=== PATIENT | female | born 1950 | race Caucasian/White ===

== ENCOUNTER 2017-08-07 21:45 | Emergency (ER) | payer OTHER, MEDICARE ==
[~2017-08-07] VITALS: Ht 160 cm; Wt 56.2 kg
[2017-08-08 00:04] LABS: BASOPHILS % 0.6 % (0.0-1.0); EOSINOPHILS # (AUTO) 0.3 (0.0-0.4); EOSINOPHILS % 4.9 % (0.0-6.0); HEMOGLOBIN 11.8 g/dL (12.0-16.0); LYMPHOCYTES # (AUTO) 0.9 (1.0-3.2); LYMPHOCYTES % 18.3 % (18.0-39.1); MEAN CORPUSCULAR HEMOGLOBIN 32.8 pg (28-32); MEAN CORPUSCULAR HGB CONC 33.7 g/dL (31-35); MEAN CORPUSCULAR VOLUME 97.2 fL (81-99); MONOCYTES # (AUTO) 0.3 (0.2-0.8); MONOCYTES % 6.6 % (4.4-11.3); NEUTROPHILS # (AUTO) 3.6 (2.1-6.9); NEUTROPHILS % 69.4 % (38.7-80.0); PLATELET COUNT 181 x10e3/uL (140-360); RED CELL DISTRIBUTION WIDTH 12.3 % (11.7-14.4)
[2017-08-08 00:06] LABS: ALANINE AMINOTRANSFERASE 21 IU/L (0-55); ALBUMIN 3.6 g/dL (3.5-5.0); ALBUMIN/GLOBULIN RATIO 0.9 (0.8-2.0); ALKALINE PHOSPHATASE 116 IU/L (40-150); BLOOD UREA NITROGEN 16 mg/dL (7-26); BUN/CREATININE RATIO 20 (6-25); CALCIUM 9.4 mg/dL (8.4-10.2); CARBON DIOXIDE 27 mmol/L (22-29); CHLORIDE 102 mmol/L (98-107); CREATINE KINASE 162 IU/L (29-168); CREATININE, SERUM 0.81 mg/dL (0.57-1.11); EST GLOMERULAR FILTRATION RATE > 60 ML/MIN (60-); GLUCOSE 119 mg/dL (74-118); SODIUM 140 mmol/L (136-145)
--- NOTE | 2017-08-08 00:15 | Diagnostic Imaging Report ---
Exam: Head CT without contrast History: Dizziness Comparison studies: Brain MRI 12/14/2011 Technique: Axial images were obtained from the skull base to the vertex. Coronal and sagittal images reconstructed from the axial data. Intravenous contrast: None Findings: Scalp: No abnormalities. Bones: No fractures, blastic or lytic lesions. Brain sulci: Mildly prominent. Ventricles: Mild compensatory dilatation. No hydrocephalus. Extra-axial spaces: No masses, no fluid collection. Parenchyma: No mass, acute hemorrhage or acute cortical vascular insults. A few scattered hypodensities in the supratentorial white matter are nonspecific but most compatible with chronic small vessel ischemic changes. Sellar/suprasellar region: No abnormalities. Craniocervical junction: Patent foramen magnum. No Chiari one malformation. Incidental findings: Atherosclerotic calcifications in the carotid siphons. IMPRESSION: No acute intracranial abnormalities. Chronic findings: 1. Mild generalized volume loss. 2. Moderate supratentorial microvascular ischemic changes. Signed by: Dr. Bradley Byrd M.D. on 08/08/2017 12:11 AM
== END 2017-08-08 01:50 | disposition home or self-care (01) ==
LOC: ER 21:45
DX: H57.02 Anisocoria (principal); Z82.49 Family history of ischemic heart disease and other diseases of the circulatory system
CPT/HCPCS: 36415; 70450; 80053; 82550; 82553; 84484; 85025; 93005; 99284

== ENCOUNTER → 2017-09-04 | Day surgery (SDC) | payer OTHER, MEDICARE ==
[~2017-09-04] MED LIST: ANASTROZOLE1 MG PO; CLONAZEPAM0.5 MG PO; CYMBALTA20 MG PO; DIAZEPAM5 MG PO; FENTANYL CITRATE/PF 100MCG/2 ML INJ ONE; GEODON20 MG PO; LIPITOR10 MG PO; LIPITOR20 MG PO; LISINOPRIL PO; MIDAZOLAM HCL 2 MG/2 ML VIAL ONE; OMEPRAZOLE40 MG PO; OR PHACO EYE KIT ONE; PREOP PHACO EYE KIT ONE; [UNRECOGNIZED DRUG - OTHER]; [UNRECOGNIZED DRUG - OTHER] PO
--- OUTSIDE RECORDS SUMMARY | 2017-09-04 10:58 | XMS REPORT | Clinical Summary ---
Author Author [facility] Address Unknown Phone Unavailable Care Team Providers Care Solar Business Developer Name Role Phone Asked, Pcp PCP Unavailable Allergies Active Allergy Reactions Severity Noted Date Comments Codeine 07/04/2017 Erythromycin Anaphylaxis High 04/12/2016 Iodine 07/04/2017 injectable Penicillins Anaphylaxis High 04/12/2016 Sulfur 07/04/2017 Current Medications Prescription Sig. Disp. Refills Start End Date Status Date omeprazole (PriLOSEC) 40 Take 40 mg by mouth Active MG capsule daily. clonAZEPAM (KlonoPIN) 2 Take 2 mg by mouth 2 Active MG tablet (two) times a day as needed for seizures. lamoTRIgine (LaMICtal) Take 300 mg by mouth Active 200 MG tablet nightly. Pt takes a 200mg and a 100mg tab together atorvastatin (LIPITOR) 20 Take 20 mg by mouth Active MG tablet daily. diazePAM (VALIUM) 10 MG Take 10 mg by mouth every Active tablet 6 (six) hours as needed for anxiety. DULoxetine (CYMBALTA) 60 Take 60 mg by mouth Active MG capsule daily. anastrozole (ARIMIDEX) 1 Take 1 mg by mouth daily. Active mg chemo tablet ziprasidone (GEODON) 80 Take 80 mg by mouth 2 Active MG capsule (two) times a day with meals. methylphenidate HCl Take 10 mg by mouth 2 Active (RITALIN) 10 MG tablet (two) times a day. ziprasidone (GEODON) 40 TAKE ONE (1) CAPSULE(S) 0 06/24/19 Active MG capsule BY MOUTH EVERY EVENING 18 WITH FOOD. asenapine (SAPHRIS) 10 mg Take 10 mg by mouth 2 07/04/19 Discontin tablet, sublingual (two) times a day. 18 ued lisinopril Take 10 mg by mouth 07/04/19 Discontin (PRINIVIL,ZESTRIL) 10 MG daily. 18 ued tablet diazepam (VALIUM) 10 MG Insert into the vagina 07/04/19 Discontin vaginal suppository once. 18 ued UNABLE TO FIND Take 1 tablet by mouth 07/04/19 Discontin daily. Hormone blockers 18 ued Active Problems Not on file Encounters Date Type Specialty Care Team Description 07/13/2017 [facility] General Surgery Gilbert Canales MD Encounter 07/13/2017 Procedure Pass Plastic Surgery 07/13/2017 Surgery Plastic Surgery Gilbert Canales MD REVISION, RECONSTRUCTION, BREAST 07/05/2017 Anesthesia Plastic Surgery [facility], Event Roxy, HEEL PAINTER 07/04/2017 Pre-Admit Pre-Admission Testing Gilbert Canales MD Preoperative testing Testing (Primary Dx) Appointment 06/15/2017 [facility] Radiology Gilbert Canales MD Personal history of Encounter malignant neoplasm of breast 06/15/2017 [facility] Radiology Gilbert Canales MD Personal history of Encounter malignant neoplasm of breast 06/15/2017 Ancillary Access Gilbert Canales MD Personal history of Orders malignant neoplasm of breast 06/06/2017 Transcribe Access Gilbert Canales MD Personal history of Orders malignant neoplasm of breast (Primary Dx) after 09/03/2016 Family History Medical History Relation Name Comments Diabetes Brother Hypertension Mother Relation Name Status Comments Brother Mother Social History Tobacco Use Types Packs/Day Years Used Date Never Smoker Smokeless Tobacco: Never Used Sex Assigned at Date Recorded Not on file Last Filed Vital Signs Vital Sign Reading Time Taken Blood Pressure 99/51 07/13/2017 6:47 PM MECHANICAL INSPECTOR Pulse 101 07/13/2017 6:47 PM MECHANICAL INSPECTOR Temperature 37.3 C (99.1 F) 07/13/2017 6:47 PM MECHANICAL INSPECTOR Respiratory Rate 18 07/13/2017 6:30 PM MECHANICAL INSPECTOR Oxygen Saturation 95% 07/13/2017 6:47 PM MECHANICAL INSPECTOR Inhaled Oxygen - - Concentration Weight 64.6 kg (142 lb 5 oz) 07/13/2017 6:36 AM MECHANICAL INSPECTOR Height 157.5 cm (5' 2") 07/13/2017 6:36 AM MECHANICAL INSPECTOR Body Mass Index 26.03 07/13/2017 6:36 AM MECHANICAL INSPECTOR Plan of Treatment Health Maintenance Due Date Last Done Comments PAP SMEAR 10/03/1972 COLONOSCOPY 10/03/2001 ZOSTER VACCINE 2011 PNEUMOCOCCAL 10/03/2016 POLYSACCHARIDE VACCINE AGE 65 AND OVER PNEUMOCOCCAL-13 10/03/2016 INFLUENZA VACCINE 01/16/2017 MAMMOGRAM 06/15/2019 06/15/2017, 06/15/2017 Implants Implanted Type Area Production Analyst Device Expiration Model / Identifier Date Serial / Lot 770cc Natrelle Inspira Scf Gel Surgical Right: [employer] 2021 SCF-770 / Breast Implant, Full Projection Implants - Breast [id number] / Implanted: Qty: 1 on 07/13/2017 by Breast [id number] Gilbert Canales MD 750cc Natrelle Inspira Cohesive Surgical Left: [employer] 2021 SCX-750 / Breast Implant Implants - Breast [id number] / Implanted: Qty: 1 on 07/13/2017 by Breast [id number] Gilbert Canales MD Drain Wound Hbls Round Radopaq Surgical N/A: N/A 2228 / Trocar Maria Antonia White 0.18in 15fr - Implants; / [id number] Expanders; Implanted: Qty: 1 on 04/24/2016 by Extenders; Gilbert Canales MD Surgical Wires Explanted Type Area Production Analyst Device Expiration Model / Identifier Date Serial / Lot Breast Impl Inspira Responsive Gel Plastic or Left: [employer] 2019 SRX 700 / Ex-Full Profile 700cc - [id number] - Cosmetic [employer] [id number] / [id number] Implants [id number] Implanted: Qty: 1 on 04/24/2016 by or Tissue Gilbert Canales MD Expanders Explanted: Qty: 1 on 07/13/2017 by or Sets Gilbert Canalse MD [employer] Hp 800cc Right: / Explanted: Qty: 2 on 07/13/2017 by Breast / Gilbert Canales MD [id number] Procedures Procedure Name Priority Date/Time Associated Diagnosis Comments ME AN ELECTIVE Routine 07/13/2017 ENDOTRACHEAL AIRWAY 8:40 AM MECHANICAL INSPECTOR Procedure Note - Taylor Tellez MD - 07/13/2017 8:12 AM MECHANICAL INSPECTOR Airway Performed by: TAYLOR TELLEZ Authorized by: TAYLOR TELLEZ Location: OR Urgency: Elective Difficult Airway: No Anesthesio logist: TAYLOR TELLEZ Performed by: anesthesio logist Preoxygena priyanka with 100% O2: Yes C-spine Precaution s Maintained Throughout : No Mask Ventilatio n: Easy mask Final Airway Type: Endotrache al airway Final Endotrache al Airway: ETT Cuffed: Yes Technique Used: Direct laryngosco py Devices/Me thods Used in Placement: Intubatin g stylet Insertion Site: Oral Blade Type: Marvel Laryngosco pe Blade/Vide olaryngosc ope Blade Size: 3 ETT Size (mm): 7.0 Cuff at minimum occlusion pressure: Yes Measured from: Teeth ETT to Teeth (cm): 22 Placement Verified by: CO2 detection and direct visualizat ion Laryngosco pic view: Grade I - full view of glottis Rapid Sequence Induction (RSI): No Modified RSI: No Number of Attempts at Approach: 1 Eyes taped at LOC Plastic dental guard placed while mask ventilatin g and maintained during intubation Easy, atraumatic intubation Dentition intact and unchanged ETT taped to right side per patient request (temporary bridge on left) INJECTION, FAT GRAFT, 07/13/2017 Z85.3 HX BR CA BREASTS 7:30 AM MECHANICAL INSPECTOR Case Notes EST 3 HRS, PUREGRAFT Special Needs EST 3 HRS, PUREGRAFT REMOVAL/ REPLACEMENT, 07/13/2017 Z85.3 HX BR CA IMPLANT, BREAST 7:30 AM MECHANICAL INSPECTOR Case Notes EST 3 HRS, PUREGRAFT Special Needs EST 3 HRS, PUREGRAFT REVISION, RECONSTRUCTION, 07/13/2017 Z85.3 HX BR CA BREAST 7:30 AM MECHANICAL INSPECTOR Case Notes EST 3 HRS, PUREGRAFT Special Needs EST 3 HRS, PUREGRAFT after 09/03/2016 Results * Surgical pathology request (07/13/2017 3:00 PM) Component Value Ref Range Surgical pathology report See link below for PDF Lab Report Result status This is Final Report to [id number] Specimen Performing Laboratory [facility] DEPARTMENT OF PATHOLOGY AND GENOMIC MEDICINE [address] [place] [id number] * ECG Pre/Post Op (07/04/2017 3:49 PM) Component Value Ref Range Ventricular rate 76 Atrial rate 76 ME interval 118 QRSD interval 86 QT interval 404 QTC interval 454 P axis 1 33 QRS axis 1 17 T wave axis 33 EKG impression Normal sinus rhythm-Low voltage QRS-Borderline ECG-In automated comparison with ECG of 12-APR-2016 15:51,-No significant change was found- Specimen Performing Laboratory [facility] [address] [place] [address] * Estimated GFR (07/04/2017 3:45 PM) Component Value Ref Range GFR Non Af Amer 63 mL/min/1.73 m2 GFR Af Amer 76 mL/min/1.73 m2 Comment: Chronic kidney disease: <60 mL/min/1.73m2 Kidney failure: <15 mL/min/1.73m2 The estimated GFR is calculated from the IDMS-traceable Modification of Diet in Renal Disease Equation. The accuracy of the calculation is poor when the creatinine is normal. Calculated values >90 mL/min/1.73m2 are not reported. This equation has not been validated in children (<18 years), women, the elderly (>70 years), or ethnic groups other than Caucasians and Americans. Specimen Performing Laboratory Plasma specimen [facility] DEPARTMENT OF PATHOLOGY AND GENOMIC MEDICINE [address] [place] [address] * CBC hemogram (07/04/2017 3:45 PM) Component Value Ref Range WBC 4.55 4.50 - 11.00 k/uL RBC 4.14 (L) 4.20 - 5.50 m/uL HGB 13.4 12.0 - 16.0 g/dL HCT 40.8 37.0 - 47.0 % MCV 98.6 82.0 - 100.0 fL MCH 32.4 27.0 - 34.0 pg MCHC 32.8 31.0 - 37.0 g/dL RDW - SD 43.4 37.0 - 55.0 fL MPV 10.9 8.8 - 13.2 fL Platelet count 239 150 - 400 k/uL Nucleated RBC 0.00 /100 WBC Specimen Performing Laboratory Blood [facility] DEPARTMENT OF PATHOLOGY AND GENOMIC MEDICINE [address] [place] [id number] * Comprehensive metabolic panel (07/04/2017 3:45 PM) Component Value Ref Range Sodium 141 135 - 148 mEq/L Potassium 4.4 3.5 - 5.0 mEq/L Chloride 111 98 - 112 mEq/L CO2 29 24 - 31 mEq/L Anion gap 1 (L) 7 - 15 mEq/L Comment: Starting from September , anion gap calculation no longer incorporates potassium. Please note the change. BUN 13 8 - 23 mg/dL Creatinine 0.9 0.5 - 0.9 mg/dL Glucose 87 65 - 99 mg/dL Calcium 9.7 8.8 - 10.2 mg/dL Protein 7.5 6.3 - 8.3 g/dL Comment: 4.6-7.0 g/dL 1 week 4.4-7.6 g/dL 7 months-1year 5.1-7.3 g/dL 1-2 years 5.6-7.5 g/dL >3 years 6.0-8.0 g/dL 18-150 6.3-8.3 g/dL Albumin 3.8 3.5 - 5.0 g/dL A/G ratio 1.0 0.7 - 3.8 Alkaline phosphatase 118 (H) 35 - 104 U/L AST 20 10 - 35 U/L ALT 29 5 - 50 U/L Total bilirubin 0.4 0.0 - 1.2 mg/dL Specimen Performing Laboratory Plasma specimen [facility] DEPARTMENT OF PATHOLOGY AND GENOMIC MEDICINE [address] [place] [address] * US Breast Complete Bilateral (06/15/2017 3:55 PM) Specimen Performing Laboratory [facility] [address] [place] [id number] Narrative EXAMINATION:MAMMO DIAGNOSTIC W CAD BILATERAL, US BREAST COMPLETE BILATERAL INDICATION: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 Further history indicates some benign biopsy on the right in 2017. Benign lumpectomy on the left years ago. Saline implants appear to be present bilaterally retropectoral area. Present breast complaint: Scar tissue in right breast; needs to have revision surgery. COMPARISON:None available FINDINGS: Retropectoral implants are present bilaterally. No abnormal shape size or configuration. The breasts are heterogeneously dense which, may obscure small masses.There is post lumpectomy scar in the right upper breast which is the area pain that measures around 2.4 x 1.5 cm. No areas of new or recurrent calcification or mass noted with standard as well as implant displacement views in the right breast. Incidentally a little lower than the scar, behind the nipple, at posterior depth is a wing clip apparently from other prior benign biopsy. No abnormal adenopathy noted. On the left there is evidence of a medial circumscribed isodense mass measuring roughly 12 mm. There is also evidence of some fairly superficial small lucent oil cysts noted near the skin surface in the upper anterior breast measuring around 5 mm. No suspicious mass seen on the left either. Bilateral whole breast sonography was performed by both the signal mechanic and myself. This included sonographic evaluation of all 4 quadrants as well as the subareolar regions bilaterally.Prominent scar with irregular margins and measurements of about 1.1 x 2 cm x 1.7 cm. This is posterior near the pectoralis major muscle at the 12 o'clock position in the right breast. No sign of any new mass. In the left breast a prominent simple cyst measuring 1.3 cm in maximum diameter is noted and smaller subcentimeter well-circumscribed oil cyst are noted with no suspicious masses seen on ultrasound on the left either. IMPRESSION:Postoperative changes on the right. No sign of any new or recurrent disease process. Prominent scar right upper breast. RECOMMENDATION: Recommend annual follow-up if there is no interval change in the physical examination. BI-RADS 2: BENIGN. 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 Further history indicates some benign biopsy on the right in 2017. Benign lumpectomy on the left years ago. Saline implants appear to be present bilaterally retropectoral area. Present breast complaint: Scar tissue in right breast; needs to have revision surgery. COMPARISON:None available FINDINGS: Retropectoral implants are present bilaterally. No abnormal shape size or configuration. The breasts are heterogeneously dense which, may obscure small masses.There is post lumpectomy scar in the right upper breast which is the area pain that measures around 2.4 x 1.5 cm. No areas of new or recurrent calcification or mass noted with standard as well as implant displacement views in the right breast. Incidentally a little lower than the scar, behind the nipple, at posterior depth is a wing clip apparently from other prior benign biopsy. No abnormal adenopathy noted. On the left there is evidence of a medial circumscribed isodense mass measuring roughly 12 mm. There is also evidence of some fairly superficial small lucent oil cysts noted near the skin surface in the upper anterior breast measuring around 5 mm. No suspicious mass seen on the left either. Bilateral whole breast sonography was performed by both the signal mechanic and myself. This included sonographic evaluation of all 4 quadrants as well as the subareolar regions bilaterally.Prominent scar with irregular margins and measurements of about 1.1 x 2 cm x 1.7 cm. This is posterior near the pectoralis major muscle at the 12 o'clock position in the right breast. No sign of any new mass. In the left breast a prominent simple cyst measuring 1.3 cm in maximum diameter is noted and smaller subcentimeter well-circumscribed oil cyst are noted with no suspicious masses seen on ultrasound on the left either. IMPRESSION:Postoperative changes on the right. No sign of any new or recurrent disease process. Prominent scar right upper breast. RECOMMENDATION: Recommend annual follow-up if there is no interval change in the physical examination. BI-RADS 2: BENIGN. [facility]-[id number] after 09/03/2016 Insurance Payer Benefit Subscriber ID Type Phone Address Plan / Group MEDICARE MEDICARE xxxxxxxxxx Medicare [place], [place] PART A AND B AETNA AETNA xxxxxxxxxx HMO HMO,POS,EP O, MC/EC
--- OUTSIDE RECORDS SUMMARY | 2017-09-04 10:58 | XMS REPORT | Continuity of Care Document ---
Author Author [facility] Organization [facility] Address [address] [place] [address] Phone Unavailable Care Team Providers Care Assistant Tennis Coach Name Role Phone CHRISTOPHER MONTENEGRO MD PCP Insurance Providers Guarantor Ean Hernandez Address [address] [place] [address] Payer A[employer] Pos Policy Number [id number] Subscriber's Name Leonardo Hernandez Relationship 18 Self / Same As Patient Payer Medicare A & B Policy Number [id number] Subscriber's Name NguyễnLeonardo Relationship 18 Self / Same As Patient Advance Directives Directive Response Recorded Date/Time Does the patient have an advance directive? No 11/19/06 3:50pm If yes, is advance directive on file with [facility]? No 11/19/06 3:50pm If not on file with [facility] will patient provide a copy? Yes 08/08/17 12:49am Do you have a Directive to Physician? No 08/08/17 12:49am Do you have a Medical Power of Seasonal Package Handler? No 08/08/17 12:49am Do you have an out of hospital Do Not Resuscitate Order? No 08/08/17 12:49am Do you have any special needs we should be aware of? No 08/08/17 12:49am Do you have a support person here with you today? Yes 08/08/17 12:49am Did patient receive Notice of Privacy Practices? Yes 08/08/17 12:49am Did patient receive patient rights and responsibilities? Yes 08/08/17 12:49am Problems No problem information available. Medications No medication information available. Social History No social history information available. Hospital Discharge Instructions No hospital discharge instruction information available. Plan of Care Discharge Date 08/08/17 1:50am Disposition HOME, SELF-CARE Condition at Discharge Stable Instructions/Education Provided Fall Prevention Vertigo Forms Provided Work/School Excuse Prescriptions See Medication Section Referrals CHRISTOPHER MONTENEGRO MD Order Date: Call for an appointment Address: [address] [place] [id number] Additional Instructions/Education FOLLOW-UP WITH YOUR PCP AND OPTHALMOLOGIST TOMORROW TAKE MEDICATIONS PRESCRIBED Functional Status No functional status information available. Allergies, Adverse Reactions, Alerts Allergen Type Severity Reaction Status Last Updated Penicillin Allergy Mild Active 11/22/06 Sulfa (Sulfonamide Antibiotics) Allergy Mild Active 11/22/06 Iodine Allergy Mild Active 11/22/06 Codeine Allergy Active 09/24/15 MYCIN Allergy Active 09/24/15 Immunizations No immunization information available. Vital Signs Acute Vital Signs Vital Response Date/Time Height 5 ft 3 in 08/07/2017 10:01pm Weight 124 lb 08/07/2017 10:01pm Body Mass Index 22.0 kg/m^2 08/07/2017 10:01pm Results Laboratory Results Test Name Result Units Flags Reference Collection Date/Time Result Date/ Time Comments White Blood Count 5.14 x10e3/uL 4.8-10.8 08/07/2017 11:10pm 08/08/2017 12:05am Red Blood Count 3.60 x10e6/uL 3.6-5.1 08/07/2017 11:10pm 08/08/2017 12: 05am Hemoglobin 11.8 g/dL L 12.0-16.0 08/07/2017 11:10pm 08/08/2017 12:05am Hematocrit 35.0 % 34.2-44.1 08/07/2017 11:10pm 08/08/2017 12:05am Mean Corpuscular Volume 97.2 fL 81-99 08/07/2017 11:08/08/2017 12: 05am Mean Corpuscular Hemoglobin 32.8 pg H 28-32 08/07/2017 11:102017 12:05am Mean Corpuscular Hemoglobin Concent 33.7 g/dL 31-35 08/07/2017 11:1008/08/2017 12:05am Red Cell Distribution Width 12.3 % 11.7-14.4 08/07/2017 11:102017 12:05am Platelet Count 181 x10e3/uL 140-360 08/07/2017 11:1008/08/2017 12: 05am Neutrophils (%) (Auto) 69.4 % 38.7-80.0 08/07/2017 11:08/08/2017 12:05am Lymphocytes (%) (Auto) 18.3 % 18.0-39.1 08/07/2017 11:1008/08/2017 12:05am Monocytes (%) (Auto) 6.6 % 4.4-11.3 08/07/2017 11:08/08/2017 12: 05am Eosinophils (%) (Auto) 4.9 % 0.0-6.0 08/07/2017 11:08/08/2017 12: 05am Basophils (%) (Auto) 0.6 % 0.0-1.0 08/07/2017 11:08/08/2017 12: 05am IM GRANULOCYTES % 0.2 % 0.0-1.0 08/07/2017 11:08/08/2017 12:05am Neutrophils # (Auto) 3.6 2.1-6.9 08/07/2017 11:1008/08/2017 12: 05am Lymphocytes # (Auto) 0.9 L 1.0-3.2 08/07/2017 11:1008/08/2017 12: 05am Monocytes # (Auto) 0.3 0.2-0.8 08/07/2017 11:1008/08/2017 12:05am Eosinophils # (Auto) 0.3 0.0-0.4 08/07/2017 11:1008/08/2017 12: 05am Basophils # (Auto) 0.0 0.0-0.1 08/07/2017 11:1008/08/2017 12:05am Absolute Immature Granulocyte (auto 0.01 x10e3/uL 0-0.1 08/07/2017 11: 1008/08/2017 12:05am Sodium Level 140 mmol/L 136-145 08/07/2017 11:1008/08/2017 12:09am Potassium Level 4.0 mmol/L 3.5-5.1 08/07/2017 11:1008/08/2017 12: 09am Chloride Level 102 mmol/L 98-107 08/07/2017 11:1008/08/2017 12:09am Carbon Dioxide Level 27 mmol/L 22-29 08/07/2017 11:1008/08/2017 12: 09am Anion Gap 15.0 mmol/L 8-16 08/07/2017 11:10pm 08/08/2017 12:09am Blood Urea Nitrogen 16 mg/dL 7-26 08/07/2017 11:1008/08/2017 12: 09am Creatinine 0.81 mg/dL 0.57-1.11 08/07/2017 11:1008/08/2017 12:09am BUN/Creatinine Ratio 20 6-25 08/07/2017 11:1008/08/2017 12:09am Estimat Glomerular Filtration Rate > 60 ML/MIN 60- 08/07/2017 11:1008/08/2017 12:09am Ranges were taken from the National Kidney Disease Education Program and the National Kidney Foundation literature. Reference ranges: 60 or greater: Normal 16-59 (for 3 consecutive months): Chronic kidney disease 15 or less: Kidney failure Glucose Level 119 mg/dL H 74-118 08/07/2017 11:1008/08/2017 12:09am Calcium Level 9.4 mg/dL 8.4-10.2 08/07/2017 11:1008/08/2017 12:09am Total Bilirubin < 0.3 mg/dL 0.2-1.2 08/07/2017 11:1008/08/2017 12: 09am Aspartate Amino Transf (AST/SGOT) 22 IU/L 5-34 08/07/2017 11:10pm 08/08 12:09am Alanine Aminotransferase (ALT/SGPT) 21 IU/L 0-55 08/07/2017 11:10pm 12:09am Total Protein 7.4 g/dL 6.5-8.1 08/07/2017 11:10pm 08/08/2017 12:09am Albumin 3.6 g/dL 3.5-5.0 08/07/2017 11:10pm 08/08/2017 12:09am Globulin 3.8 g/dL H 2.3-3.5 08/07/2017 11:10pm 08/08/2017 12:09am Albumin/Globulin Ratio 0.9 0.8-2.0 08/07/2017 11:10pm 08/08/2017 12: 09am Alkaline Phosphatase 116 IU/L 40-150 08/07/2017 11:10pm 08/08/2017 12: 09am Creatine Kinase 162 IU/L 29-168 08/07/2017 11:10pm 08/08/2017 12:09am Creatine Kinase MB 1.20 ng/mL 0-5.0 08/07/2017 11:10pm 08/08/2017 12: 09am Troponin I < 0.001 ng/mL 0-0.300 08/07/2017 11:10pm 08/08/2017 12:09am Procedures Procedure Status Date Provider(s) Computed tomography of brain without radiopaque contrast Active 08/07/17 NANCY MCKINNEY MD Encounters Encounter Location Arrival/Admit Date Discharge/Depart Date Attending Provider Departed Emergency Room [facility] 08/07/17 9:45pm 1:50am NANCY MCKINNEY MD
--- OUTSIDE RECORDS SUMMARY | 2017-09-04 10:58 | XMS REPORT ---
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 Allergies, Adverse Reactions, Alerts This patient has no known allergies or adverse reactions. Medications This patient has no known medications. Results Test Description Test Time Test Comments Text Results Atomic Results Result Comments CT BRAIN WO [place] [address] Patient Name: JAQUAN HERNANDEZ MR #: [id number] : 1950 Age/Sex: 66/F Req #: [id number] Adm Physician: Ordered by: NANCY MCKINNEY MD Report #: [id number] Location: ER Room/Bed: Procedure: [id number] CT/CT BRAIN WO Exam Date: Exam Time: REPORT STATUS : Signed Exam: Head CT without contrast History: Dizziness Comparison studies: Brain MRI 12/14/2011 Technique: Axial images were obtained from the skull base to the vertex. Coronal and sagittal images reconstructed from the axial data. Intravenous contrast: None Findings: Scalp: No abnormalities. Bones: No fractures, blastic or lytic lesions. Brain sulci : Mildly prominent. Ventricles: Mild compensatory dilatation. No hydrocephalus. Extra-axial spaces: No masses, no fluid collection. Parenchyma: No mass, acute hemorrhage or acute cortical vascular insults. A few scattered hypodensities in the supratentorial white matter are nonspecific but most compatible with chronic small vessel ischemic changes. Sellar/suprasellar region: No abnormalities. Craniocervical junction: Patent foramen magnum. No Chiari one malformation. Incidental findings: Atherosclerotic calcifications in the carotid siphons. IMPRESSION: No acute intracranial abnormalities. Chronic findings: 1. Mild generalized volume loss. 2. Moderate supratentorial microvascular ischemic changes. Signed by: Dr. Omero Byrd M.D. on 08/08/2017 12:11 AM Dictated By: OMERO BYRD MD Transcribed By: JAMILA on 08/08/1710 COPY TO: NANCY MCKINNEY MD
== END | disposition home or self-care (01) ==
LOC: OR 10:55
PROVIDERS: ATTEND Ophthalmology
DX: H25.11 Age-related nuclear cataract, right eye (principal); I10 Essential (primary) hypertension; R42 Dizziness and giddiness; K21.9 Gastro-esophageal reflux disease without esophagitis; F31.9 Bipolar disorder, unspecified
CPT/HCPCS: 66984; J2250; V2632

== ENCOUNTER → 2017-09-18 | Day surgery (SDC) | payer OTHER, MEDICARE ==
[~2017-09-18] MED LIST changes: +CIPROFLOXACIN HCL (OPTH OINT) 3.5 GM TUBE OP ONE
--- OUTSIDE RECORDS SUMMARY | 2017-09-18 12:32 | XMS REPORT | Clinical Summary ---
Author Author [facility] Address Unknown Phone Unavailable Care Team Providers Care Hazmat Cdl Driver Name Role Phone Asked, Pcp PCP Unavailable [...] Date Type Specialty Care Team Description 07/13/2017 [facility] General Surgery Gilbert aCnales MD Encounter 07/13/2017 Procedure Pass Plastic Surgery 07/13/2017 Surgery Plastic Surgery Gilbert Canales MD REVISION, RECONSTRUCTION, BREAST 07/05/2017 Anesthesia Plastic Surgery [facility], Event Roxy, TYPING BOOKKEEPER 07/04/2017 Pre-Admit Pre-Admission Testing Gilbert Canales MD Preoperative testing Testing (Primary Dx) Appointment 06/15/2017 [facility] Radiology Gilbert Canales MD Personal history of Encounter malignant neoplasm of breast 06/15/2017 [facility] Radiology Gilbert Canales MD Personal history of Encounter malignant neoplasm of breast 06/15/2017 Ancillary Access Gilbert Canales MD Personal history of Orders malignant neoplasm of breast 06/06/2017 Transcribe Access Gilbert Canales MD Personal history of Orders malignant neoplasm of breast (Primary Dx) after 09/17/2016 Family History Medical History Relation Name Comments Diabetes Brother Hypertension Mother Relation Name Status Comments Brother Mother Social History Tobacco Use Types Packs/Day Years Used Date Never Smoker Smokeless Tobacco: Never Used Sex Assigned at Date Recorded Not on file Last Filed Vital Signs Vital Sign Reading Time Taken Blood Pressure 99/51 07/13/2017 6:47 PM LUNCHROOM OPERATOR Pulse 101 07/13/2017 6:47 PM LUNCHROOM OPERATOR Temperature 37.3 C (99.1 F) 07/13/2017 6:47 PM LUNCHROOM OPERATOR Respiratory Rate 18 07/13/2017 6:30 PM LUNCHROOM OPERATOR Oxygen Saturation 95% 07/13/2017 6:47 PM LUNCHROOM OPERATOR Inhaled Oxygen - - Concentration Weight 64.6 kg (142 lb 5 oz) 07/13/2017 6:36 AM LUNCHROOM OPERATOR Height 157.5 cm (5' 2") 07/13/2017 6:36 AM LUNCHROOM OPERATOR Body Mass Index 26.03 07/13/2017 6:36 AM LUNCHROOM OPERATOR Plan of Treatment Health Maintenance Due Date Last Done Comments PAP SMEAR 10/03/1972 COLONOSCOPY 10/03/2001 ZOSTER VACCINE 2011 PNEUMOCOCCAL 10/03/2016 POLYSACCHARIDE VACCINE AGE 65 AND OVER PNEUMOCOCCAL-13 10/03/2016 INFLUENZA VACCINE 01/16/2017 MAMMOGRAM 06/15/2019 06/15/2017, 06/15/2017 Implants Implanted Type Area Rail Loader Device Expiration Model / Identifier Date Serial / Lot 770cc Natrelle Inspira Scf Gel Surgical Right: [employer] 2021 SCF-770 / Breast Implant, Full Projection Implants - Breast [id number] / Implanted: Qty: 1 on 07/13/2017 by Breast [id number] Gilbert Canales MD 750cc Natrelle Inspira Cohesive Surgical Left: [employer] 2021 SCX-750 / Breast Implant Implants - Breast [id number] / Implanted: Qty: 1 on 07/13/2017 by Breast [id number] Gilbert Canales MD Drain Wound Hbls Round Radopaq Surgical N/A: N/A 2228 / Trocar Maria Antonia White 0.18in 15fr - Implants; / [id number] Expanders; Implanted: Qty: 1 on 04/24/2016 by Extenders; Gilbert Canales MD Surgical Wires Explanted Type Area Rail Loader Device Expiration Model / Identifier Date Serial / Lot Breast Impl Inspira Responsive Gel Plastic or Left: [employer] 2019 SRX 700 / Ex-Full Profile 700cc - [id number] - Cos[employer] [id number] / [id number] Implants [id number] Implanted: Qty: 1 on 04/24/2016 by or Tissue Gilbert Canales MD Expanders Explanted: Qty: 1 on 07/13/2017 by or Sets Gilbert Canales MD [place] [facility] 800cc Right: / Explanted: Qty: 2 on 07/13/2017 by Breast / Gilbert Canales MD [id number] Procedures Procedure Name Priority Date/Time Associated Diagnosis Comments DC AN ELECTIVE Routine 07/13/2017 ENDOTRACHEAL AIRWAY 8:40 AM LUNCHROOM OPERATOR Procedure Note - Taylor Tellez MD - 07/13/2017 8:12 AM LUNCHROOM OPERATOR Airway Performed by: TAYLOR TELLEZ Authorized by: [...] Z85.3 HX BR CA BREASTS 7:30 AM LUNCHROOM OPERATOR Case Notes EST 3 HRS, PUREGRAFT Special Needs EST 3 HRS, PUREGRAFT REMOVAL/ REPLACEMENT, 07/13/2017 Z85.3 HX BR CA IMPLANT, BREAST 7:30 AM LUNCHROOM OPERATOR Case Notes EST 3 HRS, PUREGRAFT Special Needs EST 3 HRS, PUREGRAFT REVISION, RECONSTRUCTION, 07/13/2017 Z85.3 HX BR CA BREAST 7:30 AM LUNCHROOM OPERATOR Case Notes EST 3 HRS, PUREGRAFT Special Needs EST 3 HRS, PUREGRAFT after 09/17/2016 Results * Surgical pathology request (07/13/2017 3:00 PM) Component Value Ref Range Surgical pathology report See link below for PDF Lab Report Result status This is Final Report to [id number] Specimen Performing Laboratory [facility] DEPARTMENT OF PATHOLOGY AND GENOMIC MEDICINE [address] [place] [address] * ECG Pre/Post Op (07/04/2017 3:49 PM) Component Value Ref Range Ventricular rate 76 Atrial rate 76 DC interval 118 QRSD interval 86 QT interval 404 QTC interval 454 P axis 1 33 QRS axis 1 17 T wave axis 33 EKG impression Normal sinus rhythm-Low voltage QRS-Borderline ECG-In automated comparison with ECG of 12-APR-2016 15:51,-No significant change was found- Specimen Performing Laboratory [facility] [address] [place] [address] * Estimated GFR (07/04/2017 3:45 PM) Component [...] and Americans. Specimen Performing Laboratory Plasma specimen [facility] DEPARTMENT OF PATHOLOGY AND GENOMIC MEDICINE [address] [place] [address] * CBC hemogram (07/04/2017 3:45 PM) Component [...] 0.00 /100 WBC Specimen Performing Laboratory Blood [facility] DEPARTMENT OF PATHOLOGY AND GENOMIC MEDICINE [address] [place] [address] * Comprehensive metabolic panel (07/04/2017 3:45 PM) [...] 1.2 mg/dL Specimen Performing Laboratory Plasma specimen [facility] DEPARTMENT OF PATHOLOGY AND GENOMIC MEDICINE [address] [place] [address] * US Breast Complete Bilateral (06/15/2017 3:55 PM) Specimen Performing Laboratory [facility] [address] [place] [address] Narrative EXAMINATION:MAMMO DIAGNOSTIC W CAD BILATERAL, US [...] breast sonography was performed by both the it compliance manager and myself. This included sonographic evaluation of [...] in the physical examination. BI-RADS 2: BENIGN. [facility]-[id number] * Mammo Diagnostic w Cad Bilateral (06/15/2017 3:07 PM) Specimen Performing Laboratory [facility] [address] [place] [address] Narrative EXAMINATION:MAMMO DIAGNOSTIC W CAD BILATERAL, US [...] breast sonography was performed by both the it compliance manager and myself. This included sonographic evaluation of [...] in the physical examination. BI-RADS 2: BENIGN. [facility]-[id number] after 09/17/2016 Insurance Payer Benefit Subscriber ID Type Phone Address Plan / Group MEDICARE MEDICARE xxxxxxxxxx Medicare [place], [place] PART A AND B AETNA AETNA xxxxxxxxxx HMO HMO,POS,EP O, MC/EC
== END | disposition home or self-care (01) ==
LOC: OR 12:29
PROVIDERS: ATTEND Ophthalmology
DX: H25.12 Age-related nuclear cataract, left eye (principal); M19.90 Unspecified osteoarthritis, unspecified site; I10 Essential (primary) hypertension; E78.5 Hyperlipidemia, unspecified; K21.9 Gastro-esophageal reflux disease without esophagitis; K58.9 Irritable bowel syndrome, unspecified; F31.9 Bipolar disorder, unspecified; F41.9 Anxiety disorder, unspecified; Z88.5 Allergy status to narcotic agent; Z88.0 Allergy status to penicillin; Z88.2 Allergy status to sulfonamides; Z85.3 Personal history of malignant neoplasm of breast
CPT/HCPCS: 66984; J2250; V2632

== ENCOUNTER 2018-12-11 13:26 | Emergency (ER) | payer MEDICARE, OTHER ==
[~2018-12-11] VITALS: Ht 160 cm; Wt 56.2 kg
[~2018-12-11 13:26] MED LIST changes: -CIPROFLOXACIN HCL (OPTH OINT) 3.5 GM TUBE OP ONE; -FENTANYL CITRATE/PF 100MCG/2 ML INJ ONE; -MIDAZOLAM HCL 2 MG/2 ML VIAL ONE; -OR PHACO EYE KIT ONE; -PREOP PHACO EYE KIT ONE
--- OUTSIDE RECORDS SUMMARY | 2018-12-11 13:30 | XMS REPORT | Continuity of Care Document ---
Author Author [facility] Address Unknown Phone Unavailable Problems Problem Status Onset Date Classification Date Reported Comments Source Medications Medication Details Route Status Patient Instructions Ordering Provider Order Date Source Allergies, Adverse Reactions, Alerts Substance Category Reaction Severity Reaction type Status Date Reported Comments Source Penicillin Mild Allergy to Substance Active 11/22/2006 [facility] Sulfa (Sulfonamide Antibiotics) Mild Allergy to Substance Active 11/22/2006 [facility] Iodine Mild Allergy to Substance Active 11/22/2006 [facility] Codeine Allergy to Substance Active 09/24/2015 [facility] MYCIN Allergy to Substance Active 09/24/2015 [facility] Immunizations Immunization Date Given Site Status Last Updated Comments Source Results Order Name Results Value Reference Range Date Interpretation Comments Source Automated blood basophil count (count/volume) Automated blood basophil count (count/volume) 0.0 0.0 - 0.1 08/07/2017 [facility] Automated blood basophil count as percentage of total leukocytes Automated blood basophil count as percentage of total leukocytes 0.6 0.0 - 1.0 08/07/2017 [facility] Automated blood eosinophil count Automated blood eosinophil count 0.3 0.0 - 0.4 08/07/2017 [facility] Automated blood eosinophil count as percentage of total leukocytes Automated blood eosinophil count as percentage of total leukocytes 4.9 0.0 - 6.0 08/07/2017 [facility] Automated blood hematocrit (volume fraction) Automated blood hematocrit (volume fraction) 35.0 34.2 - 44.1 08/07/2017 [facility] Automated blood lymphocyte count as percentage ot total leukocytes Automated blood lymphocyte count as percentage ot total leukocytes 18.3 18.0 - 39.1 08/07/2017 [facility] Automated blood monocyte count as percentage of total leukocytes Automated blood monocyte count as percentage of total leukocytes 6.6 4.4 - 11.3 08/07/2017 [facility] Automated blood neutrophil count Automated blood neutrophil count 3.6 2.1 - 6.9 08/07/2017 [facility] Automated blood platelet count (count/volume) Automated blood platelet count (count/volume) 181 140 - 360 08/07/2017 [facility] Automated blood segmented neutrophil count as percentage of total leukocytes Automated blood segmented neutrophil count as percentage of total leukocytes 69.4 38.7 - 80.0 08/07/2017 [facility] Automated erythrocyte mean corpuscular hemoglobin (mass per erythrocyte) Automated erythrocyte mean corpuscular hemoglobin (mass per erythrocyte) 32.8 28 - 32 08/07/2017 [facility] Automated erythrocyte mean corpuscular hemoglobin concentration measurement (mass/volume) Automated erythrocyte mean corpuscular hemoglobin concentration measurement (mass/volume) 33.7 31 - 35 08/07/2017 [facility] Automated erythrocyte mean corpuscular volume Automated erythrocyte mean corpuscular volume 97.2 81 - 99 08/07/2017 [facility] Blood erythrocytes automated count (number/volume) Blood erythrocytes automated count (number/volume) 3.60 3.6 - 5.1 08/07/2017 [facility] Blood hemoglobin measurement (moles/volume) Blood hemoglobin measurement (moles/volume) 11.8 12.0 - 16.0 08/07/2017 [facility] Blood leukocytes automated count (number/volume) Blood leukocytes automated count (number/volume) 5.14 4.8 - 10.8 08/07/2017 [facility] Blood lymphocytes count (number/volume) Blood lymphocytes count (number/volume) 0.9 1.0 - 3.2 08/07/2017 [facility] Blood monocytes automated count (number/volume) Blood monocytes automated count (number/volume) 0.3 0.2 - 0.8 08/07/2017 [facility] Estimated glomerular filtration rate (GFR) determination Estimated glomerular filtration rate (GFR) determination null 60 08/07/2017 [facility] Glucose measurement Glucose measurement 119 74 - 118 08/07/2017 [facility] Plasma globulin measurement (mass/volume) Plasma globulin measurement (mass/volume) 3.8 2.3 - 3.5 08/07/2017 [facility] Serum or plasma alanine aminotransferase measurement (enzymatic activity/volume) Serum or plasma alanine aminotransferase measurement (enzymatic activity/volume) 21 0 - 55 08/07/2017 [facility] Serum or plasma albumin measurement (mass/volume) Serum or plasma albumin measurement (mass/volume) 3.6 3.5 - 5.0 08/07/2017 [facility] Serum or plasma albumin/globulin mass ratio Serum or plasma albumin/globulin mass ratio 0.9 0.8 - 2.0 08/07/2017 [facility] Serum or plasma alkaline phosphatase measurement (enzymatic activity/volume) Serum or plasma alkaline phosphatase measurement (enzymatic activity/volume) 116 40 - 150 08/07/2017 [facility] Serum or plasma anion gap Serum or plasma anion gap 15.0 8 - 16 08/07/2017 [facility] Serum or plasma calcium measurement (mass/volume) Serum or plasma calcium measurement (mass/volume) 9.4 8.4 - 10.2 08/07/2017 [facility] Serum or plasma carbon dioxide, total measurement (moles/volume) Serum or plasma carbon dioxide, total measurement (moles/volume) 27 22 - 29 08/07/2017 [facility] Serum or plasma chloride measurement (moles/volume) Serum or plasma chloride measurement (moles/volume) 102 98 - 107 08/07/2017 [facility] Serum or plasma creatine kinase MB measurement (mass/volume) Serum or plasma creatine kinase MB measurement (mass/volume) 1.20 0 - 5.0 08/07/2017 [facility] Serum or plasma creatine kinase measurement (enzymatic activity/volume) Serum or plasma creatine kinase measurement (enzymatic activity/volume) 162 29 - 168 08/07/2017 [facility] Serum or plasma creatinine measurement (mass/volume) Serum or plasma creatinine measurement (mass/volume) 0.81 0.57 - 1.11 08/07/2017 [facility] Serum or plasma potassium measurement (moles/volume) Serum or plasma potassium measurement (moles/volume) 4.0 3.5 - 5.1 08/07/2017 [facility] Serum or plasma protein measurement (mass/volume) Serum or plasma protein measurement (mass/volume) 7.4 6.5 - 8.1 08/07/2017 [facility] Serum or plasma sodium measurement (moles/volume) Serum or plasma sodium measurement (moles/volume) 140 136 - 145 08/07/2017 [facility] Serum or plasma total bilirubin measurement (mass/volume) Serum or plasma total bilirubin measurement (mass/volume) null 0.2 - 1.2 08/07/2017 [facility] Serum or plasma urea nitrogen measurement (mass/volume) Serum or plasma urea nitrogen measurement (mass/volume) 16 7 - 26 08/07/2017 [facility] Serum or plasma urea nitrogen/creatinine mass ratio Serum or plasma urea nitrogen/creatinine mass ratio 20 6 - 25 08/07/2017 [facility] Troponin I measurement by highly sensitive enzyme immunoassay Troponin I measurement by highly sensitive enzyme immunoassay null 0 - 0.300 08/07/2017 [facility] Red Cell Distribution Width 12.3 11.7 - 14.4 08/07/2017 [facility] IM GRANULOCYTES % 0.2 0.0 - 1.0 08/07/2017 [facility] Absolute Immature Granulocyte (auto 0.01 0 - 0.1 08/07/2017 [facility] Aspartate Amino Transf (AST/SGOT) 22 5 - 34 08/07/2017 [facility] Vital Signs Vital Sign Value Date Comments Source Encounters Location Location Details Encounter Type Encounter Number Reason For Visit Attending Provider ADM Date DC Date Status Source Departed Emergency Room [id number] NANCY MCKINNEY MD 08/07/2017 08/08/2017 [facility] Procedures Procedure Code Date Perfomer Comments Source Computed tomography of brain without radiopaque contrast [id number] 08/07/2017 [facility]
[2018-12-11] MEDS ORDERED: NALOXONE HCL INJ 0.4 MG/ML AMP IV PRN (14:15)
--- NOTE | 2018-12-11 14:36 | Diagnostic Imaging Report ---
Exam: Head CT without contrast History: Possible stroke, slurred speech Comparison studies: Head CT 08/07/2017 and brain MRI 12/06/2011. Technique: Axial images were obtained from the skull base to the vertex. Coronal and sagittal images reconstructed from the axial data. Dose modulation, iterative reconstruction, and/or weight based adjustment of the mA/kV was utilized to reduce the radiation dose to as low as reasonably achievable. Radiation dose: Total DLP: 921 mGy*cm. Estimated effective dose: DLP x 0.015 Intravenous contrast: None Findings: Scalp: No abnormalities. Bones: No fractures. No destructive lytic or blastic lesions. Brain sulci: The prominent. Ventricles: Mild compensatory dilatation. No hydrocephalus. Extra-axial spaces: No masses, no fluid collection. Parenchyma: No mass, acute hemorrhage or acute cortical insults. Scattered ill-defined hypodensities in the supratentorial white matter are nonspecific but most compatible with chronic microvascular ischemic changes. Sellar/suprasellar region: No abnormalities. Craniocervical junction: Patent foramen magnum. No Chiari one malformation. Incidental findings: Atherosclerotic calcifications in the carotid siphons.. IMPRESSION: No acute intracranial abnormalities. No changes from the prior head CT of 08/07/2017. Chronic findings: 1. Mild generalized volume loss. 2. Moderate supratentorial chronic microvascular ischemic changes. Signed by: Dr. Bradley Byrd M.D. on 12/11/2018 2:32 PM
[2018-12-11 15:21] LABS: BASOPHILS % 0.7 % (0.0-1.0); EOSINOPHILS # (AUTO) 0.1 (0.0-0.4); EOSINOPHILS % 1.2 % (0.0-6.0); HEMATOCRIT 37.7 % (34.2-44.1); HEMOGLOBIN 12.3 g/dL (12.0-16.0); LYMPHOCYTES # (AUTO) 0.9 (1.0-3.2); MEAN CORPUSCULAR HEMOGLOBIN 32.8 pg (28-32); MEAN CORPUSCULAR HGB CONC 32.6 g/dL (31-35); MEAN CORPUSCULAR VOLUME 100.5 fL (81-99); MONOCYTES # (AUTO) 0.3 (0.2-0.8); MONOCYTES % 7.2 % (4.4-11.3); NEUTROPHILS % 69.7 % (38.7-80.0); PLATELET COUNT 211 x10e3/uL (140-360); RED BLOOD COUNT 3.75 x10e6/uL (3.6-5.1); RED CELL DISTRIBUTION WIDTH 12.4 % (11.7-14.4)
[2018-12-11 15:26] LABS: AMPHETAMINES SCREEN,URINE NEGATIVE (NEGATIVE); BENZODIAZEPINES SCREEN,URINE POSITIVE (NEGATIVE); PHENCYCLIDINE SCREEN,URINE NEGATIVE (NEGATIVE)
[2018-12-11 15:41] LABS: ALANINE AMINOTRANSFERASE 17 IU/L (0-55); ALBUMIN 3.8 g/dL (3.5-5.0); ALBUMIN/GLOBULIN RATIO 1.6 (0.8-2.0); ALKALINE PHOSPHATASE 98 IU/L (40-150); ANION GAP 13.3 mmol/L (8-16); BLOOD UREA NITROGEN 12 mg/dL (7-26); BUN/CREATININE RATIO 15 (6-25); CALCIUM 9.1 mg/dL (8.4-10.2); CARBON DIOXIDE 28 mmol/L (22-29); CHLORIDE 106 mmol/L (98-107); CREATINE KINASE 57 IU/L (29-168); CREATININE, SERUM 0.78 mg/dL (0.57-1.11); EST GLOMERULAR FILTRATION RATE > 60 ML/MIN (60-); GLUCOSE 74 mg/dL (74-118); POTASSIUM 3.3 mmol/L (3.5-5.1); SODIUM 144 mmol/L (136-145)
[2018-12-11 16:05] VITALS: BP 133/65
== END 2018-12-11 16:10 | disposition home or self-care (01) ==
LOC: ER 13:26
DX: R41.82 Altered mental status, unspecified (principal); T42.4X5A Adverse effect of benzodiazepines, initial encounter; T43.295A Adverse effect of other antidepressants, initial encounter; K21.9 Gastro-esophageal reflux disease without esophagitis; Z85.3 Personal history of malignant neoplasm of breast; Z85.41 Personal history of malignant neoplasm of cervix uteri
CPT/HCPCS: 36415; 70450; 80053; 80307; 82550; 82553; 84484; 85025; 99284; J2310

== ENCOUNTER 2020-04-30 20:04 | Emergency (ER) | payer MEDICARE, OTHER ==
[~2020-04-30] VITALS: Ht 160 cm; Wt 56.2 kg
--- NOTE | 2020-04-30 20:04 | NUR ---
pt arrived c foreign body in throat. md able to visualize object. large piece of chicken removed by md with forceps. pt anxious p foreigh body removal, but states that feels better.
--- NOTE | 2020-04-30 20:27 | Emergency Department Note ---
History of Present Illnes History of Present Illness Chief Complaint: Eye, Ear, Nose, Throat, Dental History of Present Illness This is a 69 year old female with food bolus in throat. Low oxygen level prior to arrival. Patient in obvious respiratory distress with airway obstruction Historian: Patient, Flight Information Expediter/EMS Arrival Mode: Car Onset (how long ago): second(s) Location: throat Radiation: Reports non-radiation Severity: severe Onset quality: sudden Duration (how long): hour(s) Timing of current episode: constant Progression: worsening Chronicity: new Exacerbating factors: eating Associated symptoms: Reports shortness of breath Treatments prior to arrival: none Past Medical/Family History Physician Review I have reviewed the patient's past medical and family history. Any updates have been documented here. Past Medical History Recent Fever: No Clinical Suspicion of Infectio: No New/Unexplained Change in Ment: No Other Medical History: RT BREAST CA CERVICAL CA GERD BIPOLAR DEPRESSION TORN ROTATOR CUFF Other Surgery: B/L BREAST SURGERY Social History Smoking Cessation: Never Smoker Counseling Performed: No Alcohol Use: Occasional Any Illegal Drug Use: No Physically hurt or threatened: No Other Any Pre-Existing Lines (PICC,: No Review of Systems Review of Systems Constitutional: Reports no symptoms EENTM: Reports no symptoms Cardiovascular: Reports no symptoms Respiratory: Reports dyspnea Gastrointestinal: Reports no symptoms Genitourinary: Reports no symptoms Musculoskeletal: Reports no symptoms Integumentary: Reports no symptoms Neurological: Reports no symptoms Psychological: Reports no symptoms Endocrine: Reports no symptoms Hematological/Lymphatic: Reports no symptoms Physical Exam Related Data Allergies: Coded Allergies: Penicillins (Verified Allergy, Mild, 11/22/06) Sulfa (Sulfonamide Antibiotics) (Verified Allergy, Mild, 11/22/06) iodine (Verified Allergy, Mild, 11/22/06) codeine (Verified Allergy, Unknown, 08/08/17) Uncoded Allergies: MYCIN (Allergy, Unknown, 08/08/17) Triage Vital Signs Vital Signs Date Time Temp Pulse Resp B/P (MAP) Pulse Ox O2 Delivery O2 Flow Rate FiO2 04/30/20 20:17 98.6 123 26 136/75 100 04/30/20 20:20 Nasal Cannula 4.0 Vital signs reviewed: Yes Physical Exam CONSTITUTIONAL Constitutional: Present distressed HENT HENT: Present normocephalic, Present atraumatic, Present oropharynx clear/moist, Present nose normal, Present other (obvious food bolus in posterior pharyngeal region) HENT L/R: Present left ext ear normal, Present right ext ear normal EYES Eyes: Reports PERRL, Reports conjunctivae normal NECK Neck: Present ROM normal PULMONARY Pulmonary: Present respiratory distress CARDIOVASCULAR Cardiovascular: Present regular rhythm, Present heart sounds normal, Present capillary refill normal, Present normal rate GASTROINTESTINAL Abdominal: Present soft, Present nontender, Present bowel sounds normal GENITOURINARY Genitourinary: Present exam deferred SKIN Skin: Present warm, Present dry MUSCULOSKELETAL Musculoskeletal: Present ROM normal NEUROLOGICAL Neurological: Present alert, Present oriented x 3, Present no gross motor or sensory deficits PSYCHOLOGICAL Psychological: Present mood/affect normal, Present judgement normal Procedures Foreign Body Time out performed: No Site: other (posterior pharynx) Description: other (Food bolus LARGE) Sedation/analgesia: none Technique: manual removal Confirmed by: direct visualization Complications: none Post procedure exame: awake, alert Additional comments Airway obstruction removed. Critical Care Time Total Critical Care Time (min): 31 Critcal care necessary due to: respiratory failure Critcal care time spent by me: develop tx plan w patient/surrogate, examination of patient, obtaining hx from patient/surrogate, order/perform tx or interventions Assessment & Plan Medical Decision Making MDM Diff Dx : airway obstruction, respiratory failure Assessment & Plan Final Impression: (1) Airway obstruction due to foreign body (2) Hypoxia Depart Disposition: HOME, SELF-CARE Last Vital Signs Date Time Temp Pulse Resp B/P (MAP) Pulse Ox O2 Delivery O2 Flow Rate FiO2 04/30/20 20:20 113 22 123/71 94 Nasal Cannula 4.0 04/30/20 20:17 98.6 Home Meds Reported Medications Anastrozole (ANASTROZOLE) 1 Mg Tablet, 1 MG PO HS 09/13/17 Ziprasidone (GEODON) 20 Mg Cap, 120 MG PO HS 09/13/17 [Lamorgine] No Conflict Check, 300 MG PO HS 09/03/17 Duloxetine Hcl (CYMBALTA) 20 Mg Capcr, 60 MG PO HS, #30 CAP 09/03/17 Atorvastatin Calcium (LIPITOR) 20 Mg Tablet, 20 MG PO DAILY, #30 TAB 09/03/17 Diazepam (DIAZEPAM) 5 Mg Tablet, 10 MG PO HS, #30 TAB 09/03/17 Clonazepam (CLONAZEPAM) 0.5 Mg Tablet, 2 MG PO HS, TAB 09/03/17 Omeprazole (OMEPRAZOLE) 40 Mg Capsule.dr, 40 MG PO HS 09/03/17 [Lisinopril] Unknown Strength No Conflict Check, 10 MG PO HS 09/03/17 Medications in the ED Glucagon 1 mg ONCE ONCE IV ; Start 04/30/20 at 21:00; Stop 04/30/20 at 20:53; Status DC Glucagon 1 mg ONCE ONCE IM Last administered on 04/30/20at 20:59; Admin Dose 1 MG; Start 04/30/20 at 21:00; Stop 04/30/20 at 21:01; Status DC MARLA FINK DO Apr 30, 2020 20:27
[2020-04-30] MEDS ORDERED: GLUCAGON FOR INJ 1 MG VIAL IM ONE (21:00)
[2020-04-30] MEDS ORDERED: GLUCAGON FOR INJ 1 MG VIAL IV ONE (21:00)
--- NOTE | 2020-04-30 21:20 | NUR ---
ICE WATER PROVIDED TO PT BY .
--- OUTSIDE RECORDS SUMMARY | 2020-04-30 21:25 | XMS REPORT | Clinical Summary ---
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 Active clonAZEPAM (KlonoPIN) 2 Take 2 mg by 0 MG tablet mouth nightly. Active atorvastatin (LIPITOR) 20 Take 20 mg by 0 MG tablet mouth nightly. Active diazePAM (VALIUM) 10 MG Take 10 mg by 0 tablet mouth daily. 1-2 tabs PRN Active DULoxetine (CYMBALTA) 60 Take 60 mg by 0 MG capsule mouth nightly. Active anastrozole (ARIMIDEX) 1 Take 1 mg by 0 mg chemo tablet mouth nightly. Active ziprasidone (GEODON) 80 160 mg 0 MG capsule nightly. 8 Active lamoTRIgine (LaMICtal) Take 200 mg 0 200 MG tablet by mouth nightly. Active lisinopril nightly. 1 (PRINIVIL,ZESTRIL) 10 mg 8 tablet Active ascorbic acid, vitamin C, Take 1,000 mg 0 (VITAMIN C) 500 MG tablet by mouth daily. Active calcium carbonate-vitamin Take 1 tablet 0 D3 500 mg-200 unit per by mouth 2 tablet (two) times a day with meals. Active LINZESS 145 mcg capsule Take 145 mcg 2 by mouth as 9 needed. Active cyanocobalamin (VITAMIN Take 1,000 0 B-12) 1000 MCG tablet mcg by mouth daily. Active pyridoxine, vitamin B6, Take 100 mg 0 (B-6) 100 MG tablet by mouth daily. Active Problems Problem Noted Date Neuroleptic-induced tardive dyskinesia 03/13/2019 Neuroleptic-induced Parkinsonism 03/13/2019 Essential tremor 03/13/2019 Bipolar affective disorder in remission 03/13/2019 Surgical History Surgery Date Site/Laterality Comments CHOLECYSTECTOMY ~2006 BREAST LUMPECTOMY Right REMOVAL, IMPLANT, BREAST 04/24/2016 Breast/Left Proce dure: REMOVAL, IMPLANT, BREAST; Surgeon: Gilbert Canales MD; Location: [facility] 1 8 OR; Service: Plastics; Laterality: Left; Medical devices from this surgery are i n the Implants section. RECONSTRUCTION, NIPPLE 04/24/2016 Breast/Left Procedu re: RECONSTRUCTION, AREOLAR; Surgeon: JOSE Canales MD; Locatio n: [facility] 18 OR; Service: Plastics; Laterality: Left; Medical devices from this surgery are i n the Implants section. REVISION, RECONSTRUCTION, 04/24/2016 Breast/Right Proc edure: REVISION, RECONSTRUCTION, BREAST; BREAST Surgeon: Gilbert Canales MD; Location: [facility] 18 OR; Service: Plastics; Laterality: Ri ght; Medical devices from this surgery are i n the Implants section. INJECTION, FAT GRAFT 04/24/2016 Right Procedure : INJECTION, FAT GRAFT; Surgeon: Gilbert Canales MD; Location: [facility] 18 OR; Service: Plastics; Laterality: Right; Medical devices from this surgery are i n the Implants section. AUGMENTATION MAMMAPLASTY BREAST BIOPSY REVISION, RECONSTRUCTION, 07/13/2017 Breast/Bilatera Pro cedure: REVISION, RECONSTRUCTION, BREAST; BREAST l Surgeon: Gilbert jaar MD; Location: [facility] 18 OR; Service: Plastics; Laterality: Bi lateral; Medical devices from this surgery are i n the Implants section. REMOVAL, IMPLANT, BREAST 07/13/2017 Breast/Bilatera Proc edure: REMOVAL/ REPLACEMENT, IMPLANT, BREAST; l Surgeon: Gilbert Canales MD; Location: [facility] 18 OR; Service: Plastics; Laterality: Bi lateral; Medical devices from this surgery are i n the Implants section. INJECTION, FAT GRAFT 07/13/2017 Right Procedure : INJECTION, FAT GRAFT, BREASTS; Surgeon: Gilbert Canales MD; Location: [facility] 18 OR; Service: Plastics; Laterality: Ri ght; Medical devices from this surgery are i n the Implants section. 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 REMOVAL, BREAST IMPLANT 10/26/2017 Breast/Right Proced ure: REMOVAL/ REPLACEMENT BREAST IMPLANT MATERIAL MATERIAL; Surgeon: Gilbert Canales MD; Location: [facility] 18 OR; Service: Plastics; Lat erality: Right; Medical devices from this surgery are i n the Implants section. INJECTION, FAT GRAFT 10/26/2017 Right Procedure : INJECTION, FAT GRAFT, BREAST; Surgeon: Gilbert Canales MD; Location: [facility] 1 8 OR; Service: Plastics; Laterality: Right; Medical devices from this surgery are i n the Implants section. REVISION, RECONSTRUCTION, 03/08/2018 Breast/Bilatera Pro cedure: REVISION, RECONSTRUCTION, BREAST W/ BREAST l REMOVAL/ REPLACEMEN T IMPLANT; Surgeon: Gilbert Canales MD; Location: [facility] 18 OR; Service: Plastics; Laterality: Bilateral; Medical devices from this surgery are i n the Implants section. REVISION, SCAR 03/08/2018 Bilateral Procedure: REVI REAL, SCAR, BREAST; Surgeon: Gilbert Canales MD; Location: [facility] 1 8 OR; Service: Plastics; Laterality: Bilater al; Medical devices from this surgery are i n the Implants section. INJECTION, FAT GRAFT 03/08/2018 Bilateral Procedure : INJECTION, FAT GRAFT, TO BILATERAL BREASTS; Surgeon: Gilbert Canales MD; Location: [facility] 18 OR; Service: Plastics; Lat erality: Bilateral; Medical devices from this surgery are i n the Implants section. ROTATOR CUFF REPAIR 01/15/2019 Right at [facility] CAPSULECTOMY, BREAST, 03/27/2019 Breast/Bilatera Procedu re: REMOVAL/ REPLACEMENT BREAST IMPLANT; WITH IMPLANT REMOVAL l Surgeon: Gilbert Canales MD; Location: [facility] 18 OR; Service: Plastics; Laterality: Bi lateral; Medical devices from this surgery are i n the Implants section. INJECTION, FAT GRAFT 03/27/2019 Left Procedure : INJECTION, FAT GRAFT, BREAST; Surgeon: Gilebrt Canales MD; Location: [facility] 18 OR; Service: Plastics; Laterality: Left; Medical devices from this surgery are i n the Implants section. Medical History Medical History Date Comments Hypertension Elevated cholesterol Anesthesia pt SEVERE PONV/nfhap; no ex ercise; able to climb stairs, no current cp/sob; upper left p artial Anxiety Breast cancer (HCC) lumpectomy R breast Breast cancer (HCC) last chemo 2014, tx w/ xrt and herceptin, all teeth secure Bipolar affect, depressed (HCC) on lamictal PONV (postoperative nausea and vomiting) Never exercises could do stairs w/o sob or cp GERD (gastroesophageal reflux disease) Arthritis Examination of blood pressure NO BP RIGHT ARM NO VENIPUNCTURE RIGHT ARM Family History Medical History Relation Name Comments Diabetes Brother Esophageal cancer Father Hypertension Mother Relation Name Status Comments Brother Father Mother Social History Date Tobacco Use Types Packs/Day Years Used Never Smoker Smokeless Tobacco: Never Used Drinks/Week oz/Week Comments Alcohol Use 3 Glasses of wine 3.0 Yes Sex Assigned at Date Recorded Not on file Last Filed Vital Signs Not on file Plan of Treatment Health Maintenance Due Date Last Done Comments COLONOSCOPY SCREENING 10/03/2001 SHINGLES VACCINES (#1) 10/03/2001 65+ PNEUMOCOCCAL VACCINE 10/03/2016 (1 of 1 - PPSV23) BREAST CANCER SCREENING 06/15/2019 06/15/2017, 06/15/2017 INFLUENZA VACCINE 01/17/2020 Implants Device Identifier Shelf Expiration Date Model / Serial / L ot Implanted Type Area Manufactur er 07/28/2020 350 8001BC / [id number] / [id number] Implant Brst Memorygel Mpp Maria Antonia-Fild Plastic or Left: Melissa st RENATAOR [facility] Rnd 800cc - [id number] - [employer] ATIO [id number] Implants N Implanted: Qty: 1 on 10/26/2017 by or Gilbert Mathew MD at [facility] Expanders or Sets 12/13/2022 SCX 800 / [id number] / [id number] Breast Implt Natrelle Inspira Scx Plastic or Left: Breast ALLERGAN 800 - [id number] - [id number] Cosmetic MEDICAL Implanted: Qty: 1 on 03/08/2018 by Implants INC Gilbert Canales MD at [facility] or Tissue Expanders or Sets 07/28/2020 350 8001BC / [id number] / [id number] Implant Brst Memorygel Mpp Maria Antonia-Fild Plastic or Right: Emilie ast RENATAOR Kaitlynn Rnd 800cc - [id number] - Cosmetic [employer] ATIO [id number] Implants N Implanted: Qty: 1 on 03/27/2019 by or Gilbert Mathew MD at [facility] Expanders or Sets 11/18/2023 SCX 800 / [id number] / [id number] Breast Implt Natrelle Inspira Scx Plastic or Left: Breast ALLERGAN 800 - [id number] - [id number] Cosmetic MEDICAL Implanted: Qty: 1 on 03/27/2019 by Implants INC Gilbert Canales MD at [facility] or Tissue Expanders or Sets 12/06/2021 SCF-770 / [id number] / [id number] 770cc Natrelle Inspira Scf Gel Surgical Right: Breast ALLERGAN, Breast Implant, Full Projection Implants - INC. Implanted: Qty: 1 on 07/13/2017 by Gilbert Burgos MD at [facility] 04/23/2022 SCX-750 / [id number] / [id number] 750cc Natrelle Inspira Cohesive Surgical Left: Breast ALLERGAN, Breast Implant Implants - INC. Implanted: Qty: 1 on 07/13/2017 by Gilbert Burgos MD at [facility] [id number] / / Drain Wound Hbls Round Radopaq Surgical N/A: N/ A Trocar Maria Antonia White 0.18in 15fr - Implants; [id number] Expanders; Implanted: Qty: 1 on 04/24/2016 by [employer]; Gilbert Canales MD at [facility] Surgical Wires Results Not on fileafter 04/30/2019 Insurance Type Payer Benefit Subscriber ID Effective Phone Address Plan / Dates Group Medicare MEDICARE MEDICARE [id number] 2010-P MORALES, PART A AND resent [place] B HMO AEJENNIFER ORTIZ [id number] 2016-P HMO,POS,EP resent O, MC/EC Guarantor Name Account Relation to Date of Phone Billin g Address Type Patient Leonardo Adrian Personal/F Self 1950 [phone] [address] (Home) [place] [address] Advance Directives For more information, please contact: [phone] 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
--- OUTSIDE RECORDS SUMMARY | 2020-04-30 21:26 | XMS REPORT | Continuity of Care Document ---
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 Name Role Phone [facility] [employer] Unavailable Un available Problems Problem Status Onset Date Classification Date Reported Comments Source DX; C50.919=MALIGNANT NEOPLASM OF UNSPEC Active 09/24/2019 [facility] LABS AND FOLLOW UP Active 07/02/2019 [facility] DX: R91.8=OTHER NONSPECIFIC ABNORMAL FIN Active 05/26/2019 [facility] LABS AND F/U Active 03/21/2019 [facility] DX: C50.911=MALIGNANT NEOPLASM OF UNSPEC Active 02/24/2019 [facility] RIGHT FEMALE BREAST CANCER FOLLOW UP Active 01/31/2019 [facility] ROUTINE MAMMO Active 11/27/2018 [facility] DX: DYSPHAGIA Active 10/23/2018 [facility] 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 10/10/2018 [facility] RT SHOULDER IMPINGEMENT Active 09/27/2018 [facility] [place] M75.41 - IMPINGEMENT SYNDROME OF RIGHT Active 09/26/2018 [facility] [place] F/U Active 0 07/22/2018 [facility] C50.919 - MALIGNANT NEOPLASM OF UNSP SIT Active 07/05/2018 [facility] Unspecified osteoarthritis, unspecified site 02/26/2018 09/08/2018 [facility] Malignant neoplasm of unspecified site o f right female breast 02/14/2018 08/27/2018 [facility] 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 02/07/2018 08/19/2018 [facility] DX: C50.911 Active 02/01/2018 [facility] BREAST CANCER Active 01/29/2018 [facility] C50.911 - MALIGNANT NEOPLASM OF UNSP SIT Active 01/22/2018 [facility] LABS, FOLLOW UP Active 01/21/2018 [facility] DX: M54.2=CERVICALGIA Active 10/12/2017 [facility] Personal history of malignant neoplasm of cervix uteri 08/30/2017 11/30/2017 [facility] G31.84, R26.2 Active 05/11/2017 [facility] K43.9 - VENTRAL HERNIA WITHOUT OBSTRUC Active 04/20/2017 [facility] 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 Active 04/04/2017 [facility] LABS, F/U Active 12/27/2016 [facility] FOLLOW UP Active 10/23/2016 [facility] Z85.3 - PERSONAL HISTORY OF MALIGNANT N6 Active 08/02/2016 [facility] DX: M23.91=UNSPECIFIED INTERNAL DERANGEM Active 01/31/2016 [facility] N Active 10/2015 [facility] DX: R14.0=ABDOMINAL DISTENSION (GASEOUS) Active 12/07/2015 [facility] C50.919 Active 10/21/2015 [facility] HERCEPTIN Active 07/05/2015 [facility] BREAST CA Active 06/18/2015 [facility] CA Active [facility] * Active 06/2015 [facility] TRASTUZUMAB Active 05/20/2015 [facility] 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 Active 05/17/2015 [facility] MALIGNANT NEOPLASM OF UNSPECIFIED SITE O Active 03/29/2015 [facility] CONSTIPATION, BLOATING SYMTOMS Active 02/11/2015 [facility] FOLLOW-UP Active 11/20/2014 [facility] FOLLOWUP Active 09/25/2014 [facility] 174.9 Active 08/06/2014 [facility] UNDERGOING TX WITH CARDIOTOXIC AGENTS // Active 07/22/2014 [facility] PACLITAXEL HERCEPTIN Active 07/02/2014 [facility] NEUTROPENIC FEVER Active 06/15/2014 [facility] DOXORUBICIN CYTOXAN Active 04/24/2014 [facility] V58.69 ENCOUNTER FOR LONG-TERM (CURRENT) Active 04/09/2014 [facility] DOXORUBICIN CYTOXAN NEULASTA EMEND Active 04/07/2014 [facility] BREAST CA *PT IS ALLERGIC TO IODINE/NOT Active 04/02/2014 [facility] BREAST CANCERR MASS @ 12 O CLOCK Active 03/03/2014 [facility] MASS IN BREAST Active 02/23/2014 [facility] 793.99 - NONSP ABN FIND- 737 - CURVATURE Active 01/13/2014 [facility] [place] Gastroesophageal reflux disease (disorder) Active Problem 03/18/2020 [facility], [facility] [place], [facility] [place], [place],[facility] [place],[facility] Anxiety (finding) Active Problem 03/18/2020 [facility], [facility] [place], [facility] [place], [place],[facility] Malignant tumor of breast (disorder) Resolved Problem 06/2019 left [facility], [facility] [place], [facility] [place], [place],[facility] Breast lump (finding) Active Problem 03/18/2020 [facility], [facility] [place], [facility] [place], [place],[facility] Malignant neoplastic disease (disorder) Active Problem 03/18/2020 [facility], [facility] [place], [facility] [place], [place],[facility] Malignant tumor of cervix (disorder) Resolved Problem 06/2019 [facility], [facility], [facility] [place], [place],[facility] Chemotherapy (procedure) Resol hannah Problem 06/2019 [facility], [facility], [facility] [place], [place], [facility] Constipation (disorder) Active Problem 03/18/2020 [facility], [facility] [place], [facility] [place], [place],[facility] Cough (finding) Active Problem 03/18/2020 [facility], [facility] [place], [facility] [place], [place],[facility] Depression - motion (qualifier value) Resolved Problem 03/18/2020 [facility], [facility], [facility] [place], [place],[facility] [place],[facility] Depressive disorder (disorder) Active Problem 06/2019 [facility], [facility], [facility] [place],[facility] Hypertensive disorder, systemic arterial (disorder) Active Problem 03/18/2020 [facility], [facility], [facility] [place],[facility] Hypercholesterolemia (disorder) Active Problem 06/2019 [facility], [facility], [facility] [place],[facility] Tylectomy (procedure) Resolved Problem 03/18/2020 [facility], [facility], [facility] [place],[facility] Pain of breast (finding) Active Problem 03/18/2020 [facility], [facility], [facility] [place],[facility] Estrogen receptor positive status [ER+] 11/30/2017 [facility] Ventral hernia without obstruction or gangrene 11/30/2017 [facility] Gastro-esophageal reflux disease without esophagitis 11/30/2017 [facility] Major depressive disorder, single episode, unspecified 11/30/2017 [facility] Essential (primary) hypertension 11/30/2017 [facility] Anxiety disorder, unspecified 11/30/2017 [facility] Pain in leg, unspecified 09/08/2018 [facility] Adverse effect of other drugs, medicamen ts and biological substances, initial encounter 09/08/2018 [facility] Mastodynia 09/08/2018 [facility] LAB Active [facility] NEUTROPENIA NEC Active [facility] FEVER NOS Active [facility] UNK Active [facility] RECURRING LABS Active [facility] LABS Active [facility] MALIGN NEOPL BREAST NOS Active [facility] STANDING ORDER Active [facility] BREAST CANCER' Active [facility] I74.9 Active [facility] ABDOMINAL DISTENSION (GASEOUS) Active [facility] UNSPECIFIED INTERNAL DERANGEMENT OF RIGH Active [facility] MALIG NEOPLM OF UPPER-OUTER QUADRANT OF Active [facility] NUTRITIONAL DEFICIENCY, UNSPECIFIED Active [facility] EMBOLISM AND THROMBOSIS OF ARTERIES OF E Active [facility] DYSPHAGIA, UNSPECIFIED Active [facility] IMPINGEMENT SYNDROME OF RIGHT SHOULDER Active [facility] Medications Medication Details Route Status Patient Instructions Ordering Provider Order Date Source Dotarem 376.9 mg /mL (0.5 mmol/mL) intravenous solutio n /= 40 mL/min, Start date: 11/13/18 12:42:00 CDT, Stop date: 11/13/18 12:42:00 CDT No Longer Active 11/13/2018 [facility] Mirtazapine 15 MG Oral Tablet [Remeron] 15 mg = 1 tab, PO, Bedtime, # 30 tab, 3 Refill(s), called to pharmacy Active 08/02/2018 [facility] anastrozole 1 mg oral tablet 1 mg = 1 tab, PO, Daily, # 90 tab, 4 Refill(s), Pharmacy: [facility] [place] [facility]3 Active 07/22/2018 [facility] anastrozole 1 mg oral tablet 1 mg = 1 tab, PO, Daily, # 30 tab, 6 Refill(s), Pharmacy: [facility] [place] #3 Inactive 07/22/2018 [facility] anastrozole 1 mg oral tablet 1 mg = 1 tab, PO, Daily, # 90 tab, 4 Refill(s), Pharmacy: [facility] [place] #3 No Longer Active 01/21/2018 [facility] anastrozole 1 mg oral tablet 1 mg = 1 tab, PO, Daily, # 90 tab, 4 Refill(s), Pharmacy: [facility] [place] #3 Active 12/27/2016 [facility] Cymbalta PO, 0 Refill(s) Active 12/27/2016 [facility] nter Tamoxifen PO, 0 Refill(s) Inactive 12/27/2016 [facility] nter letrozole 2.5 mg oral tablet 2 .5 mg = 1 tab, PO, Daily, # 90 tab, 4 Refill(s), Pharmacy: [facility] [place] #3 Active 08/13/2015 [facility] trastuzumab 348 mg + Overfill Diluent Es timated 25 mL + Sodium Chloride 0.9% IV 250 mL Notes: CHEMOTHERAPY; Infuse entire lety nts for full dose Inactive 07/23/2015 [facility] trastuzumab + Sodium Chloride 0.9% IV 250 mL Notes: CHEMOTHERAPY; Infuse entire contents for full dose Inactive 07/02/2015 [facility] letrozole 2.5 mg oral tablet 2 .5 mg = 1 tab, PO, Daily, # 90 tab, 6 Refill(s), Pharmacy: [facility] [place] #3 Active 07/02/2015 [facility] alteplase Notes: "Syringe for catheter clearance or interventional radiology use. Reconstitute each vial of Cathflo Activase with 2.2 ml Sterile Water resulting in a 1 mg/ml solution. Stable for 8 hours only. (Same as: Activase) MEDICATION WASTE Product Size: 2 mg Product Wasted: ___ mg Active 06/09/2015 [facility] sterile water 2.2 mL, Route: M ISC, Drug Form: INJ, PRN, PRN See Nurse's Notes, Start date: 06/09/15 13:25:00, Duration: 30 day, Stop date: 07/09/15 13:24:00 Active 06/09/2015 [facility] heparin flush Notes: (Same as: Heparin Lock Flush) Active 06/09/2015 [facility] lidocaine-prilocaine topical N otes: Apply to desired area 2 hrs prior to needle insertion. (Same as: Emla) Active 06/09/2015 [facility] trastuzumab + Sodium Chloride 0.9% IV 250 mL Notes: CHEMOTHERAPY; Infuse entire contents for full dose Inactive 06/09/2015 [facility] trastuzumab + Sodium Chloride 0.9% IV 250 mL Notes: CHEMOTHERAPY; Infuse entire contents for full dose Inactive 05/19/2015 [facility] trastuzumab + Sodium Chloride 0.9% IV 250 mL Notes: CHEMOTHERAPY; Infuse entire contents for full dose Inactive 03/24/2015 [facility] trastuzumab + Sodium Chloride 0.9% IV 250 mL Notes: CHEMOTHERAPY; Infuse entire contents for full dose Inactive 03/05/2015 [facility] trastuzumab + Sodium Chloride 0.9% IV 250 mL Notes: CHEMOTHERAPY; Infuse entire contents for full dose Inactive 02/12/2015 [facility] trastuzumab + Sodium Chloride 0.9% IV 250 mL Notes: CHEMOTHERAPY; Infuse entire contents for full dose Inactive 01/22/2015 [facility] benzonatate 100 MG Oral Capsule [Holly Hays] 100 mg = 1 cap, PO, TID, # 40 cap, 1 Refill(s), Pharmacy: [facility] [place] #3 Inactive 01/19/2015 [facility] Levofloxacin 500 MG Oral Tablet [Levaquin] 500 mg = 1 tab, PO, Q24H, X 10 day, # 10 tab, 0 Refill(s), Pharmacy: [facility] [place] #3 Active 01/19/2015 [facility] trastuzumab + Sodium Chloride 0.9% IV 250 mL Notes: CHEMOTHERAPY; Infuse entire contents for full dose Inactive 01/01/2015 [facility] trastuzumab + Sodium Chloride 0.9% IV 250 mL Notes: CHEMOTHERAPY; Infuse entire contents for full dose Inactive 12/11/2014 [facility] letrozole 2.5 mg oral tablet 2 .5 mg = 1 tab, PO, Daily, # 30 tab, 5 Refill(s), Pharmacy: [facility] [place] #3 Active 11/20/2014 [facility] trastuzumab + Sodium Chloride 0.9% IV 250 mL Notes: CHEMOTHERAPY; Infuse entire contents for full dose Inactive 11/20/2014 [facility] trastuzumab + Sodium Chloride 0.9% IV 250 mL Notes: CHEMOTHERAPY; Infuse entire contents for full dose Inactive 10/30/2014 [facility] trastuzumab + Sodium Chloride 0.9% IV 250 mL Notes: CHEMOTHERAPY; Infuse entire contents for full dose Inactive 10/09/2014 [facility] PACLitaxel + Sodium Chloride 0.9% IV 250 mL Notes: Use non-PVC bag and tubing set for administration. Administer with a 0.22 micron in-line filter. CHEMOTHERAPY; Infuse entire contents for full dose (Same as: Taxol) Inactive 10/02/2014 [facility] trastuzumab + Sodium Chloride 0.9% IV 250 mL Notes: CHEMOTHERAPY; Infuse entire contents for full dose Inactive 10/02/2014 [facility] Pepcid Notes: (Same as: Pepcid ) Can be dilute in 5-10cc NS IVP: Slow IV push over at least 2 minutes. Inactive 10/02/2014 [facility] ntgrey Benadryl Notes: (Same as: Elena dryl) Inactive 10/02/2014 [facility] dexamethasone + Sodium Chloride 0.9% IV 50 mL 10 mg, 2.5 mL, Route: IVPB, Drug form: INJ, ONCALL, Start date: 10/02/14 7:00:00, Duration: 1 doses or times, Stop date: 10/02/14 19:00:00 Inactive 10/02/2014 [facility] Ativan Notes: (Same as: Ativan) No Longer Active 10/02/2014 [facility] magnesium sulfate 1 gm, 100 mL , Route: IVPB, Drug form: INJ, On Adm, Start date: 09/25/14 11:00:00, Duration: 1 doses or times, Stop date: 09/25/14 21:00:00 Inactive 09/25/2014 [facility] nter trastuzumab + Sodium Chloride 0.9% IV 250 mL Notes: CHEMOTHERAPY; Infuse entire contents for full dose Inactive 09/25/2014 [facility] PACLitaxel + Sodium Chloride 0.9% IV 250 mL Notes: Use non-PVC bag and tubing set for administration. Administer with a 0.22 micron in-line filter. CHEMOTHERAPY; Infuse entire contents for full dose (Same as: Taxol) Inactive 09/25/2014 [facility] Ativan Notes: (Same as: Ativan) No Longer Active 09/25/2014 [facility] Pepcid Notes: (Same as: Pepcid ) Can be dilute in 5-10cc NS IVP: Slow IV push over at least 2 minutes. Inactive 09/25/2014 [facility] nter Benadryl Notes: (Same as: Elena dryl) Inactive 09/25/2014 [facility] dexamethasone + Sodium Chloride 0.9% IV 50 mL 10 mg, 2.5 mL, Route: IVPB, Drug form: INJ, ONCALL, Start date: 09/25/14 7:00:00, Duration: 1 doses or times, Stop date: 09/25/14 21:00:00 Inactive 09/25/2014 [facility] Ativan Notes: (Same as: Ativan) Inactive 09/18/2014 [facility] Pepcid Notes: (Same as: Pepcid ) Can be dilute in 5-10cc NS IVP: Slow IV push over at least 2 minutes. Inactive 09/18/2014 [facility] nter PACLitaxel + Sodium Chloride 0.9% IV 250 mL Notes: Use non-PVC bag and tubing set for administration. Administer with a 0.22 micron in-line filter. CHEMOTHERAPY; Infuse entire contents for full dose (Same as: Taxol) Inactive 09/18/2014 [facility] Benadryl Notes: (Same as: Elena dryl) Inactive 09/18/2014 [facility] dexamethasone + Sodium Chloride 0.9% IV 50 mL 10 mg, 2.5 mL, Route: IVPB, Drug form: INJ, ONCALL, Start date: 09/18/14 7:00:00, Duration: 1 doses or times, Stop date: 09/18/14 19:00:00 Inactive 09/18/2014 [facility] trastuzumab + Sodium Chloride 0.9% IV 250 mL Notes: CHEMOTHERAPY; Infuse entire contents for full dose Inactive 09/18/2014 [facility] Pepcid Notes: (Same as: Pepcid ) Can be dilute in 5-10cc NS IVP: Slow IV push over at least 2 minutes. Inactive 09/11/2014 [facility] nter Benadryl Notes: (Same as: Elena dryl) Inactive 09/11/2014 [facility] dexamethasone + Sodium Chloride 0.9% IV 50 mL 10 mg, 1 mL, Route: IV, On Adm, Start date: 09/11/14 7:00:00, Duration: 1 doses or times, Stop date: 09/11/14 21:00:00 Inactive 09/11/2014 [facility] nter trastuzumab + Sodium Chloride 0.9% IV 250 mL Notes: CHEMOTHERAPY; Infuse entire contents for full dose Inactive 09/11/2014 [facility] PACLitaxel + Sodium Chloride 0.9% IV 250 mL Notes: Use non-PVC bag and tubing set for administration. Administer with a 0.22 micron in-line filter. CHEMOTHERAPY; Infuse entire contents for full dose (Same as: Taxol) Inactive 09/11/2014 [facility] Ativan Notes: (Same as: Ativan) Inactive 09/11/2014 [facility] trastuzumab + Sodium Chloride 0.9% IV 250 mL Notes: CHEMOTHERAPY; Infuse entire contents for full dose Inactive 09/04/2014 [facility] PACLitaxel + Sodium Chloride 0.9% IV 250 mL Notes: Use non-PVC bag and tubing set for administration. Administer with a 0.22 micron in-line filter. CHEMOTHERAPY; Infuse entire contents for full dose (Same as: Taxol) Inactive 09/04/2014 [facility] Ativan Notes: (Same as: Ativan) Inactive 09/04/2014 [facility] Pepcid Notes: (Same as: Pepcid ) Can be dilute in 5-10cc NS IVP: Slow IV push over at least 2 minutes. Inactive 09/04/2014 [facility] Benadryl Notes: (Same as: [place] dryl) Inactive 09/04/2014 [facility] dexamethasone + Sodium Chloride 0.9% IV 50 mL 10 mg, 1 mL, Route: IV, On Adm, Start date: 09/04/14 7:00:00, Duration: 1 doses or times, Stop date: 09/04/14 20:00:00 Inactive 09/04/2014 [facility] nter trastuzumab + Sodium Chloride 0.9% IV 250 mL Notes: CHEMOTHERAPY; Infuse entire contents for full dose Inactive 08/28/2014 [facility] PACLitaxel + Sodium Chloride 0.9% IV 250 mL Notes: Use non-PVC bag and tubing set for administration. Administer with a 0.22 micron in-line filter. CHEMOTHERAPY; Infuse entire contents for full dose (Same as: Taxol) Inactive 08/28/2014 [facility] Pepcid Notes: (Same as: Pepcid ) Can be dilute in 5-10cc NS IVP: Slow IV push over at least 2 minutes. Inactive 08/28/2014 [facility] nter Benadryl Notes: (Same as: [place] dryl) Inactive 08/28/2014 [facility] dexamethasone + Sodium Chloride 0.9% IV 50 mL 10 mg, 1 mL, Route: IV, On Adm, Start date: 08/28/14 7:00:00, Duration: 1 doses or times, Stop date: 08/28/14 21:00:00 Inactive 08/28/2014 [facility] nter Ativan Notes: (Same as: Ativan) Inactive 08/28/2014 [facility] trastuzumab + Sodium Chloride 0.9% IV 250 mL Notes: CHEMOTHERAPY; Infuse entire contents for full dose Inactive 08/21/2014 [facility] PACLitaxel + Sodium Chloride 0.9% IV 250 mL Notes: Use non-PVC bag and tubing set for administration. Administer with a 0.22 micron in-line filter. CHEMOTHERAPY; Infuse entire contents for full dose (Same as: Taxol) Inactive 08/21/2014 [facility] Ativan Notes: (Same as: Ativan) Inactive 08/21/2014 [facility] Pepcid Notes: (Same as: Pepcid ) Can be dilute in 5-10cc NS IVP: Slow IV push over at least 2 minutes. Inactive 08/21/2014 [facility] nter Benadryl Notes: (Same as: Elena dryl) Inactive 08/21/2014 [facility] dexamethasone + Sodium Chloride 0.9% IV 50 mL 10 mg, 1 mL, Route: IV, On Adm, Start date: 08/21/14 7:00:00, Duration: 1 doses or times, Stop date: 08/21/14 21:00:00 Inactive 08/21/2014 [facility] cary Filgrastim 0.3 MG/ML Injectable Solution [Neupogen] Special Instructions: Start 24 hours after chemotherapy 3 days a week (weekly chemotherapy) Active 08/17/2014 [facility] trastuzumab + Sodium Chloride 0.9% IV 250 mL Notes: CHEMOTHERAPY; Infuse entire contents for full dose Inactive 08/14/2014 [facility] PACLitaxel + Sodium Chloride 0.9% IV 250 mL Notes: Use non-PVC bag and tubing set for administration. Administer with a 0.22 micron in-line filter. CHEMOTHERAPY; Infuse entire contents for full dose (Same as: Taxol) Inactive 08/14/2014 [facility] Ativan Notes: (Same as: Ativan) Inactive 08/14/2014 [facility] Pepcid Notes: (Same as: Pepcid ) Can be dilute in 5-10cc NS IVP: Slow IV push over at least 2 minutes. Inactive 08/14/2014 [facility] nter Benadryl Notes: (Same as: Elena dryl) Inactive 08/14/2014 [facility] dexamethasone + Sodium Chloride 0.9% IV 50 mL 10 mg, 1 mL, Route: IV, On Adm, Start date: 08/14/14 7:00:00, Duration: 1 doses or times, Stop date: 08/14/14 21:00:00 Inactive 08/14/2014 [facility] nter heparin flush Notes: (Same as: Heparin Lock Flush) No Longer Active 08/13/2014 [facility] sterile water 20 mL, Route: AL SC, Drug Form: INJ, PRN, PRN See Nurse's Notes, Start date: 08/13/14 8:01:00, Duration: 30 day, Stop date: 09/12/14 9:00:00 No Longer Active 08/13/2014 [facility] nt lidocaine-prilocaine topical N otes: Apply to desired area 2 hrs prior to needle insertion. (Same as: Emla) No Longer Active 08/13/2014 [facility] alteplase Notes: "Syringe for catheter clearance or interventional radiology use. Reconstitute each vial of Cathflo Activase with 2.2ml Sterile Water resulting in a 1mg/ml solution. "Withdraw with a 5 micron filter needle." Stable for 8 hours only. (Same as: Activase) No Longer Active 08/13/2014 [facility] heparin flush Notes: (Same as: Heparin Lock Flush) Inactive 08/07/2014 [facility] sterile water 20 mL, Route: AL SC, Drug Form: INJ, On Adm, Start date: 08/07/14 13:19:00, Duration: 1 doses or times, Stop date: 08/07/14 21:00:00 No Longer Active 08/07/2014 [facility] nter alteplase Notes: "Syringe for catheter clearance or interventional radiology use. Reconstitute each vial of Cathflo Activase with 2.2ml Sterile Water resulting in a 1mg/ml solution. "Withdraw with a 5 micron filter needle." Stable for 8 hours only. (Same as: Activase) No Longer Active 08/07/2014 [facility] lidocaine-prilocaine topical N otes: Apply to desired area 2 hrs prior to needle insertion. (Same as: Emla) No Longer Active 08/07/2014 [facility] famotidine 10 mg/mL intravenous solution 20 mg = 2 mL, IVP, On Adm, 0 Refill(s) Activ e 08/07/2014 [facility] diphenhydrAMINE 50 mg/mL injectable solution 25 mg = 0.5 mL, IVP, On Adm, 0 Refill(s) Active 08/07/2014 [facility] nt dexamethasone + Sodium Chloride 0.9% IV 50 mL 10 mg, 1 mL, Route: IV, On Adm, Start date: 08/07/14 7:00:00, Duration: 1 doses or times, Stop date: 08/07/14 21:00:00 Inactive 08/07/2014 [facility] ntgrey trastuzumab + Sodium Chloride 0.9% IV 250 mL Notes: CHEMOTHERAPY; Infuse entire contents for full dose Inactive 08/07/2014 [facility] PACLitaxel + Sodium Chloride 0.9% IV 250 mL Notes: Use non-PVC bag and tubing set for administration. Administer with a 0.22 micron in-line filter. CHEMOTHERAPY; Infuse entire contents for full dose (Same as: Taxol) Inactive 08/07/2014 [facility] Pepcid Notes: (Same as: Pepcid ) Can be dilute in 5-10cc NS IVP: Slow IV push over at least 2 minutes. Inactive 08/07/2014 [facility] cary Benadryl Notes: (Same as: Elena dryl) Inactive 08/07/2014 [facility] trastuzumab + Sodium Chloride 0.9% IV 250 mL Notes: CHEMOTHERAPY; Infuse entire contents for full dose Inactive 07/31/2014 [facility] PACLitaxel + Sodium Chloride 0.9% IV 250 mL Notes: Use non-PVC bag and tubing set for administration. Administer with a 0.22 micron in-line filter. CHEMOTHERAPY; Infuse entire contents for full dose (Same as: Taxol) Inactive 07/31/2014 [facility] Pepcid Notes: (Same as: Pepcid ) Can be dilute in 5-10cc NS IVP: Slow IV push over at least 2 minutes. Inactive 07/31/2014 [facility] cary Benadryl Notes: (Same as: [place] dryl) Inactive 07/31/2014 [facility] dexamethasone + Sodium Chloride 0.9% IV 50 mL 10 mg, 1 mL, Route: IV, On Adm, Start date: 07/31/14 7:00:00, Duration: 1 doses or times, Stop date: 07/31/14 21:00:00 Inactive 07/31/2014 [facility] Ce cary Ativan Notes: (Same as: Ativan) Inactive 07/24/2014 [facility] dexamethasone + Sodium Chloride 0.9% IV 50 mL 10 mg, 1 mL, Route: IV, On Adm, Start date: 07/24/14 7:00:00, Duration: 1 doses or times, Stop date: 07/24/14 19:00:00 Inactive 07/24/2014 [facility] nter trastuzumab + Sodium Chloride 0.9% IV 250 mL Notes: CHEMOTHERAPY; Infuse entire contents for full dose Inactive 07/24/2014 [facility] PACLitaxel + Sodium Chloride 0.9% IV 250 mL Notes: Use non-PVC bag and tubing set for administration. Administer with a 0.22 micron in-line filter. CHEMOTHERAPY; Infuse entire contents for full dose (Same as: Taxol) Inactive 07/24/2014 [facility] Pepcid Notes: (Same as: Pepcid ) Can be dilute in 5-10cc NS IVP: Slow IV push over at least 2 minutes. Inactive 07/24/2014 [facility] nter Benadryl Notes: (Same as: Elena dryl) Inactive 07/24/2014 [facility] Ativan Notes: (Same as: Ativan) Inactive 07/17/2014 [facility] Benadryl Notes: (Same as: [place] dryl) Inactive 07/17/2014 [facility] dexamethasone + Sodium Chloride 0.9% IV 50 mL 10 mg, 1 mL, Route: IV, On Adm, Start date: 07/17/14 7:00:00, Duration: 1 doses or times, Stop date: 07/17/14 21:00:00 Inactive 07/17/2014 [facility] nter trastuzumab + Sodium Chloride 0.9% IV 250 mL Notes: CHEMOTHERAPY; Infuse entire contents for full dose Inactive 07/17/2014 [facility] PACLitaxel + Sodium Chloride 0.9% IV 250 mL Notes: Use non-PVC bag and tubing set for administration. Administer with a 0.22 micron in-line filter. CHEMOTHERAPY; Infuse entire contents for full dose (Same as: Taxol) Inactive 07/17/2014 [facility] Pepcid Notes: (Same as: Pepcid ) Can be dilute in 5-10cc NS IVP: Slow IV push over at least 2 minutes. Inactive 07/17/2014 [facility] nter Ativan Notes: (Same as: Ativan) Inactive 07/07/2014 [facility] Benadryl Notes: (Same as: [place] dryl) Inactive 07/07/2014 [facility] Tylenol Notes: Do not exceed 4 gm/day. (Same as: Tylenol) Inactive 07/07/2014 [facility] Ativan Notes: (Same as: Ativan) Inactive 06/26/2014 [facility] fosaprepitant + Sodium Chloride 0.9% IV 250 mL Notes: Same as: Emend Inactive 06/26/2014 [facility] DOXOrubicin + Sodium Chloride 0.9% IV 100 mL Notes: (Same as: Adriamycin) CHEMOTHERAPY; Infuse entire contents for full dose Inactive 06/26/2014 [facility] dexamethasone + Sodium Chloride 0.9% IV 50 mL 12 mg, 3 mL, Route: IVPB, Drug form: INJ, ONCALL, Start date: 06/26/14 7:00:00, Duration: 1 doses or times, Stop date: 06/26/14 21:00:00 Inactive 06/26/2014 [facility] nter cyclophosphamide + Sodium Chloride 0.9% IV 250 mL Notes: CHEMOTHERAPY; Infuse entire contents for full dose Inactive 06/26/2014 [facility] Zofran + Sodium Chloride 0.9% IV 50 mL Notes: (Same as: Zofran) Inactive 06/26/2014 [facility] Notes: (Same as: Ativan) [facility]: [facility]/24/2014 [facility] fosaprepitant + Sodium Chloride 0.9% IV 250 mL Notes: Same as: Emend Inactive 04/24/2014 [facility] dexamethasone + Sodium Chloride 0.9% IV 50 mL 12 mg, 3 mL, Route: IVPB, Drug form: INJ, ONCALL, Start date: 04/24/14 7:00:00, Duration: 1 doses or times, Stop date: 04/24/14 19:00:00 Inactive 04/24/2014 [facility] nter Zofran + Sodium Chloride 0.9% IV 50 mL Notes: (Same as: Zofran) Inactive 04/24/2014 [facility] cyclophosphamide + Sodium Chloride 0.9% IV 250 mL Notes: CHEMOTHERAPY; Infuse entire contents for full dose Inactive 04/24/2014 [facility] DOXOrubicin + Sodium Chloride 0.9% IV 100 mL Notes: (Same as: Adriamycin) CHEMOTHERAPY; Infuse entire contents for full dose Inactive 04/24/2014 [facility] fosaprepitant + Sodium Chloride 0.9% IV 250 mL Notes: Same as: Emend Inactive 04/17/2014 [facility] dexamethasone + Sodium Chloride 0.9% IV 50 mL 12 mg, 3 mL, Route: IVPB, Drug form: INJ, ONCALL, Start date: 04/17/14 7:00:00, Duration: 1 doses or times, Stop date: 04/17/14 19:00:00 Inactive 04/17/2014 [facility] nter Zofran + Sodium Chloride 0.9% IV 50 mL Notes: (Same as: Zofran) Inactive 04/17/2014 [facility] DOXOrubicin + Sodium Chloride 0.9% IV 100 mL Notes: (Same as: Adriamycin) CHEMOTHERAPY; Infuse entire contents for full dose Inactive 04/17/2014 [facility] cyclophosphamide + Sodium Chloride 0.9% IV 250 mL Notes: CHEMOTHERAPY; Infuse entire contents for full dose Inactive 04/17/2014 [facility] ondansetron 8 mg oral tablet S pecial Instructions: Start day after chamotherapy take one twice a day for 3 Active 04/08/2014 [facility] nter predniSONE 50 mg oral tablet S pecial Instructions: 1 tab PO 13 hours, 7 hours, and 1 hour before contrast medium injection Active 03/31/2014 [facility] Diphenhydramine Hydrochloride 25 MG Oral Tablet [Benadryl] Special Instructions: 2 tab PO 1 hour be fore contrast medium injection Active 03/31/2014 [facility] Lidocaine 25 MG/ML / Prilocaine 25 MG/ML Topical Cream [EMLA] Special Instructions: apply on port befo re each treatment Active 03/25/2014 [facility] prochlorperazine 10 mg oral tablet 10 mg = 1 tab, PO, Q6H, Nausea & Vomiting, # 60 tab, 1 Refill(s), Pharmacy: [facility] Active 03/25/2014 [facility] ondansetron 8 mg oral tablet S pecial Instructions: day after chemotherapy twice a day Active 03/25/2014 [facility] nter Asenapine 10 MG Sublingual Tablet [Saphris] 0 Refill(s) Active 02/27/2014 [facility] clonazePAM 2 mg oral tablet 2 mg = 1 tab, PO, BID, 0 Refill(s) Active 02/27/2014 [facility] omeprazole 40 mg oral delayed release capsule 40 mg = 1 cap, PO, Daily, # 30 cap, 0 Refill(s) Active 02/27/2014 [facility] nter atorvastatin 20 mg oral tablet 20 mg = 1 tab, PO, Bedtime, # 30 tab, 0 Refill(s) Active 02/27/2014 [facility] nter diazepam 10 mg oral tablet 10 mg = 1 tab, PO, TID, Anxiety, 0 Refill(s) Active 02/27/2014 [facility] lamotrigine 200 MG Oral Tablet 0 Refill(s) Active 02/27/2014 [facility] lisinopril 10 mg oral tablet 1 0 mg = 1 tab, PO, Daily, # 30 tab, 0 Refill(s) Active 02/27/2014 [facility] Allergies, Adverse Reactions, Alerts Substance Category Reaction Severity Reaction type Status Date Reported Comments Source codeine Assertion Drug allergy Active [facility] E-Mycin<sup>1</sup> Assertion Drug allergy Active all mycins [facility] Iodine,Miscellaneous Routes,granules Assertion Drug aller gy Active [facility] penicillins Assertion Drug allergy Active [facility] sulfa drugs Assertion Drug allergy Active [facility] Immunizations No Data Provided for This Section Results Order Name Results Value Reference Range Date Interpretation Comments Source CHEM PANEL Glucose Lvl 90 70 - 99 02/16/2020 [facility] CHEM PANEL BUN 12 7 - 22 02/16/2020 [facility] CHEM PANEL Creatinine Lvl 0.74 0.50 - 1.40 02/16/2020 [facility] CHEM PANEL Sodium Lvl 141 135 - 145 02/16/2020 [facility] CHEM PANEL Potassium Lvl 4.7 3.5 - 5.1 02/16/2020 Result Comment: Specimen Moderately Hemo lyzed. [facility] CHEM PANEL Chloride Lvl 104 95 - 109 02/16/2020 [facility] CHEM PANEL CO2 29 24 - 32 02/16/2020 [facility] CHEM PANEL Calcium Lvl 8.9 8.5 - 10.5 02/16/2020 [facility] CHEM PANEL Total Protein 6.4 6.4 - 8.4 02/16/2020 [facility] CHEM PANEL Albumin Lvl 3.6 3.5 - 5.0 02/16/2020 [facility] CHEM PANEL ALT 29 0 - 65 02/16/2020 [facility] CHEM PANEL AST 26 0 - 37 02/16/2020 [facility] CHEM PANEL Alk Phos 82 39 - 136 02/16/2020 [facility] CHEM PANEL Bili Total 0.3 0.2 - 1.3 02/16/2020 [facility] CHEM PANEL AGAP 12.7 10.0 - 20.0 02/16/2020 [facility] CHEM PANEL B/C Ratio 16 6 - 25 02/16/2020 [facility] CHEM PANEL Globulin 2.8 2.7 - 4.2 02/16/2020 [facility] CHEM PANEL A/G Ratio 1.3 0.7 - 1.6 02/16/2020 [facility] CHEM PANEL eGFR 84 02/16/2020 Result Comment: The eGFR is calculated using the CKD-EPI formula. In most young, healthy individuals the eGFR will be >90 mL/min/1.73m2. The eGFR declines with age. An eGFR of 60-89 may be normal in some populations, particularly the elderly, for whom the CKD-EPI formula has not been extensively validated. Use of the eGFR is not recommended in the following populations:

Individuals with unstable creatinine concentrations, including patients and those with serious co-morbid conditions.

Patients with extremes in muscle mass or diet.

The data above are obtained from the National Kidney Disease Education Program (NKDEP) which additionally recommends that when the eGFR is used in patients with extremes of body mass index for purposes of drug dosing, the eGFR should be multiplied by the estimated BMI. [facility] CHEM PANEL Vitamin D, 25-OH, Total 5 7 30 - 100 02/16/2020 Result Comment: Vitamin D Status 25-OH Vitamin D:

Deficiency: <20 ng/mL
Insufficiency: 20 - 29 ng/mL
Optimal: > or = 30 ng/mL

For 25-OH Vitamin D testing on patients on
D2-supplementation and patients for whom quantitation
of D2 and D3 fractions is required, the [facility]()
25-OH VIT D, (D2,D3), LC/MS/MS is recommended: order
code 23512 (patients >2yrs).
See Note 1

Note 1

For additional information, please refer to
http://education.ARX/faq/SLQ778
(This link is being provided for informational/
educational purposes only.)

Lab test performed by:
[facility]
[address] [place] [address]
[place] [address]
LUCIANA PERSAUD MD [facility] HEMATOLOGY WBC 6.4 3.7 - 10.4 02/16/2020 [facility] HEMATOLOGY RBC 3.59 4.20 - 5.40 02/16/2020 [facility] HEMATOLOGY Hgb 12.1 12.0 - 16.0 02/16/2020 [facility] HEMATOLOGY Hct 36.4 36.0 - 48.0 02/16/2020 [facility] HEMATOLOGY MCV 101.4 80.0 - 98.0 02/16/2020 [facility] HEMATOLOGY MCH 33.7 27.0 - 31.0 02/16/2020 [facility] HEMATOLOGY MCHC 33.2 32.0 - 36.0 02/16/2020 [facility] HEMATOLOGY RDW 13.8 11.5 - 14.5 02/16/2020 [facility] HEMATOLOGY Platelet 228 133 - 450 02/16/2020 [facility] HEMATOLOGY MPV 8.3 7.4 - 10.4 02/16/2020 [facility] HEMATOLOGY Segs 81.9 45.0 - 75.0 02/16/2020 [facility] HEMATOLOGY Lymphocytes 10.1 20.0 - 40.0 02/16/2020 [facility] HEMATOLOGY Monocytes 7.2 2.0 - 12.0 02/16/2020 [facility] HEMATOLOGY Eosinophils 0.5 0.0 - 4.0 02/16/2020 [facility] HEMATOLOGY Basophils 0.3 0.0 - 1.0 02/16/2020 [facility] HEMATOLOGY Neutrophils # 5.3 1.5 - 8.1 02/16/2020 [facility] HEMATOLOGY Lymphocytes # 0.6 1.0 - 5.5 02/16/2020 [facility] HEMATOLOGY Monocytes # 0.5 0.0 - 0.8 02/16/2020 [facility] HEMATOLOGY Macrocyte 1+ *ABN* (02/16/20 11:05 AM) None Seen 02/16/2020 [facility] TUMOR MARKERS CA 15-3 10 <32 unit/mL 02/16/2020 Result Comment: This test was performed using the Siemens ([employer])
chemiluminescent method. Values obtained from
different assay methods cannot be used
interchangeably. CA 15-3 levels, regardless of
value, should not be interpreted as absolute
evidence of the presence or absence of disease.

Lab test performed by:
[facility]
[address] [place] [address]
[place] [address]
LUCIANA PERSAUD MD [facility] TUMOR MARKERS CA 27 29 17 <38 unit/mL 02/16/2020 Result Comment:
This test was perf ormed using the Siemens
Chemiluminescent method. Values obtained from
different assay methods cannot be used
interchangeably. CA 27.29 levels, regardless of
value, should not be interpreted as absolute
evidence of the presence or absence of disease.

Lab test performed by:
[facility]
[address] [place] [address]
[place] [address]
LUCIANA PERSAUD MD [facility] HEMATOLOGY Sed Rate 6 0 - 20 02/12/2019 [facility] IMMUNOLOGY HIV Ag/Ab 4th Gen Negat kun *NA* (02/12/19 2:26 PM) Negative 02/12/2019 [facility] IMMUNOLOGY JEANETTE Negat kun (02/12/19 2:26 PM) Negative 02/12/2019 [facility] CHEM PANEL Vitamin D, 25-OH, Total 7 3.0 30.0 - 100.0 07/22/2018 [facility] CHEM PANEL eGFR 83 07/22/2018 Result Comment: The eGFR is calculated using the CKD-EPI formula. In most young, healthy individuals the eGFR will be >90 mL/min/1.73m2. The eGFR declines with age. An eGFR of 60-89 may be normal in some populations, particularly the elderly, for whom the CKD-EPI formula has not been extensively validated. Use of the eGFR is not recommended in the following populations:

Individuals with unstable creatinine concentrations, including patients and those with serious co-morbid conditions.

Patients with extremes in muscle mass or diet.

The data above are obtained from the National Kidney Disease Education Program (NKDEP) which additionally recommends that when the eGFR is used in patients with extremes of body mass index for purposes of drug dosing, the eGFR should be multiplied by the estimated BMI. [facility] CHEM PANEL Sodium Lvl 145 135 - 145 07/22/2018 [facility] CHEM PANEL CO2 30 24 - 32 07/22/2018 [facility] CHEM PANEL Potassium Lvl 5.0 3.5 - 5.1 07/22/2018 [facility] CHEM PANEL Chloride Lvl 108 95 - 109 07/22/2018 [facility] CHEM PANEL Glucose Lvl 66 70 - 99 07/22/2018 [facility] CHEM PANEL ALT 24 0 - 65 07/22/2018 [facility] CHEM PANEL Total Protein 6.9 6.4 - 8.4 07/22/2018 [facility] CHEM PANEL Calcium Lvl 9.2 8.5 - 10.5 07/22/2018 [facility] CHEM PANEL Albumin Lvl 3.8 3.5 - 5.0 07/22/2018 [facility] CHEM PANEL BUN 9 7 - 22 07/22/2018 [facility] CHEM PANEL Creatinine Lvl 0.75 0.50 - 1.40 07/22/2018 [facility] CHEM PANEL Bili Total 0.3 0.2 - 1.3 07/22/2018 [facility] CHEM PANEL AST 15 0 - 37 07/22/2018 [facility] CHEM PANEL Alk Phos 121 39 - 136 07/22/2018 [facility] CHEM PANEL A/G Ratio 1.2 0.7 - 1.6 07/22/2018 [facility] CHEM PANEL Globulin 3.1 2.7 - 4.2 07/22/2018 [facility] CHEM PANEL B/C Ratio 12 6 - 25 07/22/2018 [facility] CHEM PANEL AGAP 12.0 10.0 - 20.0 07/22/2018 [facility] HEMATOLOGY Monocytes 9.0 2.0 - 12.0 07/22/2018 [facility] HEMATOLOGY Eosinophils 1.0 0.0 - 4.0 07/22/2018 [facility] HEMATOLOGY Segs 72.8 45.0 - 75.0 07/22/2018 [facility] HEMATOLOGY Monocytes # 0.5 0.0 - 0.8 07/22/2018 [facility] HEMATOLOGY Lymphocytes # 0.9 1.0 - 5.5 07/22/2018 [facility] HEMATOLOGY Basophils 0.7 0.0 - 1.0 07/22/2018 [facility] HEMATOLOGY Eosinophils # 0.1 0.0 - 0.5 07/22/2018 [facility] HEMATOLOGY Lymphocytes 16.5 20.0 - 40.0 07/22/2018 [facility] HEMATOLOGY Neutrophils # 3.9 1.5 - 8.1 07/22/2018 [facility] HEMATOLOGY Platelet 196 133 - 450 07/22/2018 [facility] HEMATOLOGY MPV 8.8 7.4 - 10.4 07/22/2018 [facility] HEMATOLOGY MCHC 32.9 32.0 - 36.0 07/22/2018 [facility] HEMATOLOGY RDW 12.7 11.5 - 14.5 07/22/2018 [facility] HEMATOLOGY Hct 39.8 36.0 - 48.0 07/22/2018 [facility] HEMATOLOGY MCH 32.5 27.0 - 31.0 07/22/2018 [facility] HEMATOLOGY MCV 98.8 80.0 - 98.0 07/22/2018 [facility] HEMATOLOGY WBC 5.3 3.7 - 10.4 07/22/2018 [facility] HEMATOLOGY Hgb 13.1 12.0 - 16.0 07/22/2018 [facility] HEMATOLOGY RBC 4.03 4.20 - 5.40 07/22/2018 [facility] TUMOR MARKERS CA 27 29 19 0 - 40 07/22/2018 [facility] TUMOR MARKERS CA 15-3 9.9 0.0 - 31.0 07/22/2018 [facility] CHEM PANEL eGFR 79 04/11/2016 Result Comment: The eGFR is calculated using the CKD-EPI formula. In most young, healthy individuals the eGFR will be >90 mL/min/1.73m2. The eGFR declines with age. An eGFR of 60-89 may be normal in some populations, particularly the elderly, for whom the CKD-EPI formula has not been extensively validated. Use of the eGFR is not recommended in the following populations:

Individuals with unstable creatinine concentrations, including patients and those with serious co-morbid conditions.

Patients with extremes in muscle mass or diet.

The data above are obtained from the National Kidney Disease Education Program (NKDEP) which additionally recommends that when the eGFR is used in patients with extremes of body mass index for purposes of drug dosing, the eGFR should be multiplied by the estimated BMI. [facility] CHEM PANEL Total Protein 7.2 6.4 - 8.4 04/11/2016 [facility] CHEM PANEL ALT 22 0 - 65 04/11/2016 [facility] CHEM PANEL Albumin Lvl 3.9 3.5 - 5.0 04/11/2016 [facility] CHEM PANEL AST 15 0 - 37 04/11/2016 [facility] CHEM PANEL Alk Phos 130 39 - 136 04/11/2016 [facility] CHEM PANEL Bili Total 0.2 0.2 - 1.3 04/11/2016 [facility] CHEM PANEL Potassium Lvl 3.8 3.5 - 5.1 04/11/2016 [facility] CHEM PANEL Chloride Lvl 103 95 - 109 04/11/2016 [facility] CHEM PANEL CO2 30 24 - 32 04/11/2016 [facility] CHEM PANEL BUN 12 7 - 22 04/11/2016 [facility] CHEM PANEL Calcium Lvl 8.9 8.5 - 10.5 04/11/2016 [facility] CHEM PANEL Glucose Lvl 72 70 - 99 04/11/2016 [facility] CHEM PANEL Creatinine Lvl 0.79 0.50 - 1.40 04/11/2016 [facility] CHEM PANEL Sodium Lvl 140 135 - 145 04/11/2016 [facility] CHEM PANEL B/C Ratio 15 6 - 25 04/11/2016 [facility] CHEM PANEL AGAP 10.8 10.0 - 20.0 04/11/2016 [facility] CHEM PANEL Globulin 3.3 2.7 - 4.2 04/11/2016 [facility] CHEM PANEL A/G Ratio 1.2 0.7 - 1.6 04/11/2016 [facility] CHEM PANEL Vitamin D, 25-OH, Total 5 2 30 - 100 04/11/2016 [facility] HEMATOLOGY Segs-Bands # 2.0 1.5 - 8.1 04/11/2016 [facility] HEMATOLOGY Segs 61.0 45.0 - 75.0 04/11/2016 [facility] HEMATOLOGY Eosinophils 2.4 0.0 - 4.0 04/11/2016 [facility] HEMATOLOGY Basophils 1.0 0.0 - 1.0 04/11/2016 [facility] HEMATOLOGY Monocytes # 0.3 0.0 - 0.8 04/11/2016 [facility] HEMATOLOGY Lymphocytes # 0.9 1.0 - 5.5 04/11/2016 [facility] HEMATOLOGY Eosinophils # 0.1 0.0 - 0.5 04/11/2016 [facility] HEMATOLOGY Monocytes 8.4 2.0 - 12.0 04/11/2016 [facility] HEMATOLOGY Lymphocytes 27.2 20.0 - 40.0 04/11/2016 [facility] HEMATOLOGY MCV 95.0 80.0 - 98.0 04/11/2016 [facility] HEMATOLOGY RDW 13.3 11.5 - 14.5 04/11/2016 [facility] HEMATOLOGY MCHC 33.8 32.0 - 36.0 04/11/2016 [facility] HEMATOLOGY Hct 38.1 36.0 - 48.0 04/11/2016 [facility] HEMATOLOGY MCH 32.1 27.0 - 31.0 04/11/2016 [facility] HEMATOLOGY Platelet 198 133 - 450 04/11/2016 [facility] HEMATOLOGY MPV 9.1 7.4 - 10.4 04/11/2016 [facility] HEMATOLOGY Hgb 12.9 12.0 - 16.0 04/11/2016 [facility] HEMATOLOGY WBC 3.3 3.7 - 10.4 04/11/2016 [facility] HEMATOLOGY RBC 4.01 4.20 - 5.40 04/11/2016 [facility] LIPIDS CHD Risk 3.32 3.90 - 5.80 04/11/2016 [facility] LIPIDS VLDL 37 04/11/2016 [facility] LIPIDS LDL (Calculated) 93 <=99 mg/dL 04/11/2016 [facility] LIPIDS HDL 56 >=61 mg/dL 04/11/2016 [facility] LIPIDS Trig 184 <=149 mg/dL 04/11/2016 [facility] LIPIDS Chol 186 <=199 mg/dL 04/11/2016 [facility] SPECIAL CHEMISTRY Hgb A1C 5.0 <=5.6 % 04/11/2016 [facility] TUMOR MARKERS CA 27 29 24 0 - 40 04/11/2016 [facility] TUMOR MARKERS CA 15-3 6.7 0.0 - 31.0 04/11/2016 [facility] CHEM PANEL Vitamin D, 25-OH, Total 5 8 30 - 100 01/20/2016 [facility] CHEM PANEL eGFR 75 01/20/2016 Result Comment: The eGFR is calculated using the CKD-EPI formula. In most young, healthy individuals the eGFR will be >90 mL/min/1.73m2. The eGFR declines with age. An eGFR of 60-89 may be normal in some populations, particularly the elderly, for whom the CKD-EPI formula has not been extensively validated. Use of the eGFR is not recommended in the following populations:

Individuals with unstable creatinine concentrations, including patients and those with serious co-morbid conditions.

Patients with extremes in muscle mass or diet.

The data above are obtained from the National Kidney Disease Education Program (NKDEP) which additionally recommends that when the eGFR is used in patients with extremes of body mass index for purposes of drug dosing, the eGFR should be multiplied by the estimated BMI. [facility] CHEM PANEL Alk Phos 133 39 - 136 01/20/2016 [facility] CHEM PANEL AST 14 0 - 37 01/20/2016 [facility] CHEM PANEL Albumin Lvl 3.7 3.5 - 5.0 01/20/2016 [facility] CHEM PANEL Total Protein 7.0 6.4 - 8.4 01/20/2016 [facility] CHEM PANEL ALT 23 0 - 65 01/20/2016 [facility] CHEM PANEL Calcium Lvl 8.7 8.5 - 10.5 01/20/2016 [facility] CHEM PANEL Chloride Lvl 104 95 - 109 01/20/2016 [facility] CHEM PANEL CO2 27 24 - 32 01/20/2016 [facility] CHEM PANEL Sodium Lvl 140 135 - 145 01/20/2016 [facility] CHEM PANEL Potassium Lvl 3.7 3.5 - 5.1 01/20/2016 [facility] CHEM PANEL Creatinine Lvl 0.83 0.50 - 1.40 01/20/2016 [facility] CHEM PANEL BUN 11 7 - 22 01/20/2016 [facility] CHEM PANEL Bili Total 0.4 0.2 - 1.3 01/20/2016 [facility] CHEM PANEL Glucose Lvl 85 70 - 99 01/20/2016 [facility] CHEM PANEL AGAP 12.7 10.0 - 20.0 01/20/2016 [facility] CHEM PANEL A/G Ratio 1.1 0.7 - 1.6 01/20/2016 [facility] CHEM PANEL B/C Ratio 13 6 - 25 01/20/2016 [facility] CHEM PANEL Globulin 3.3 2.7 - 4.2 01/20/2016 [facility] HEMATOLOGY Platelet 181 133 - 450 01/20/2016 [facility] HEMATOLOGY MPV 9.1 7.4 - 10.4 01/20/2016 [facility] HEMATOLOGY RBC 4.09 4.20 - 5.40 01/20/2016 [facility] HEMATOLOGY MCHC 33.1 32.0 - 36.0 01/20/2016 [facility] HEMATOLOGY RDW 13.4 11.5 - 14.5 01/20/2016 [facility] HEMATOLOGY MCH 31.2 27.0 - 31.0 01/20/2016 [facility] HEMATOLOGY MCV 94.3 80.0 - 98.0 01/20/2016 [facility] HEMATOLOGY Hct 38.6 36.0 - 48.0 01/20/2016 [facility] HEMATOLOGY Hgb 12.8 12.0 - 16.0 01/20/2016 [facility] HEMATOLOGY WBC 3.3 3.7 - 10.4 01/20/2016 [facility] HEMATOLOGY Lymphocytes 25.7 20.0 - 40.0 01/20/2016 [facility] HEMATOLOGY Segs-Bands # 2.0 1.5 - 8.1 01/20/2016 [facility] HEMATOLOGY Monocytes 8.9 2.0 - 12.0 01/20/2016 [facility] HEMATOLOGY Segs 60.7 45.0 - 75.0 01/20/2016 [facility] HEMATOLOGY Eosinophils # 0.1 0.0 - 0.5 01/20/2016 [facility] HEMATOLOGY Monocytes # 0.3 0.0 - 0.8 01/20/2016 [facility] HEMATOLOGY Lymphocytes # 0.9 1.0 - 5.5 01/20/2016 [facility] HEMATOLOGY Basophils 1.3 0.0 - 1.0 01/20/2016 [facility] HEMATOLOGY Eosinophils 3.4 0.0 - 4.0 01/20/2016 [facility] TUMOR MARKERS CA 27 29 24 0 - 40 01/20/2016 [facility] TUMOR MARKERS CA 15-3 11.5 0.0 - 31.0 01/20/2016 [facility] CHEM PANEL A/G Ratio 1.3 0.7 - 1.6 10/19/2015 [facility] CHEM PANEL Globulin 2.8 2.0 - 4.0 10/19/2015 [facility] CHEM PANEL B/C Ratio 18 6 - 25 10/19/2015 [facility] CHEM PANEL AGAP 9.8 10.0 - 20.0 10/19/2015 [facility] CHEM PANEL eGFR 88 10/19/2015 Result Comment: The eGFR is calculated using the CKD-EPI formula. In most young, healthy individuals the eGFR will be >90 mL/min/1.73m2. The eGFR declines with age. An eGFR of 60-89 may be normal in some populations, particularly the elderly, for whom the CKD-EPI formula has not been extensively validated. Use of the eGFR is not recommended in the following populations:

Individuals with unstable creatinine concentrations, including patients and those with serious co-morbid conditions.

Patients with extremes in muscle mass or diet.

The data above are obtained from the National Kidney Disease Education Program (NKDEP) which additionally recommends that when the eGFR is used in patients with extremes of body mass index for purposes of drug dosing, the eGFR should be multiplied by the estimated BMI. [facility] CHEM PANEL Alk Phos 112 39 - 136 10/19/2015 [facility] CHEM PANEL Albumin Lvl 3.6 3.5 - 5.0 10/19/2015 [facility] CHEM PANEL AST 10 0 - 37 10/19/2015 [facility] CHEM PANEL ALT 19 0 - 65 10/19/2015 [facility] CHEM PANEL Bili Total 0.4 0.2 - 1.3 10/19/2015 [facility] CHEM PANEL Chloride Lvl 105 95 - 109 10/19/2015 [facility] CHEM PANEL Potassium Lvl 3.8 3.5 - 5.1 10/19/2015 [facility] CHEM PANEL Sodium Lvl 140 135 - 145 10/19/2015 [facility] CHEM PANEL BUN 13 7 - 22 10/19/2015 [facility] CHEM PANEL Glucose Lvl 78 70 - 99 10/19/2015 [facility] CHEM PANEL Total Protein 6.4 6.4 - 8.4 10/19/2015 [facility] CHEM PANEL Calcium Lvl 8.8 8.5 - 10.5 10/19/2015 [facility] CHEM PANEL Creatinine Lvl 0.73 0.50 - 1.40 10/19/2015 [facility] CHEM PANEL CO2 29 24 - 32 10/19/2015 [facility] HEMATOLOGY MCV 95.7 80.0 - 98.0 10/19/2015 [facility] HEMATOLOGY MCH 31.0 27.0 - 31.0 10/19/2015 [facility] HEMATOLOGY Hgb 12.2 12.0 - 16.0 10/19/2015 [facility] HEMATOLOGY Hct 37.7 36.0 - 48.0 10/19/2015 [facility] HEMATOLOGY RBC 3.93 4.20 - 5.40 10/19/2015 [facility] HEMATOLOGY WBC 4.0 3.7 - 10.4 10/19/2015 [facility] MCHC 32.4 32.0 - 36.0 10/19/2015 [facility] HEMATOLOGY Platelet 189 133 - 450 10/19/2015 [facility] HEMATOLOGY RDW 13.4 11.5 - 14.5 10/19/2015 [facility] HEMATOLOGY MPV 9.0 7.4 - 10.4 10/19/2015 [facility] HEMATOLOGY Segs 61.3 45.0 - 75.0 10/19/2015 [facility] HEMATOLOGY Basophils 1.0 0.0 - 1.0 10/19/2015 [facility] HEMATOLOGY Eosinophils 4.1 0.0 - 4.0 10/19/2015 [facility] HEMATOLOGY Monocytes 8.2 2.0 - 12.0 10/19/2015 [facility] HEMATOLOGY Lymphocytes 25.4 20.0 - 40.0 10/19/2015 [facility] HEMATOLOGY Lymphocytes # 1.0 1.0 - 5.5 10/19/2015 [facility] Segs-Bands # 2.4 1.5 - 8.1 10/19/2015 [facility] HEMATOLOGY Eosinophils # 0.2 0.0 - 0.5 10/19/2015 [facility] HEMATOLOGY Monocytes # 0.3 0.0 - 0.8 10/19/2015 [facility] TUMOR MARKERS CA 27 29 19 0 - 40 10/19/2015 [facility] TUMOR MARKERS CA 15-3 11.3 0.0 - 31.0 10/19/2015 [facility] CHEM PANEL A/G Ratio 1.1 0.7 - 1.6 08/12/2015 [facility] CHEM PANEL Globulin 3.4 2.0 - 4.0 08/12/2015 [facility] CHEM PANEL B/C Ratio 26 6 - 25 08/12/2015 [facility] CHEM PANEL AGAP 10.3 10.0 - 20.0 08/12/2015 [facility] CHEM PANEL eGFR 83 08/12/2015 Result Comment: The eGFR is calculated using the CKD-EPI formula. In most young, healthy individuals the eGFR will be >90 mL/min/1.73m2. The eGFR declines with age. An eGFR of 60-89 may be normal in some populations, particularly the elderly, for whom the CKD-EPI formula has not been extensively validated. Use of the eGFR is not recommended in the following populations:

Individuals with unstable creatinine concentrations, including patients and those with serious co-morbid conditions.

Patients with extremes in muscle mass or diet.

The data above are obtained from the National Kidney Disease Education Program (NKDEP) which additionally recommends that when the eGFR is used in patients with extremes of body mass index for purposes of drug dosing, the eGFR should be multiplied by the estimated BMI. [facility] CHEM PANEL Chloride Lvl 104 95 - 109 08/12/2015 [facility] CHEM PANEL Potassium Lvl 4.3 3.5 - 5.1 08/12/2015 [facility] CHEM PANEL CO2 29 24 - 32 08/12/2015 [facility] CHEM PANEL Total Protein 7.1 6.4 - 8.4 08/12/2015 [facility] CHEM PANEL Calcium Lvl 8.6 8.5 - 10.5 08/12/2015 [facility] CHEM PANEL Albumin Lvl 3.7 3.5 - 5.0 08/12/2015 [facility] CHEM PANEL Glucose Lvl 81 70 - 99 08/12/2015 [facility] CHEM PANEL BUN 20 7 - 22 08/12/2015 [facility] CHEM PANEL Creatinine Lvl 0.76 0.50 - 1.40 08/12/2015 [facility] CHEM PANEL Sodium Lvl 139 135 - 145 08/12/2015 [facility] CHEM PANEL Alk Phos 133 39 - 136 08/12/2015 [facility] CHEM PANEL Bili Total 0.8 0.2 - 1.3 08/12/2015 [facility] CHEM PANEL ALT 37 0 - 65 08/12/2015 [facility] CHEM PANEL AST 25 0 - 37 08/12/2015 [facility] CHEM PANEL Magnesium Lvl 2.1 1.8 - 2.4 08/12/2015 [facility] CHEM PANEL Phosphorus 4.4 2.5 - 4.5 08/12/2015 [facility] HEMATOLOGY MPV 8.8 7.4 - 10.4 08/12/2015 [facility] Platelet 177 133 - 450 08/12/2015 [facility] RDW 13.3 11.5 - 14.5 08/12/2015 [facility] HEMATOLOGY MCH 30.8 27.0 - 31.0 08/12/2015 [facility] HEMATOLOGY MCV 96.7 80.0 - 98.0 08/12/2015 [facility] MCHC 31.9 32.0 - 36.0 08/12/2015 [facility] RBC 4.11 4.20 - 5.40 08/12/2015 [facility] WBC 4.7 3.7 - 10.4 08/12/2015 [facility] Hgb 12.7 12.0 - 16.0 08/12/2015 [facility] Hct 39.7 36.0 - 48.0 08/12/2015 [facility] HEMATOLOGY Segs 71.5 45.0 - 75.0 08/12/2015 [facility] Lymphocytes 18.3 20.0 - 40.0 08/12/2015 [facility] HEMATOLOGY Eosinophils # 0.1 0.0 - 0.5 08/12/2015 [facility] Basophils # 0.0 0.0 - 0.2 08/12/2015 [facility] Lymphocytes # 0.9 1.0 - 5.5 08/12/2015 [facility] Segs-Bands # 3.3 1.5 - 8.1 08/12/2015 [facility] Basophils 1.0 0.0 - 1.0 08/12/2015 [facility] Eosinophils 1.9 0.0 - 4.0 08/12/2015 [facility] Monocytes # 0.3 0.0 - 0.8 08/12/2015 [facility] Monocytes 7.3 2.0 - 12.0 08/12/2015 [facility] CHEM PANEL eGFR 93 07/21/2015 Result Comment: The eGFR is calculated using the CKD-EPI formula. In most young, healthy individuals the eGFR will be >90 mL/min/1.73m2. The eGFR declines with age. An eGFR of 60-89 may be normal in some populations, particularly the elderly, for whom the CKD-EPI formula has not been extensively validated. Use of the eGFR is not recommended in the following populations:

Individuals with unstable creatinine concentrations, including patients and those with serious co-morbid conditions.

Patients with extremes in muscle mass or diet.

The data above are obtained from the National Kidney Disease Education Program (NKDEP) which additionally recommends that when the eGFR is used in patients with extremes of body mass index for purposes of drug dosing, the eGFR should be multiplied by the estimated BMI. [facility] CHEM PANEL Potassium Lvl 4.0 3.5 - 5.1 07/21/2015 [facility] CHEM PANEL Chloride Lvl 103 95 - 109 07/21/2015 [facility] CHEM PANEL Bili Total 0.4 0.2 - 1.3 07/21/2015 [facility] CHEM PANEL ALT 21 0 - 65 07/21/2015 [facility] CHEM PANEL AST 12 0 - 37 07/21/2015 [facility] CHEM PANEL Alk Phos 127 39 - 136 07/21/2015 [facility] CHEM PANEL Albumin Lvl 3.6 3.5 - 5.0 07/21/2015 [facility] CHEM PANEL Calcium Lvl 9.0 8.5 - 10.5 07/21/2015 [facility] CHEM PANEL Total Protein 6.9 6.4 - 8.4 07/21/2015 [facility] CHEM PANEL CO2 30 24 - 32 07/21/2015 [facility] CHEM PANEL BUN 10 7 - 22 07/21/2015 [facility] CHEM PANEL Glucose Lvl 83 70 - 99 07/21/2015 [facility] CHEM PANEL Creatinine Lvl 0.69 0.50 - 1.40 07/21/2015 [facility] CHEM PANEL Sodium Lvl 140 135 - 145 07/21/2015 [facility] CHEM PANEL A/G Ratio 1.1 0.7 - 1.6 07/21/2015 [facility] CHEM PANEL B/C Ratio 14 6 - 25 07/21/2015 [facility] CHEM PANEL Globulin 3.3 2.0 - 4.0 07/21/2015 [facility] CHEM PANEL AGAP 11.0 10.0 - 20.0 07/21/2015 [facility] CHEM PANEL Magnesium Lvl 2.1 1.8 - 2.4 07/21/2015 [facility] CHEM PANEL Phosphorus 3.5 2.5 - 4.5 07/21/2015 [facility] HEMATOLOGY Eosinophils 2.2 0.0 - 4.0 07/21/2015 [facility] HEMATOLOGY Segs-Bands # 3.1 1.5 - 8.1 07/21/2015 [facility] HEMATOLOGY Basophils 0.7 0.0 - 1.0 07/21/2015 [facility] Monocytes # 0.3 0.0 - 0.8 07/21/2015 [facility] Eosinophils # 0.1 0.0 - 0.5 07/21/2015 [facility] HEMATOLOGY Lymphocytes # 0.8 1.0 - 5.5 07/21/2015 [facility] HEMATOLOGY Segs 71.9 45.0 - 75.0 07/21/2015 [facility] Lymphocytes 17.4 20.0 - 40.0 07/21/2015 [facility] Monocytes 7.8 2.0 - 12.0 07/21/2015 [facility] Platelet 169 133 - 450 07/21/2015 [facility] MPV 9.1 7.4 - 10.4 07/21/2015 [facility] RDW 13.0 11.5 - 14.5 07/21/2015 [facility] RBC 3.63 4.20 - 5.40 07/21/2015 [facility] Hct 35.6 36.0 - 48.0 07/21/2015 [facility] Hgb 11.7 12.0 - 16.0 07/21/2015 [facility] MCH 32.1 27.0 - 31.0 07/21/2015 [facility] MCV 98.0 80.0 - 98.0 07/21/2015 [facility] MCHC 32.8 32.0 - 36.0 07/21/2015 [facility] WBC 4.4 3.7 - 10.4 07/21/2015 [facility] CHEM PANEL B/C Ratio 21 6 - 25 07/01/2015 [facility] CHEM PANEL AGAP 13.0 10.0 - 20.0 07/01/2015 [facility] CHEM PANEL Globulin 2.8 2.0 - 4.0 07/01/2015 [facility] CHEM PANEL A/G Ratio 1.2 0.7 - 1.6 07/01/2015 [facility] CHEM PANEL eGFR 81 07/01/2015 Result Comment: The eGFR is calculated using the CKD-EPI formula. In most young, healthy individuals the eGFR will be >90 mL/min/1.73m2. The eGFR declines with age. An eGFR of 60-89 may be normal in some populations, particularly the elderly, for whom the CKD-EPI formula has not been extensively validated. Use of the eGFR is not recommended in the following populations:

Individuals with unstable creatinine concentrations, including patients and those with serious co-morbid conditions.

Patients with extremes in muscle mass or diet.

The data above are obtained from the National Kidney Disease Education Program (NKDEP) which additionally recommends that when the eGFR is used in patients with extremes of body mass index for purposes of drug dosing, the eGFR should be multiplied by the estimated BMI. [facility] CHEM PANEL Calcium Lvl 8.7 8.5 - 10.5 07/01/2015 [facility] CHEM PANEL CO2 28 24 - 32 07/01/2015 [facility] CHEM PANEL Chloride Lvl 105 95 - 109 07/01/2015 [facility] CHEM PANEL Alk Phos 102 39 - 136 07/01/2015 [facility] CHEM PANEL ALT 20 0 - 65 07/01/2015 [facility] CHEM PANEL Albumin Lvl 3.4 3.5 - 5.0 07/01/2015 [facility] CHEM PANEL Total Protein 6.2 6.4 - 8.4 07/01/2015 [facility] CHEM PANEL Potassium Lvl 4.0 3.5 - 5.1 07/01/2015 [facility] CHEM PANEL Sodium Lvl 142 135 - 145 07/01/2015 [facility] CHEM PANEL Creatinine Lvl 0.78 0.50 - 1.40 07/01/2015 [facility] CHEM PANEL BUN 16 7 - 22 07/01/2015 [facility] CHEM PANEL Glucose Lvl 87 70 - 99 07/01/2015 [facility] CHEM PANEL AST 11 0 - 37 07/01/2015 [facility] CHEM PANEL Bili Total 0.5 0.2 - 1.3 07/01/2015 [facility] CHEM PANEL Phosphorus 3.2 2.5 - 4.5 07/01/2015 [facility] CHEM PANEL Magnesium Lvl 1.9 1.8 - 2.4 07/01/2015 [facility] HEMATOLOGY MPV 8.4 7.4 - 10.4 07/01/2015 [facility] HEMATOLOGY Platelet 181 133 - 450 07/01/2015 [facility] HEMATOLOGY Hgb 11.1 12.0 - 16.0 07/01/2015 [facility] HEMATOLOGY MCHC 32.3 32.0 - 36.0 07/01/2015 [facility] HEMATOLOGY RDW 12.7 11.5 - 14.5 07/01/2015 [facility] HEMATOLOGY MCV 97.2 80.0 - 98.0 07/01/2015 [facility] HEMATOLOGY MCH 31.4 27.0 - 31.0 07/01/2015 [facility] HEMATOLOGY Hct 34.4 36.0 - 48.0 07/01/2015 [facility] HEMATOLOGY WBC 3.7 3.7 - 10.4 07/01/2015 [facility] HEMATOLOGY RBC 3.54 4.20 - 5.40 07/01/2015 [facility] HEMATOLOGY Eosinophils # 0.2 0.0 - 0.5 07/01/2015 [facility] HEMATOLOGY Monocytes # 0.3 0.0 - 0.8 07/01/2015 [facility] HEMATOLOGY Lymphocytes # 0.8 1.0 - 5.5 07/01/2015 [facility] HEMATOLOGY Basophils 0.9 0.0 - 1.0 07/01/2015 [facility] HEMATOLOGY Segs-Bands # 2.4 1.5 - 8.1 07/01/2015 [facility] Lymphocytes 21.6 20.0 - 40.0 07/01/2015 [facility] HEMATOLOGY Monocytes 8.2 2.0 - 12.0 07/01/2015 [facility] HEMATOLOGY Eosinophils 5.1 0.0 - 4.0 07/01/2015 [facility] HEMATOLOGY Segs 64.2 45.0 - 75.0 07/01/2015 [facility] CHEM PANEL Phosphorus 3.6 2.5 - 4.5 06/07/2015 [facility] CHEM PANEL Magnesium Lvl 2.0 1.8 - 2.4 06/07/2015 [facility] ELECTROLYTES AGAP 13.3 10.0 - 20.0 06/07/2015 [facility] ELECTROLYTES B/C Ratio 15 6 - 25 06/07/2015 [facility] ELECTROLYTES A/G Ratio 1.0 0.7 - 1.6 06/07/2015 [facility] ELECTROLYTES Globulin 3.2 2.0 - 4.0 06/07/2015 [facility] ELECTROLYTES eGFR 78 06/07/2015 Result Comment: The eGFR is calculated using the CKD-EPI formula. In most young, healthy individuals the eGFR will be >90 mL/min/1.73m2. The eGFR declines with age. An eGFR of 60-89 may be normal in some populations, particularly the elderly, for whom the CKD-EPI formula has not been extensively validated. Use of the eGFR is not recommended in the following populations:

Individuals with unstable creatinine concentrations, including patients and those with serious co-morbid conditions.

Patients with extremes in muscle mass or diet.

The data above are obtained from the National Kidney Disease Education Program (NKDEP) which additionally recommends that when the eGFR is used in patients with extremes of body mass index for purposes of drug dosing, the eGFR should be multiplied by the estimated BMI. [facility] ELECTROLYTES Albumin Lvl 3.3 3.5 - 5.0 06/07/2015 [facility] ELECTROLYTES Calcium Lvl 8.5 8.5 - 10.5 06/07/2015 [facility] ELECTROLYTES CO2 25 24 - 32 06/07/2015 [facility] ELECTROLYTES Alk Phos 104 39 - 136 06/07/2015 [facility] ELECTROLYTES AST 12 0 - 37 06/07/2015 [facility] ELECTROLYTES ALT 16 0 - 65 06/07/2015 [facility] ELECTROLYTES Bili Total 0.3 0.2 - 1.3 06/07/2015 [facility] ELECTROLYTES Chloride Lvl 104 95 - 109 06/07/2015 [facility] ELECTROLYTES Potassium Lvl 4.3 3.5 - 5.1 06/07/2015 [facility] ELECTROLYTES Total Protein 6.5 6.4 - 8.4 06/07/2015 [facility] ELECTROLYTES BUN 12 7 - 22 06/07/2015 [facility] ELECTROLYTES Glucose Lvl 85 70 - 99 06/07/2015 [facility] ELECTROLYTES Creatinine Lvl 0.8 1 0.50 - 1.40 06/07/2015 [facility] ELECTROLYTES Sodium Lvl 138 135 - 145 06/07/2015 [facility] HEMATOLOGY MCV 98.4 80.0 - 98.0 06/07/2015 [facility] HEMATOLOGY MCH 31.7 27.0 - 31.0 06/07/2015 [facility] HEMATOLOGY MCHC 32.2 32.0 - 36.0 06/07/2015 [facility] HEMATOLOGY MPV 9.1 7.4 - 10.4 06/07/2015 [facility] HEMATOLOGY Hct 37.5 36.0 - 48.0 06/07/2015 [facility] HEMATOLOGY Hgb 12.1 12.0 - 16.0 06/07/2015 [facility] HEMATOLOGY Platelet 223 133 - 450 06/07/2015 [facility] HEMATOLOGY RBC 3.81 4.20 - 5.40 06/07/2015 [facility] HEMATOLOGY RDW 12.6 11.5 - 14.5 06/07/2015 [facility] HEMATOLOGY WBC 4.2 3.7 - 10.4 06/07/2015 [facility] HEMATOLOGY Segs 70.1 45.0 - 75.0 06/07/2015 [facility] HEMATOLOGY Eosinophils # 0.2 0.0 - 0.5 06/07/2015 [facility] HEMATOLOGY Monocytes # 0.2 0.0 - 0.8 06/07/2015 [facility] HEMATOLOGY Lymphocytes # 0.8 1.0 - 5.5 06/07/2015 [facility] HEMATOLOGY Monocytes 4.9 2.0 - 12.0 06/07/2015 [facility] HEMATOLOGY Lymphocytes 18.7 20.0 - 40.0 06/07/2015 [facility] HEMATOLOGY Segs-Bands # 2.9 1.5 - 8.1 06/07/2015 [facility] HEMATOLOGY Basophils 0.7 0.0 - 1.0 06/07/2015 [facility] HEMATOLOGY Eosinophils 5.6 0.0 - 4.0 06/07/2015 [facility] CHEM PANEL eGFR 66 05/17/2015 Result Comment: The eGFR is calculated using the CKD-EPI formula. In most young, healthy individuals the eGFR will be >90 mL/min/1.73m2. The eGFR declines with age. An eGFR of 60-89 may be normal in some populations, particularly the elderly, for whom the CKD-EPI formula has not been extensively validated. Use of the eGFR is not recommended in the following populations:

Individuals with unstable creatinine concentrations, including patients and those with serious co-morbid conditions.

Patients with extremes in muscle mass or diet.

The data above are obtained from the National Kidney Disease Education Program (NKDEP) which additionally recommends that when the eGFR is used in patients with extremes of body mass index for purposes of drug dosing, the eGFR should be multiplied by the estimated BMI. [facility] CHEM PANEL Bili Total 0.5 0.2 - 1.3 05/17/2015 [facility] CHEM PANEL Alk Phos 102 39 - 136 05/17/2015 [facility] CHEM PANEL AST 13 0 - 37 05/17/2015 [facility] CHEM PANEL Total Protein 6.9 6.4 - 8.4 05/17/2015 [facility] CHEM PANEL Albumin Lvl 3.7 3.5 - 5.0 05/17/2015 [facility] CHEM PANEL ALT 21 0 - 65 05/17/2015 [facility] CHEM PANEL CO2 31 24 - 32 05/17/2015 [facility] CHEM PANEL Calcium Lvl 9.2 8.5 - 10.5 05/17/2015 [facility] CHEM PANEL Sodium Lvl 142 135 - 145 05/17/2015 [facility] CHEM PANEL Potassium Lvl 4.3 3.5 - 5.1 05/17/2015 [facility] CHEM PANEL Chloride Lvl 106 95 - 109 05/17/2015 [facility] CHEM PANEL BUN 12 7 - 22 05/17/2015 [facility] CHEM PANEL Creatinine Lvl 0.92 0.50 - 1.40 05/17/2015 [facility] CHEM PANEL Glucose Lvl 118 70 - 99 05/17/2015 [facility] CHEM PANEL Globulin 3.2 2.0 - 4.0 05/17/2015 [facility] CHEM PANEL A/G Ratio 1.2 0.7 - 1.6 05/17/2015 [facility] CHEM PANEL AGAP 9.3 10.0 - 20.0 05/17/2015 [facility] CHEM PANEL B/C Ratio 13 6 - 25 05/17/2015 [facility] CHEM PANEL Magnesium Lvl 1.8 1.8 - 2.4 05/17/2015 [facility] CHEM PANEL Phosphorus 3.4 2.5 - 4.5 05/17/2015 [facility] HEMATOLOGY RBC 4.02 4.20 - 5.40 05/17/2015 [facility] HEMATOLOGY RDW 13.2 11.5 - 14.5 05/17/2015 [facility] HEMATOLOGY MCHC 31.6 32.0 - 36.0 05/17/2015 [facility] HEMATOLOGY Hct 40.5 36.0 - 48.0 05/17/2015 [facility] HEMATOLOGY Hgb 12.8 12.0 - 16.0 05/17/2015 [facility] HEMATOLOGY MCV 100.7 80.0 - 98.0 05/17/2015 [facility] HEMATOLOGY WBC 3.0 3.7 - 10.4 05/17/2015 [facility] HEMATOLOGY Platelet 179 133 - 450 05/17/2015 [facility] HEMATOLOGY MPV 9.3 7.4 - 10.4 05/17/2015 [facility] HEMATOLOGY MCH 31.8 27.0 - 31.0 05/17/2015 [facility] HEMATOLOGY Eosinophils # 0.1 0.0 - 0.5 05/17/2015 [facility] HEMATOLOGY Monocytes # 0.2 0.0 - 0.8 05/17/2015 [facility] Lymphocytes # 0.8 1.0 - 5.5 05/17/2015 [facility] HEMATOLOGY Basophils 1.0 0.0 - 1.0 05/17/2015 [facility] HEMATOLOGY Monocytes 7.8 2.0 - 12.0 05/17/2015 [facility] Segs-Bands # 1.8 1.5 - 8.1 05/17/2015 [facility] HEMATOLOGY Eosinophils 2.0 0.0 - 4.0 05/17/2015 [facility] Lymphocytes 28.4 20.0 - 40.0 05/17/2015 [facility] Macrocyte 1+ *ABN* (05/17/15 2:33 PM) None Seen 05/17/2015 [facility] HEMATOLOGY Segs 60.8 45.0 - 75.0 05/17/2015 [facility] ELECTROLYTES AGAP 9.4 10.0 - 20.0 03/23/2015 [facility] ELECTROLYTES Globulin 3.1 2.0 - 4.0 03/23/2015 [facility] ELECTROLYTES A/G Ratio 1.2 0.7 - 1.6 03/23/2015 [facility] ELECTROLYTES B/C Ratio 13 6 - 25 03/23/2015 [facility] ELECTROLYTES eGFR 60 03/23/2015 Result Comment: The eGFR is calculated using the CKD-EPI formula. In most young, healthy individuals the eGFR will be >90 mL/min/1.73m2. The eGFR declines with age. An eGFR of 60-89 may be normal in some populations, particularly the elderly, for whom the CKD-EPI formula has not been extensively validated. Use of the eGFR is not recommended in the following populations:

Individuals with unstable creatinine concentrations, including patients and those with serious co-morbid conditions.

Patients with extremes in muscle mass or diet.

The data above are obtained from the National Kidney Disease Education Program (NKDEP) which additionally recommends that when the eGFR is used in patients with extremes of body mass index for purposes of drug dosing, the eGFR should be multiplied by the estimated BMI. [facility] ELECTROLYTES Chloride Lvl 104 95 - 109 03/23/2015 [facility] ELECTROLYTES Calcium Lvl 8.9 8.5 - 10.5 03/23/2015 [facility] ELECTROLYTES Potassium Lvl 4.4 3.5 - 5.1 03/23/2015 [facility] ELECTROLYTES Sodium Lvl 139 135 - 145 03/23/2015 [facility] ELECTROLYTES Creatinine Lvl 1.0 0.5 - 1.4 03/23/2015 [facility] ELECTROLYTES Alk Phos 105 39 - 136 03/23/2015 [facility] ELECTROLYTES AST 12 0 - 37 03/23/2015 [facility] ELECTROLYTES ALT 21 0 - 65 03/23/2015 [facility] ELECTROLYTES Albumin Lvl 3.6 3.5 - 5.0 03/23/2015 [facility] ELECTROLYTES Bili Total 0.5 0.2 - 1.3 03/23/2015 [facility] ELECTROLYTES BUN 13 7 - 22 03/23/2015 [facility] ELECTROLYTES Glucose Lvl 125 70 - 99 03/23/2015 [facility] ELECTROLYTES Total Protein 6.7 6.4 - 8.4 03/23/2015 [facility] ELECTROLYTES CO2 30 24 - 32 03/23/2015 [facility] HEMATOLOGY Monocytes # 0.3 0.0 - 0.8 03/23/2015 [facility] HEMATOLOGY Lymphocytes # 0.7 1.0 - 5.5 03/23/2015 [facility] HEMATOLOGY Eosinophils # 0.1 0.0 - 0.5 03/23/2015 [facility] HEMATOLOGY Macrocyte 1+ *ABN* (03/23/15 1:32 PM) None Seen 03/23/2015 [facility] HEMATOLOGY Eosinophils 2.8 0.0 - 4.0 03/23/2015 [facility] HEMATOLOGY Basophils 1.1 0.0 - 1.0 03/23/2015 [facility] HEMATOLOGY Segs-Bands # 1.6 1.5 - 8.1 03/23/2015 [facility] HEMATOLOGY Lymphocytes 25.5 20.0 - 40.0 03/23/2015 [facility] HEMATOLOGY Monocytes 10.2 2.0 - 12.0 03/23/2015 [facility] HEMATOLOGY Segs 60.4 45.0 - 75.0 03/23/2015 [facility] HEMATOLOGY MPV 9.6 7.4 - 10.4 03/23/2015 [facility] HEMATOLOGY Platelet 175 133 - 450 03/23/2015 [facility] HEMATOLOGY MCHC 31.9 32.0 - 36.0 03/23/2015 [facility] HEMATOLOGY RDW 13.2 11.5 - 14.5 03/23/2015 [facility] HEMATOLOGY MCH 32.1 27.0 - 31.0 03/23/2015 [facility] HEMATOLOGY Hgb 12.2 12.0 - 16.0 03/23/2015 [facility] HEMATOLOGY Hct 38.3 36.0 - 48.0 03/23/2015 [facility] HEMATOLOGY MCV 100.7 80.0 - 98.0 03/23/2015 [facility] HEMATOLOGY RBC 3.80 4.20 - 5.40 03/23/2015 [facility] HEMATOLOGY WBC 2.7 3.7 - 10.4 03/23/2015 [facility] CHEM PANEL Magnesium Lvl 2.4 1.8 - 2.4 03/04/2015 [facility] CHEM PANEL BUN 13 7 - 22 03/04/2015 [facility] CHEM PANEL AST 18 0 - 37 03/04/2015 [facility] CHEM PANEL CO2 30 24 - 32 03/04/2015 [facility] CHEM PANEL ALT 25 0 - 65 03/04/2015 [facility] CHEM PANEL Total Protein 6.8 6.4 - 8.4 03/04/2015 [facility] CHEM PANEL Bili Total 0.6 0.2 - 1.3 03/04/2015 [facility] CHEM PANEL Chloride Lvl 100 95 - 109 03/04/2015 [facility] CHEM PANEL Potassium Lvl 3.7 3.5 - 5.1 03/04/2015 [facility] CHEM PANEL Sodium Lvl 142 135 - 145 03/04/2015 [facility] CHEM PANEL Alk Phos 101 39 - 136 03/04/2015 [facility] CHEM PANEL Albumin Lvl 3.9 3.5 - 5.0 03/04/2015 [facility] CHEM PANEL eGFR 68 03/04/2015 Result Comment: The eGFR is calculated using the CKD-EPI formula. In most young, healthy individuals the eGFR will be >90 mL/min/1.73m2. The eGFR declines with age. An eGFR of 60-89 may be normal in some populations, particularly the elderly, for whom the CKD-EPI formula has not been extensively validated. Use of the eGFR is not recommended in the following populations:

Individuals with unstable creatinine concentrations, including patients and those with serious co-morbid conditions.

Patients with extremes in muscle mass or diet.

The data above are obtained from the National Kidney Disease Education Program (NKDEP) which additionally recommends that when the eGFR is used in patients with extremes of body mass index for purposes of drug dosing, the eGFR should be multiplied by the estimated BMI. [facility] CHEM PANEL Creatinine Lvl 0.9 0.5 - 1.4 03/04/2015 [facility] CHEM PANEL Calcium Lvl 9.7 8.5 - 10.5 03/04/2015 [facility] CHEM PANEL Glucose Lvl 89 70 - 99 03/04/2015 [facility] CHEM PANEL B/C Ratio 14 6 - 25 03/04/2015 [facility] CHEM PANEL AGAP 15.7 10.0 - 20.0 03/04/2015 [facility] CHEM PANEL A/G Ratio 1.3 0.7 - 1.6 03/04/2015 [facility] CHEM PANEL Globulin 2.9 2.0 - 4.0 03/04/2015 [facility] HEMATOLOGY Platelet 195 133 - 450 03/04/2015 [facility] HEMATOLOGY MPV 9.8 7.4 - 10.4 03/04/2015 [facility] HEMATOLOGY WBC 3.5 3.7 - 10.4 03/04/2015 [facility] HEMATOLOGY RBC 3.74 4.20 - 5.40 03/04/2015 [facility] HEMATOLOGY Hgb 12.3 12.0 - 16.0 03/04/2015 [facility] HEMATOLOGY Hct 38.4 36.0 - 48.0 03/04/2015 [facility] HEMATOLOGY MCV 102.7 80.0 - 98.0 03/04/2015 [facility] HEMATOLOGY RDW 14.2 11.5 - 14.5 03/04/2015 [facility] HEMATOLOGY MCH 32.7 27.0 - 31.0 03/04/2015 [facility] HEMATOLOGY MCHC 31.9 32.0 - 36.0 03/04/2015 [facility] HEMATOLOGY Monocytes # 0.3 0.0 - 0.8 03/04/2015 [facility] HEMATOLOGY Segs-Bands # 2.2 1.5 - 8.1 03/04/2015 [facility] HEMATOLOGY Eosinophils 2.6 0.0 - 4.0 03/04/2015 [facility] HEMATOLOGY Lymphocytes # 0.9 1.0 - 5.5 03/04/2015 [facility] HEMATOLOGY Basophils 1.2 0.0 - 1.0 03/04/2015 [facility] HEMATOLOGY Lymphocytes 24.4 20.0 - 40.0 03/04/2015 [facility] HEMATOLOGY Segs 62.1 45.0 - 75.0 03/04/2015 [facility] HEMATOLOGY Monocytes 9.7 2.0 - 12.0 03/04/2015 [facility] HEMATOLOGY Macrocyte 1+ *ABN* (03/04/15 8:10 AM) None Seen 03/04/2015 [facility] HEMATOLOGY Eosinophils # 0.1 0.0 - 0.5 03/04/2015 [facility] CHEM PANEL Magnesium Lvl 2.0 1.8 - 2.4 02/11/2015 [facility] ELECTROLYTES Sodium Lvl 140 135 - 145 02/11/2015 [facility] ELECTROLYTES Potassium Lvl 4.5 3.5 - 5.1 02/11/2015 [facility] ELECTROLYTES Chloride Lvl 105 95 - 109 02/11/2015 [facility] ELECTROLYTES BUN 14 7 - 22 02/11/2015 [facility] ELECTROLYTES Total Protein 6.4 6.4 - 8.4 02/11/2015 [facility] ELECTROLYTES Glucose Lvl 82 70 - 99 02/11/2015 [facility] ELECTROLYTES eGFR 68 02/11/2015 Result Comment: The eGFR is calculated using the CKD-EPI formula. In most young, healthy individuals the eGFR will be >90 mL/min/1.73m2. The eGFR declines with age. An eGFR of 60-89 may be normal in some populations, particularly the elderly, for whom the CKD-EPI formula has not been extensively validated. Use of the eGFR is not recommended in the following populations:

Individuals with unstable creatinine concentrations, including patients and those with serious co-morbid conditions.

Patients with extremes in muscle mass or diet.

The data above are obtained from the National Kidney Disease Education Program (NKDEP) which additionally recommends that when the eGFR is used in patients with extremes of body mass index for purposes of drug dosing, the eGFR should be multiplied by the estimated BMI. [facility] ELECTROLYTES Creatinine Lvl 0.9 0.5 - 1.4 02/11/2015 [facility] ELECTROLYTES Bili Total 0.5 0.2 - 1.3 02/11/2015 [facility] ELECTROLYTES CO2 31 24 - 32 02/11/2015 [facility] ELECTROLYTES Albumin Lvl 3.5 3.5 - 5.0 02/11/2015 [facility] ELECTROLYTES Alk Phos 104 39 - 136 02/11/2015 [facility] ELECTROLYTES AST 14 0 - 37 02/11/2015 [facility] ELECTROLYTES Calcium Lvl 8.7 8.5 - 10.5 02/11/2015 [facility] ELECTROLYTES ALT 23 0 - 65 02/11/2015 [facility] ELECTROLYTES Globulin 2.9 2.0 - 4.0 02/11/2015 [facility] ELECTROLYTES A/G Ratio 1.2 0.7 - 1.6 02/11/2015 [facility] ELECTROLYTES B/C Ratio 16 6 - 25 02/11/2015 [facility] ELECTROLYTES AGAP 8.5 10.0 - 20.0 02/11/2015 [facility] MCV 98.4 80.0 - 98.0 02/11/2015 [facility] HEMATOLOGY Hgb 11.9 12.0 - 16.0 02/11/2015 [facility] HEMATOLOGY Hct 35.3 36.0 - 48.0 02/11/2015 [facility] MCH 33.1 27.0 - 31.0 02/11/2015 [facility] MCHC 33.7 32.0 - 36.0 02/11/2015 [facility] HEMATOLOGY Platelet 177 133 - 450 02/11/2015 [facility] MPV 9.3 7.4 - 10.4 02/11/2015 [facility] RDW 13.2 11.5 - 14.5 02/11/2015 [facility] WBC 3.1 3.7 - 10.4 02/11/2015 [facility] RBC 3.59 4.20 - 5.40 02/11/2015 [facility] HEMATOLOGY Segs 70.3 45.0 - 75.0 02/11/2015 [facility] Lymphocytes 15.8 20.0 - 40.0 02/11/2015 [facility] Monocytes 10.8 2.0 - 12.0 02/11/2015 [facility] Eosinophils 2.2 0.0 - 4.0 02/11/2015 [facility] Lymphocytes # 0.5 1.0 - 5.5 02/11/2015 [facility] HEMATOLOGY Segs-Bands # 2.2 1.5 - 8.1 02/11/2015 [facility] HEMATOLOGY Basophils 0.9 0.0 - 1.0 02/11/2015 [facility] HEMATOLOGY Eosinophils # 0.1 0.0 - 0.5 02/11/2015 [facility] HEMATOLOGY Monocytes # 0.3 0.0 - 0.8 02/11/2015 [facility] CHEM PANEL eGFR 79 01/21/2015 Result Comment: The eGFR is calculated using the CKD-EPI formula. In most young, healthy individuals the eGFR will be >90 mL/min/1.73m2. The eGFR declines with age. An eGFR of 60-89 may be normal in some populations, particularly the elderly, for whom the CKD-EPI formula has not been extensively validated. Use of the eGFR is not recommended in the following populations:

Individuals with unstable creatinine concentrations, including patients and those with serious co-morbid conditions.

Patients with extremes in muscle mass or diet.

The data above are obtained from the National Kidney Disease Education Program (NKDEP) which additionally recommends that when the eGFR is used in patients with extremes of body mass index for purposes of drug dosing, the eGFR should be multiplied by the estimated BMI. [facility] CHEM PANEL Bili Total 0.5 0.2 - 1.3 01/21/2015 [facility] CHEM PANEL AST 23 0 - 37 01/21/2015 [facility] CHEM PANEL Alk Phos 105 39 - 136 01/21/2015 [facility] CHEM PANEL ALT 28 0 - 65 01/21/2015 [facility] CHEM PANEL Albumin Lvl 3.6 3.5 - 5.0 01/21/2015 [facility] CHEM PANEL Calcium Lvl 9.0 8.5 - 10.5 01/21/2015 [facility] CHEM PANEL CO2 28 24 - 32 01/21/2015 [facility] CHEM PANEL Total Protein 7.0 6.4 - 8.4 01/21/2015 [facility] CHEM PANEL BUN 10 7 - 22 01/21/2015 [facility] CHEM PANEL Creatinine Lvl 0.8 0.5 - 1.4 01/21/2015 [facility] CHEM PANEL Glucose Lvl 83 70 - 99 01/21/2015 [facility] CHEM PANEL Sodium Lvl 139 135 - 145 01/21/2015 [facility] CHEM PANEL Potassium Lvl 4.0 3.5 - 5.1 01/21/2015 [facility] CHEM PANEL Chloride Lvl 103 95 - 109 01/21/2015 [facility] CHEM PANEL Globulin 3.4 2.0 - 4.0 01/21/2015 [facility] CHEM PANEL A/G Ratio 1.1 0.7 - 1.6 01/21/2015 [facility] CHEM PANEL AGAP 12.0 10.0 - 20.0 01/21/2015 [facility] CHEM PANEL B/C Ratio 12 6 - 25 01/21/2015 [facility] CHEM PANEL Magnesium Lvl 2.1 1.8 - 2.4 01/21/2015 [facility] HEMATOLOGY Segs-Bands # 1.0 1.5 - 8.1 01/21/2015 [facility] Lymphocytes # 0.4 1.0 - 5.5 01/21/2015 [facility] Monocytes # 0.3 0.0 - 0.8 01/21/2015 [facility] Basophils 0.9 0.0 - 1.0 01/21/2015 [facility] Macrocyte 1+ *ABN* (01/21/15 11:59 AM) None Seen 01/21/2015 [facility] Lymphocytes 21.3 20.0 - 40.0 01/21/2015 [facility] Monocytes 18.9 2.0 - 12.0 01/21/2015 [facility] Eosinophils 2.0 0.0 - 4.0 01/21/2015 [facility] Plt Morph Nayeli l (01/21/15 11:59 AM) 01/21/2015 [facility] Segs 56.9 45.0 - 75.0 01/21/2015 [facility] MPV 9.6 7.4 - 10.4 01/21/2015 [facility] Platelet 148 133 - 450 01/21/2015 [facility] RDW 13.7 11.5 - 14.5 01/21/2015 [facility] MCHC 33.3 32.0 - 36.0 01/21/2015 [facility] MCH 33.4 27.0 - 31.0 01/21/2015 [facility] MCV 100.2 80.0 - 98.0 01/21/2015 [facility] Hct 39.8 36.0 - 48.0 01/21/2015 [facility] Hgb 13.3 12.0 - 16.0 01/21/2015 [facility] RBC 3.98 4.20 - 5.40 01/21/2015 [facility] WBC 1.8 3.7 - 10.4 01/21/2015 [facility] CHEM PANEL A/G Ratio 1.2 0.7 - 1.6 12/31/2014 [facility] CHEM PANEL B/C Ratio 14 6 - 25 12/31/2014 [facility] CHEM PANEL Globulin 2.9 2.0 - 4.0 12/31/2014 [facility] CHEM PANEL AGAP 9.2 10.0 - 20.0 12/31/2014 [facility] CHEM PANEL eGFR 68 12/31/2014 Result Comment: The eGFR is calculated using the CKD-EPI formula. In most young, healthy individuals the eGFR will be >90 mL/min/1.73m2. The eGFR declines with age. An eGFR of 60-89 may be normal in some populations, particularly the elderly, for whom the CKD-EPI formula has not been extensively validated. Use of the eGFR is not recommended in the following populations:

Individuals with unstable creatinine concentrations, including patients and those with serious co-morbid conditions.

Patients with extremes in muscle mass or diet.

The data above are obtained from the National Kidney Disease Education Program (NKDEP) which additionally recommends that when the eGFR is used in patients with extremes of body mass index for purposes of drug dosing, the eGFR should be multiplied by the estimated BMI. [facility] CHEM PANEL BUN 13 7 - 22 12/31/2014 [facility] CHEM PANEL Glucose Lvl 70 70 - 99 12/31/2014 [facility] CHEM PANEL Total Protein 6.4 6.4 - 8.4 12/31/2014 [facility] CHEM PANEL CO2 30 24 - 32 12/31/2014 [facility] CHEM PANEL Calcium Lvl 8.5 8.5 - 10.5 12/31/2014 [facility] CHEM PANEL Creatinine Lvl 0.9 0.5 - 1.4 12/31/2014 [facility] CHEM PANEL ALT 22 0 - 65 12/31/2014 [facility] CHEM PANEL Albumin Lvl 3.5 3.5 - 5.0 12/31/2014 [facility] CHEM PANEL Alk Phos 94 39 - 136 12/31/2014 [facility] CHEM PANEL AST 13 0 - 37 12/31/2014 [facility] CHEM PANEL Bili Total 0.3 0.2 - 1.3 12/31/2014 [facility] CHEM PANEL Potassium Lvl 4.2 3.5 - 5.1 12/31/2014 [facility] CHEM PANEL Chloride Lvl 108 95 - 109 12/31/2014 [facility] CHEM PANEL Sodium Lvl 143 135 - 145 12/31/2014 [facility] CHEM PANEL Magnesium Lvl 2.0 1.8 - 2.4 12/31/2014 [facility] HEMATOLOGY Lymphocytes # 0.6 1.0 - 5.5 12/31/2014 [facility] HEMATOLOGY Eosinophils # 0.1 0.0 - 0.5 12/31/2014 [facility] HEMATOLOGY Segs-Bands # 2.0 1.5 - 8.1 12/31/2014 [facility] HEMATOLOGY Monocytes # 0.3 0.0 - 0.8 12/31/2014 [facility] Macrocyte 1+ *ABN* (12/31/14 2:44 PM) None Seen 12/31/2014 [facility] Segs 66.8 45.0 - 75.0 12/31/2014 [facility] Lymphocytes 19.1 20.0 - 40.0 12/31/2014 [facility] HEMATOLOGY Eosinophils 2.5 0.0 - 4.0 12/31/2014 [facility] Monocytes 10.8 2.0 - 12.0 12/31/2014 [facility] Basophils 0.8 0.0 - 1.0 12/31/2014 [facility] MCH 33.7 27.0 - 31.0 12/31/2014 [facility] MCHC 33.3 32.0 - 36.0 12/31/2014 [facility] MPV 9.5 7.4 - 10.4 12/31/2014 [facility] RDW 13.0 11.5 - 14.5 12/31/2014 [facility] Platelet 187 133 - 450 12/31/2014 [facility] WBC 3.0 3.7 - 10.4 12/31/2014 [facility] Hgb 12.3 12.0 - 16.0 12/31/2014 [facility] RBC 3.64 4.20 - 5.40 12/31/2014 [facility] MCV 101.2 80.0 - 98.0 12/31/2014 [facility] Hct 36.9 36.0 - 48.0 12/31/2014 [facility] CHEM PANEL Magnesium Lvl 2.2 1.8 - 2.4 12/10/2014 [facility] CHEM PANEL A/G Ratio 1.3 0.7 - 1.6 12/10/2014 [facility] CHEM PANEL Globulin 2.9 2.0 - 4.0 12/10/2014 [facility] CHEM PANEL B/C Ratio 13 6 - 25 12/10/2014 [facility] CHEM PANEL AGAP 13.0 10.0 - 20.0 12/10/2014 [facility] CHEM PANEL eGFR 92 12/10/2014 Result Comment: The eGFR is calculated using the CKD-EPI formula. In most young, healthy individuals the eGFR will be >90 mL/min/1.73m2. The eGFR declines with age. An eGFR of 60-89 may be normal in some populations, particularly the elderly, for whom the CKD-EPI formula has not been extensively validated. Use of the eGFR is not recommended in the following populations:

Individuals with unstable creatinine concentrations, including patients and those with serious co-morbid conditions.

Patients with extremes in muscle mass or diet.

The data above are obtained from the National Kidney Disease Education Program (NKDEP) which additionally recommends that when the eGFR is used in patients with extremes of body mass index for purposes of drug dosing, the eGFR should be multiplied by the estimated BMI. [facility] CHEM PANEL Albumin Lvl 3.9 3.5 - 5.0 12/10/2014 [facility] CHEM PANEL Total Protein 6.8 6.4 - 8.4 12/10/2014 [facility] CHEM PANEL ALT 29 0 - 65 12/10/2014 [facility] CHEM PANEL CO2 28 24 - 32 12/10/2014 [facility] CHEM PANEL Alk Phos 116 39 - 136 12/10/2014 [facility] CHEM PANEL AST 20 0 - 37 12/10/2014 [facility] CHEM PANEL Glucose Lvl 84 70 - 99 12/10/2014 [facility] CHEM PANEL Creatinine Lvl 0.7 0.5 - 1.4 12/10/2014 [facility] CHEM PANEL BUN 9 7 - 22 12/10/2014 [facility] CHEM PANEL Bili Total 0.4 0.2 - 1.3 12/10/2014 [facility] CHEM PANEL Sodium Lvl 142 135 - 145 12/10/2014 [facility] CHEM PANEL Calcium Lvl 8.7 8.5 - 10.5 12/10/2014 [facility] CHEM PANEL Potassium Lvl 4.0 3.5 - 5.1 12/10/2014 [facility] CHEM PANEL Chloride Lvl 105 95 - 109 12/10/2014 [facility] HEMATOLOGY MPV 8.9 7.4 - 10.4 12/10/2014 [facility] HEMATOLOGY MCH 34.5 27.0 - 31.0 12/10/2014 [facility] HEMATOLOGY MCV 102.9 80.0 - 98.0 12/10/2014 [facility] HEMATOLOGY MCHC 33.5 32.0 - 36.0 12/10/2014 [facility] HEMATOLOGY Platelet 169 133 - 450 12/10/2014 [facility] HEMATOLOGY RDW 13.2 11.5 - 14.5 12/10/2014 [facility] HEMATOLOGY Hgb 13.3 12.0 - 16.0 12/10/2014 [facility] HEMATOLOGY Hct 39.7 36.0 - 48.0 12/10/2014 [facility] HEMATOLOGY RBC 3.86 4.20 - 5.40 12/10/2014 [facility] HEMATOLOGY WBC 2.6 3.7 - 10.4 12/10/2014 [facility] HEMATOLOGY Basophils 0.9 0.0 - 1.0 12/10/2014 [facility] HEMATOLOGY Segs-Bands # 1.6 1.5 - 8.1 12/10/2014 [facility] HEMATOLOGY Eosinophils 2.2 0.0 - 4.0 12/10/2014 [facility] HEMATOLOGY Monocytes 12.9 2.0 - 12.0 12/10/2014 [facility] HEMATOLOGY Monocytes # 0.3 0.0 - 0.8 12/10/2014 [facility] HEMATOLOGY Macrocyte 1+ *ABN* (12/10/14 12:15 PM) None Seen 12/10/2014 [facility] HEMATOLOGY Lymphocytes # 0.5 1.0 - 5.5 12/10/2014 [facility] HEMATOLOGY Eosinophils # 0.1 0.0 - 0.5 12/10/2014 [facility] HEMATOLOGY Segs 63.3 45.0 - 75.0 12/10/2014 [facility] HEMATOLOGY Lymphocytes 20.7 20.0 - 40.0 12/10/2014 [facility] CHEM PANEL Magnesium Lvl 1.8 1.8 - 2.4 11/19/2014 [facility] ELECTROLYTES CO2 29 24 - 32 11/19/2014 [facility] ELECTROLYTES Albumin Lvl 3.5 3.5 - 5.0 11/19/2014 [facility] ELECTROLYTES Total Protein 6.4 6.4 - 8.4 11/19/2014 [facility] ELECTROLYTES Alk Phos 99 39 - 136 11/19/2014 [facility] ELECTROLYTES Bili Total 0.3 0.2 - 1.3 11/19/2014 [facility] ELECTROLYTES AST 25 0 - 37 11/19/2014 [facility] ELECTROLYTES ALT 49 0 - 65 11/19/2014 [facility] ELECTROLYTES Glucose Lvl 81 70 - 99 11/19/2014 <sup>3</sup>Interpretive Data: Adult ref erence range values reflect the clinical guidelines
of the [place] [employer]. [facility] ELECTROLYTES BUN 7 7 - 22 11/19/2014 [facility] ELECTROLYTES eGFR 92 11/19/2014 <sup>1</sup>Result Comment: The eGFR is calculated using the CKD-EPI formula. In most young, healthy individuals the eGFR will be >90 mL/min/1.73m2. The eGFR declines with age. An eGFR of 60-89 may be normal in some populations, particularly the elderly, for whom the CKD-EPI formula has not been extensively validated. Use of the eGFR is not recommended in the following populations:& lt;br/>
Individuals with unstable creatinine concentrations, including patients and those with serious co-morbid conditions.

Patients with extremes in muscle mass or diet.

The data above are obtained from the National Kidney Disease Education Program (NKDEP) which additionally recommends that when the eGFR is used in patients with extremes of body mass index for purposes of drug dosing, the eGFR should be multiplied by the estimated BMI. [facility] ELECTROLYTES Calcium Lvl 8.6 8.5 - 10.5 11/19/2014 [facility] ELECTROLYTES Potassium Lvl 3.9 3.5 - 5.1 11/19/2014 [facility] ELECTROLYTES Chloride Lvl 106 95 - 109 11/19/2014 [facility] ELECTROLYTES Creatinine Lvl 0.7 0.5 - 1.4 11/19/2014 [facility] ELECTROLYTES Sodium Lvl 143 135 - 145 11/19/2014 [facility] ELECTROLYTES AGAP 11.9 10.0 - 20.0 11/19/2014 [facility] ELECTROLYTES B/C Ratio 10 6 - 25 11/19/2014 [facility] ELECTROLYTES Globulin 2.9 2.0 - 4.0 11/19/2014 [facility] ELECTROLYTES A/G Ratio 1.2 0.7 - 1.6 11/19/2014 [facility] Lymphocytes # 0.4 1.0 - 5.5 11/19/2014 [facility] HEMATOLOGY Segs-Bands # 1.7 1.5 - 8.1 11/19/2014 [facility] HEMATOLOGY Basophils 0.8 0.0 - 1.0 11/19/2014 [facility] HEMATOLOGY Eosinophils 1.7 0.0 - 4.0 11/19/2014 [facility] Macrocyte 2+ *ABN* (11/19/14 12:15 PM) None Seen 11/19/2014 [facility] Monocytes # 0.2 0.0 - 0.8 11/19/2014 [facility] Lymphocytes 17.2 20.0 - 40.0 11/19/2014 [facility] HEMATOLOGY Segs 71.1 45.0 - 75.0 11/19/2014 [facility] HEMATOLOGY Monocytes 9.2 2.0 - 12.0 11/19/2014 [facility] HEMATOLOGY MPV 9.5 7.4 - 10.4 11/19/2014 [facility] HEMATOLOGY MCHC 33.6 32.0 - 36.0 11/19/2014 [facility] MCV 104.5 80.0 - 98.0 11/19/2014 [facility] RDW 13.5 11.5 - 14.5 11/19/2014 [facility] MCH 35.2 27.0 - 31.0 11/19/2014 [facility] Platelet 170 133 - 450 11/19/2014 [facility] WBC 2.4 3.7 - 10.4 11/19/2014 [facility] RBC 3.53 4.20 - 5.40 11/19/2014 [facility] Hgb 12.4 12.0 - 16.0 11/19/2014 [facility] Hct 36.9 36.0 - 48.0 11/19/2014 [facility] CHEM PANEL Bili Total 0.4 0.2 - 1.3 10/29/2014 [facility] CHEM PANEL Albumin Lvl 4.1 3.5 - 5.0 10/29/2014 [facility] CHEM PANEL ALT 26 0 - 65 10/29/2014 [facility] CHEM PANEL AST 14 0 - 37 10/29/2014 [facility] CHEM PANEL BUN 13 7 - 22 10/29/2014 [facility] CHEM PANEL Total Protein 7.0 6.4 - 8.4 10/29/2014 [facility] CHEM PANEL Glucose Lvl 83 70 - 99 10/29/2014 <sup>4</sup>Interpretive Data: Adult ref erence range values reflect the clinical guidelines
of the [place] [employer]. [facility] CHEM PANEL CO2 30 24 - 32 10/29/2014 [facility] CHEM PANEL Alk Phos 135 39 - 136 10/29/2014 [facility] CHEM PANEL eGFR 79 10/29/2014 <sup>2</sup>Result Comment: The eGFR is calculated using the CKD-EPI formula. In most young, healthy individuals the eGFR will be >90 mL/min/1.73m2. The eGFR declines with age. An eGFR of 60-89 may be normal in some populations, particularly the elderly, for whom the CKD-EPI formula has not been extensively validated. Use of the eGFR is not recommended in the following populations:& lt;br/>
Individuals with unstable creatinine concentrations, including patients and those with serious co-morbid conditions.

Patients with extremes in muscle mass or diet.

The data above are obtained from the National Kidney Disease Education Program (NKDEP) which additionally recommends that when the eGFR is used in patients with extremes of body mass index for purposes of drug dosing, the eGFR should be multiplied by the estimated BMI. [facility] CHEM PANEL Calcium Lvl 9.0 8.5 - 10.5 10/29/2014 [facility] CHEM PANEL Sodium Lvl 143 135 - 145 10/29/2014 [facility] CHEM PANEL Chloride Lvl 107 95 - 109 10/29/2014 [facility] CHEM PANEL Creatinine Lvl 0.8 0.5 - 1.4 10/29/2014 [facility] CHEM PANEL Potassium Lvl 4.6 3.5 - 5.1 10/29/2014 [facility] CHEM PANEL B/C Ratio 16 6 - 25 10/29/2014 [facility] CHEM PANEL A/G Ratio 1.4 0.7 - 1.6 10/29/2014 [facility] CHEM PANEL AGAP 10.6 10.0 - 20.0 10/29/2014 [facility] CHEM PANEL Globulin 2.9 2.0 - 4.0 10/29/2014 [facility] CHEM PANEL Magnesium Lvl 2.2 1.8 - 2.4 10/29/2014 [facility] HEMATOLOGY Lymphocytes 19.2 20.0 - 40.0 10/29/2014 [facility] HEMATOLOGY Segs 68.1 45.0 - 75.0 10/29/2014 [facility] HEMATOLOGY Macrocyte 2+ *ABN* (10/29/14 11:53 AM) None Seen 10/29/2014 [facility] HEMATOLOGY Eosinophils 3.5 0.0 - 4.0 10/29/2014 [facility] HEMATOLOGY Basophils 1.4 0.0 - 1.0 10/29/2014 [facility] HEMATOLOGY Monocytes 7.8 2.0 - 12.0 10/29/2014 [facility] HEMATOLOGY Basophils # 0.1 0.0 - 0.2 10/29/2014 [facility] HEMATOLOGY Eosinophils # 0.1 0.0 - 0.5 10/29/2014 [facility] Segs-Bands # 2.7 1.5 - 8.1 10/29/2014 [facility] Monocytes # 0.3 0.0 - 0.8 10/29/2014 [facility] Lymphocytes # 0.8 1.0 - 5.5 10/29/2014 [facility] Hct 36.7 36.0 - 48.0 10/29/2014 [facility] MCV 107.0 80.0 - 98.0 10/29/2014 [facility] MPV 9.5 7.4 - 10.4 10/29/2014 [facility] Platelet 205 133 - 450 10/29/2014 [facility] RDW 14.5 11.5 - 14.5 10/29/2014 [facility] WBC 3.9 3.7 - 10.4 10/29/2014 [facility] RBC 3.43 4.20 - 5.40 10/29/2014 [facility] Hgb 12.4 12.0 - 16.0 10/29/2014 [facility] MCHC 33.7 32.0 - 36.0 10/29/2014 [facility] MCH 36.0 27.0 - 31.0 10/29/2014 [facility] CHEM PANEL Magnesium Lvl 2.1 1.8 - 2.4 10/08/2014 [facility] CHEM PANEL eGFR 79 10/08/2014 <sup>1</sup>Result Comment: The eGFR is calculated using the CKD-EPI formula. In most young, healthy individuals the eGFR will be >90 mL/min/1.73m2. The eGFR declines with age. An eGFR of 60-89 may be normal in some populations, particularly the elderly, for whom the CKD-EPI formula has not been extensively validated. Use of the eGFR is not recommended in the following populations:& lt;br/>
Individuals with unstable creatinine concentrations, including patients and those with serious co-morbid conditions.

Patients with extremes in muscle mass or diet.

The data above are obtained from the National Kidney Disease Education Program (NKDEP) which additionally recommends that when the eGFR is used in patients with extremes of body mass index for purposes of drug dosing, the eGFR should be multiplied by the estimated BMI. [facility] CHEM PANEL Potassium Lvl 3.8 3.5 - 5.1 10/08/2014 [facility] CHEM PANEL Sodium Lvl 140 135 - 145 10/08/2014 [facility] CHEM PANEL Creatinine Lvl 0.8 0.5 - 1.4 10/08/2014 [facility] CHEM PANEL Calcium Lvl 8.9 8.5 - 10.5 10/08/2014 [facility] CHEM PANEL Chloride Lvl 105 95 - 109 10/08/2014 [facility] CHEM PANEL Bili Total 0.4 0.2 - 1.3 10/08/2014 [facility] CHEM PANEL Alk Phos 112 39 - 136 10/08/2014 [facility] CHEM PANEL AST 17 0 - 37 10/08/2014 [facility] CHEM PANEL Total Protein 6.6 6.4 - 8.4 10/08/2014 [facility] CHEM PANEL Albumin Lvl 3.5 3.5 - 5.0 10/08/2014 [facility] CHEM PANEL ALT 30 0 - 65 10/08/2014 [facility] CHEM PANEL CO2 28 24 - 32 10/08/2014 [facility] CHEM PANEL BUN 9 7 - 22 10/08/2014 [facility] CHEM PANEL Glucose Lvl 82 70 - 99 10/08/2014 <sup>4</sup>Interpretive Data: Adult ref erence range values reflect the clinical guidelines
of the [place] [employer]. [facility] CHEM PANEL Globulin 3.1 2.0 - 4.0 10/08/2014 [facility] CHEM PANEL B/C Ratio 11 6 - 25 10/08/2014 [facility] CHEM PANEL A/G Ratio 1.1 0.7 - 1.6 10/08/2014 [facility] CHEM PANEL AGAP 10.8 10.0 - 20.0 10/08/2014 [facility] HEMATOLOGY Tot Cell Ct 100 10/08/2014 [facility] HEMATOLOGY Plt Morph Nayeli l (10/08/14 11:52 AM) 10/08/2014 [facility] HEMATOLOGY Atypical Lymphs 0.0 <=0.0 % 10/08/2014 [facility] HEMATOLOGY Basophils 1.0 0.0 - 1.0 10/08/2014 [facility] HEMATOLOGY Myelocytes 1.0 <=0.0 % 10/08/2014 [facility] HEMATOLOGY Monocytes 10.0 2.0 - 12.0 10/08/2014 [facility] HEMATOLOGY Bands 16.0 0.0 - 11.0 10/08/2014 [facility] HEMATOLOGY Lymphocytes 26.0 20.0 - 40.0 10/08/2014 [facility] HEMATOLOGY Segs-Bands # 1.1 1.5 - 8.1 10/08/2014 [facility] HEMATOLOGY Basophils # 0.0 0.0 - 0.2 10/08/2014 [facility] HEMATOLOGY Segs 45.0 45.0 - 75.0 10/08/2014 [facility] Eosinophils # 0.0 0.0 - 0.5 10/08/2014 [facility] HEMATOLOGY Monocytes # 0.2 0.0 - 0.8 10/08/2014 [facility] Macrocyte 3+ *ABN* (10/08/14 11:52 AM) None Seen 10/08/2014 [facility] Eosinophils 1.0 0.0 - 4.0 10/08/2014 [facility] Lymphocytes # 0.5 1.0 - 5.5 10/08/2014 [facility] Platelet 196 133 - 450 10/08/2014 [facility] RDW 15.7 11.5 - 14.5 10/08/2014 [facility] MCHC 33.7 32.0 - 36.0 10/08/2014 [facility] MPV 9.5 7.4 - 10.4 10/08/2014 [facility] MCH 37.5 27.0 - 31.0 10/08/2014 [facility] Hct 31.2 36.0 - 48.0 10/08/2014 [facility] MCV 111.5 80.0 - 98.0 10/08/2014 [facility] Hgb 10.5 12.0 - 16.0 10/08/2014 [facility] RBC 2.80 4.20 - 5.40 10/08/2014 [facility] WBC 1.8 3.7 - 10.4 10/08/2014 [facility] CHEM PANEL Magnesium Lvl 2.2 1.8 - 2.4 10/01/2014 [facility] ELECTROLYTES AGAP 12.0 10.0 - 20.0 10/01/2014 [facility] ELECTROLYTES B/C Ratio 14 6 - 25 10/01/2014 [facility] ELECTROLYTES Globulin 3.3 2.0 - 4.0 10/01/2014 [facility] ELECTROLYTES A/G Ratio 1.1 0.7 - 1.6 10/01/2014 [facility] ELECTROLYTES eGFR 93 10/01/2014 <sup>2</sup>Result Comment: The eGFR is calculated using the CKD-EPI formula. In most young, healthy individuals the eGFR will be >90 mL/min/1.73m2. The eGFR declines with age. An eGFR of 60-89 may be normal in some populations, particularly the elderly, for whom the CKD-EPI formula has not been extensively validated. Use of the eGFR is not recommended in the following populations:& lt;br/>
Individuals with unstable creatinine concentrations, including patients and those with serious co-morbid conditions.

Patients with extremes in muscle mass or diet.

The data above are obtained from the National Kidney Disease Education Program (NKDEP) which additionally recommends that when the eGFR is used in patients with extremes of body mass index for purposes of drug dosing, the eGFR should be multiplied by the estimated BMI. [facility] ELECTROLYTES CO2 28 24 - 32 10/01/2014 [facility] ELECTROLYTES Alk Phos 177 39 - 136 10/01/2014 [facility] ELECTROLYTES AST 15 0 - 37 10/01/2014 [facility] ELECTROLYTES Bili Total 0.5 0.2 - 1.3 10/01/2014 [facility] ELECTROLYTES Albumin Lvl 3.7 3.5 - 5.0 10/01/2014 [facility] ELECTROLYTES ALT 25 0 - 65 10/01/2014 [facility] ELECTROLYTES Total Protein 7.0 6.4 - 8.4 10/01/2014 [facility] ELECTROLYTES Creatinine Lvl 0.7 0.5 - 1.4 10/01/2014 [facility] ELECTROLYTES BUN 10 7 - 22 10/01/2014 [facility] ELECTROLYTES Glucose Lvl 68 70 - 99 10/01/2014 <sup>5</sup>Interpretive Data: Adult ref erence range values reflect the clinical guidelines
of the [place] [employer]. [facility] ELECTROLYTES Calcium Lvl 9.0 8.5 - 10.5 10/01/2014 [facility] ELECTROLYTES Potassium Lvl 4.0 3.5 - 5.1 10/01/2014 [facility] ELECTROLYTES Sodium Lvl 140 135 - 145 10/01/2014 [facility] ELECTROLYTES Chloride Lvl 104 95 - 109 10/01/2014 [facility] HEMATOLOGY Segs 91.4 45.0 - 75.0 10/01/2014 [facility] HEMATOLOGY RBC Morph Nayeli l (10/01/14 3:18 PM) 10/01/2014 [facility] HEMATOLOGY Plt Morph Nayeli l (10/01/14 3:18 PM) 10/01/2014 [facility] HEMATOLOGY Lymphocytes 4.6 20.0 - 40.0 10/01/2014 [facility] HEMATOLOGY Monocytes # 0.4 0.0 - 0.8 10/01/2014 [facility] HEMATOLOGY Lymphocytes # 0.7 1.0 - 5.5 10/01/2014 [facility] HEMATOLOGY Eosinophils 0.8 0.0 - 4.0 10/01/2014 [facility] HEMATOLOGY Monocytes 2.7 2.0 - 12.0 10/01/2014 [facility] Basophils 0.5 0.0 - 1.0 10/01/2014 [facility] Segs-Bands # 13.9 1.5 - 8.1 10/01/2014 [facility] Macrocyte 3+ *NA* (10/01/14 3:18 PM) None Seen 10/01/2014 [facility] Basophils # 0.1 0.0 - 0.2 10/01/2014 [facility] Eosinophils # 0.1 0.0 - 0.5 10/01/2014 [facility] WBC 15.2 3.7 - 10.4 10/01/2014 [facility] Hct 35.6 36.0 - 48.0 10/01/2014 [facility] MCHC 33.3 32.0 - 36.0 10/01/2014 [facility] MCV 111.8 80.0 - 98.0 10/01/2014 [facility] RDW 16.5 11.5 - 14.5 10/01/2014 [facility] MCH 37.2 27.0 - 31.0 10/01/2014 [facility] Hgb 11.9 12.0 - 16.0 10/01/2014 [facility] RBC 3.19 4.20 - 5.40 10/01/2014 [facility] MPV 9.3 7.4 - 10.4 10/01/2014 [facility] Platelet 192 133 - 450 10/01/2014 [facility] CHEM PANEL Magnesium Lvl 1.7 1.8 - 2.4 09/24/2014 [facility] CHEM PANEL Globulin 2.8 2.0 - 4.0 09/24/2014 [facility] CHEM PANEL AGAP 10.6 10.0 - 20.0 09/24/2014 [facility] CHEM PANEL B/C Ratio 12 6 - 25 09/24/2014 [facility] CHEM PANEL A/G Ratio 1.3 0.7 - 1.6 09/24/2014 [facility] CHEM PANEL eGFR 79 09/24/2014 <sup>3</sup>Result Comment: The eGFR is calculated using the CKD-EPI formula. In most young, healthy individuals the eGFR will be >90 mL/min/1.73m2. The eGFR declines with age. An eGFR of 60-89 may be normal in some populations, particularly the elderly, for whom the CKD-EPI formula has not been extensively validated. Use of the eGFR is not recommended in the following populations:& lt;br/>
Individuals with unstable creatinine concentrations, including patients and those with serious co-morbid conditions.

Patients with extremes in muscle mass or diet.

The data above are obtained from the National Kidney Disease Education Program (NKDEP) which additionally recommends that when the eGFR is used in patients with extremes of body mass index for purposes of drug dosing, the eGFR should be multiplied by the estimated BMI. [facility] CHEM PANEL Bili Total 0.6 0.2 - 1.3 09/24/2014 [facility] CHEM PANEL Calcium Lvl 9.1 8.5 - 10.5 09/24/2014 [facility] CHEM PANEL Total Protein 6.5 6.4 - 8.4 09/24/2014 [facility] CHEM PANEL Albumin Lvl 3.7 3.5 - 5.0 09/24/2014 [facility] CHEM PANEL ALT 30 0 - 65 09/24/2014 [facility] CHEM PANEL AST 20 0 - 37 09/24/2014 [facility] CHEM PANEL Alk Phos 110 39 - 136 09/24/2014 [facility] CHEM PANEL BUN 10 7 - 22 09/24/2014 [facility] CHEM PANEL Glucose Lvl 77 70 - 99 09/24/2014 <sup>6</sup>Interpretive Data: Adult ref erence range values reflect the clinical guidelines
of the [place] [employer]. [facility] CHEM PANEL CO2 28 24 - 32 09/24/2014 [facility] CHEM PANEL Creatinine Lvl 0.8 0.5 - 1.4 09/24/2014 [facility] CHEM PANEL Chloride Lvl 101 95 - 109 09/24/2014 [facility] CHEM PANEL Potassium Lvl 3.6 3.5 - 5.1 09/24/2014 [facility] CHEM PANEL Sodium Lvl 136 135 - 145 09/24/2014 [facility] HEMATOLOGY Microcyte 1+ *ABN* (09/24/14 2:53 PM) None Seen 09/24/2014 [facility] HEMATOLOGY Promyelocytes 2.0 <=0.0 % 09/24/2014 [facility] Atypical Lymphs 0.0 <=0.0 % 09/24/2014 [facility] Hypochrom 1+ (09/24/14 2:53 PM) None Seen 09/24/2014 [facility] Large Plt Moder ate *ABN* (09/24/14 2:53 PM) None Seen 09/24/2014 [facility] Giant Plt Moder ate *ABN* (09/24/14 2:53 PM) None Seen 09/24/2014 [facility] Metamyelocytes 2.0 0.0 - 1.0 09/24/2014 [facility] Myelocytes 2.0 <=0.0 % 09/24/2014 [facility] Eosinophils 1.0 0.0 - 4.0 09/24/2014 [facility] Basophils 1.0 0.0 - 1.0 09/24/2014 [facility] Anisocyte 1+ *ABN* (09/24/14 2:53 PM) None Seen 09/24/2014 [facility] Lymphocytes 33.0 20.0 - 40.0 09/24/2014 [facility] Monocytes 2.0 2.0 - 12.0 09/24/2014 [facility] Bands 8.0 0.0 - 11.0 09/24/2014 [facility] Monocytes # 0.1 0.0 - 0.8 09/24/2014 [facility] Eosinophils # 0.0 0.0 - 0.5 09/24/2014 [facility] Lymphocytes # 0.9 1.0 - 5.5 09/24/2014 [facility] Basophils # 0.0 0.0 - 0.2 09/24/2014 [facility] Segs 49.0 45.0 - 75.0 09/24/2014 [facility] Segs-Bands # 1.5 1.5 - 8.1 09/24/2014 [facility] MPV 9.3 7.4 - 10.4 09/24/2014 [facility] WBC 2.6 3.7 - 10.4 09/24/2014 [facility] RBC 3.01 4.20 - 5.40 09/24/2014 [facility] RDW 17.1 11.5 - 14.5 09/24/2014 [facility] Platelet 205 133 - 450 09/24/2014 [facility] MCH 36.6 27.0 - 31.0 09/24/2014 [facility] MCHC 33.8 32.0 - 36.0 09/24/2014 [facility] Hct 32.7 36.0 - 48.0 09/24/2014 [facility] Hgb 11.0 12.0 - 16.0 09/24/2014 [facility] MCV 108.5 80.0 - 98.0 09/24/2014 [facility] Plt Morph Nayeli l (09/17/14 1:00 PM) 09/17/2014 [facility] Macrocyte 3+ *NA* (09/17/14 1:00 PM) None Seen 09/17/2014 [facility] RBC Morph Nayeli l (09/10/14 12:45 PM) 09/10/2014 [facility] Large Plt Moder ate *ABN* (09/10/14 12:45 PM) None Seen 09/10/2014 [facility] Metamyelocytes 1.0 0.0 - 1.0 09/10/2014 [facility] Bands 4.0 0.0 - 11.0 09/10/2014 [facility] Myelocytes 3.0 <=0.0 % 09/10/2014 [facility] Atypical Lymphs 1.0 <=0.0 % 09/10/2014 [facility] CHEM PANEL eGFR 93 08/27/2014 <sup>1</sup>Result Comment: The eGFR is calculated using the CKD-EPI formula. In most young, healthy individuals the eGFR will be >90 mL/min/1.73m2. The eGFR declines with age. An eGFR of 60-89 may be normal in some populations, particularly the elderly, for whom the CKD-EPI formula has not been extensively validated. Use of the eGFR is not recommended in the following populations:& lt;br/>
Individuals with unstable creatinine concentrations, including patients and those with serious co-morbid conditions.

Patients with extremes in muscle mass or diet.

The data above are obtained from the National Kidney Disease Education Program (NKDEP) which additionally recommends that when the eGFR is used in patients with extremes of body mass index for purposes of drug dosing, the eGFR should be multiplied by the estimated BMI. [facility] CHEM PANEL AST 19 0 - 37 08/27/2014 [facility] CHEM PANEL Alk Phos 131 39 - 136 08/27/2014 [facility] CHEM PANEL Calcium Lvl 8.9 8.5 - 10.5 08/27/2014 [facility] CHEM PANEL Total Protein 6.8 6.4 - 8.4 08/27/2014 [facility] CHEM PANEL Albumin Lvl 3.6 3.5 - 5.0 08/27/2014 [facility] CHEM PANEL ALT 30 0 - 65 08/27/2014 [facility] CHEM PANEL B/C Ratio 10 6 - 25 08/27/2014 [facility] CHEM PANEL A/G Ratio 1.1 0.7 - 1.6 08/27/2014 [facility] CHEM PANEL Globulin 3.2 2.0 - 4.0 08/27/2014 [facility] CHEM PANEL AGAP 7.8 10.0 - 20.0 08/27/2014 [facility] CHEM PANEL Bili Total 0.4 0.2 - 1.3 08/27/2014 [facility] CHEM PANEL CO2 30 24 - 32 08/27/2014 [facility] CHEM PANEL Creatinine Lvl 0.7 0.5 - 1.4 08/27/2014 [facility] CHEM PANEL Glucose Lvl 88 70 - 99 08/27/2014 <sup>4</sup>Interpretive Data: Adult ref erence range values reflect the clinical guidelines
of the [place] [employer]. [facility] CHEM PANEL BUN 7 7 - 22 08/27/2014 [facility] CHEM PANEL Sodium Lvl 140 135 - 145 08/27/2014 [facility] CHEM PANEL Potassium Lvl 3.8 3.5 - 5.1 08/27/2014 [facility] CHEM PANEL Chloride Lvl 106 95 - 109 08/27/2014 [facility] CHEM PANEL Magnesium Lvl 2.0 1.8 - 2.4 08/27/2014 [facility] HEMATOLOGY MCV 108.1 80.0 - 98.0 08/27/2014 [facility] HEMATOLOGY MCH 36.2 27.0 - 31.0 08/27/2014 [facility] HEMATOLOGY RBC 2.84 4.20 - 5.40 08/27/2014 [facility] HEMATOLOGY Hct 30.7 36.0 - 48.0 08/27/2014 [facility] HEMATOLOGY Hgb 10.3 12.0 - 16.0 08/27/2014 [facility] HEMATOLOGY MCHC 33.5 32.0 - 36.0 08/27/2014 [facility] HEMATOLOGY MPV 9.5 7.4 - 10.4 08/27/2014 [facility] HEMATOLOGY Platelet 227 133 - 450 08/27/2014 [facility] RDW 19.5 11.5 - 14.5 08/27/2014 [facility] WBC 9.6 3.7 - 10.4 08/27/2014 [facility] Segs-Bands # 8.2 1.5 - 8.1 08/27/2014 [facility] Basophils 0.5 0.0 - 1.0 08/27/2014 [facility] Lymphocytes # 0.5 1.0 - 5.5 08/27/2014 [facility] Eosinophils 0.7 0.0 - 4.0 08/27/2014 [facility] Macrocyte 2+ *ABN* (08/27/14 12:00 PM) None Seen 08/27/2014 [facility] Monocytes # 0.7 0.0 - 0.8 08/27/2014 [facility] Eosinophils # 0.1 0.0 - 0.5 08/27/2014 [facility] Monocytes 7.5 2.0 - 12.0 08/27/2014 [facility] Plt Morph Nayeli l (08/27/14 12:00 PM) 08/27/2014 [facility] Segs 85.8 45.0 - 75.0 08/27/2014 [facility] Lymphocytes 5.5 20.0 - 40.0 08/27/2014 [facility] CHEM PANEL eGFR 61 08/20/2014 <sup>2</sup>Result Comment: The eGFR is calculated using the CKD-EPI formula. In most young, healthy individuals the eGFR will be >90 mL/min/1.73m2. The eGFR declines with age. An eGFR of 60-89 may be normal in some populations, particularly the elderly, for whom the CKD-EPI formula has not been extensively validated. Use of the eGFR is not recommended in the following populations:& lt;br/>
Individuals with unstable creatinine concentrations, including patients and those with serious co-morbid conditions.

Patients with extremes in muscle mass or diet.

The data above are obtained from the National Kidney Disease Education Program (NKDEP) which additionally recommends that when the eGFR is used in patients with extremes of body mass index for purposes of drug dosing, the eGFR should be multiplied by the estimated BMI. [facility] CHEM PANEL Chloride Lvl 105 95 - 109 08/20/2014 [facility] CHEM PANEL Calcium Lvl 8.5 8.5 - 10.5 08/20/2014 [facility] CHEM PANEL Creatinine Lvl 1.0 0.5 - 1.4 08/20/2014 [facility] CHEM PANEL Sodium Lvl 140 135 - 145 08/20/2014 [facility] CHEM PANEL Potassium Lvl 4.2 3.5 - 5.1 08/20/2014 [facility] CHEM PANEL Alk Phos 98 39 - 136 08/20/2014 [facility] CHEM PANEL Bili Total 0.4 0.2 - 1.3 08/20/2014 [facility] CHEM PANEL CO2 26 24 - 32 08/20/2014 [facility] CHEM PANEL Total Protein 6.9 6.4 - 8.4 08/20/2014 [facility] CHEM PANEL ALT 30 0 - 65 08/20/2014 [facility] CHEM PANEL Albumin Lvl 3.7 3.5 - 5.0 08/20/2014 [facility] CHEM PANEL AST 20 0 - 37 08/20/2014 [facility] CHEM PANEL BUN 12 7 - 22 08/20/2014 [facility] CHEM PANEL Glucose Lvl 110 70 - 99 08/20/2014 <sup>5</sup>Interpretive Data: Adult ref erence range values reflect the clinical guidelines
of the [place] [employer]. [facility] CHEM PANEL Globulin 3.2 2.0 - 4.0 08/20/2014 [facility] CHEM PANEL A/G Ratio 1.2 0.7 - 1.6 08/20/2014 [facility] CHEM PANEL AGAP 13.2 10.0 - 20.0 08/20/2014 [facility] CHEM PANEL B/C Ratio 12 6 - 25 08/20/2014 [facility] CHEM PANEL Magnesium Lvl 2.0 1.8 - 2.4 08/20/2014 [facility] HEMATOLOGY Plt Morph Nayeli l (08/20/14 11:33 AM) 08/20/2014 [facility] HEMATOLOGY Monocytes 13.3 2.0 - 12.0 08/20/2014 [facility] HEMATOLOGY Eosinophils 3.0 0.0 - 4.0 08/20/2014 [facility] HEMATOLOGY Segs 67.6 45.0 - 75.0 08/20/2014 [facility] HEMATOLOGY Lymphocytes 15.3 20.0 - 40.0 08/20/2014 [facility] HEMATOLOGY Monocytes # 0.3 0.0 - 0.8 08/20/2014 [facility] HEMATOLOGY Lymphocytes # 0.3 1.0 - 5.5 08/20/2014 [facility] Basophils 0.8 0.0 - 1.0 08/20/2014 [facility] Segs-Bands # 1.4 1.5 - 8.1 08/20/2014 [facility] Macrocyte 2+ *ABN* (08/20/14 11:33 AM) None Seen 08/20/2014 [facility] Eosinophils # 0.1 0.0 - 0.5 08/20/2014 [facility] RBC Morph Nayeli l (08/20/14 11:33 AM) 08/20/2014 [facility] RDW 21.1 11.5 - 14.5 08/20/2014 [facility] MPV 9.6 7.4 - 10.4 08/20/2014 [facility] Platelet 274 133 - 450 08/20/2014 [facility] RBC 3.25 4.20 - 5.40 08/20/2014 [facility] WBC 2.0 3.7 - 10.4 08/20/2014 [facility] Hgb 11.8 12.0 - 16.0 08/20/2014 [facility] MCHC 34.0 32.0 - 36.0 08/20/2014 [facility] MCV 106.8 80.0 - 98.0 08/20/2014 [facility] Hct 34.7 36.0 - 48.0 08/20/2014 [facility] MCH 36.3 27.0 - 31.0 08/20/2014 [facility] CHEM PANEL Magnesium Lvl 1.9 1.8 - 2.4 08/18/2014 [facility] CHEM PANEL eGFR 79 08/18/2014 <sup>3</sup>Result Comment: The eGFR is calculated using the CKD-EPI formula. In most young, healthy individuals the eGFR will be >90 mL/min/1.73m2. The eGFR declines with age. An eGFR of 60-89 may be normal in some populations, particularly the elderly, for whom the CKD-EPI formula has not been extensively validated. Use of the eGFR is not recommended in the following populations:& lt;br/>
Individuals with unstable creatinine concentrations, including patients and those with serious co-morbid conditions.

Patients with extremes in muscle mass or diet.

The data above are obtained from the National Kidney Disease Education Program (NKDEP) which additionally recommends that when the eGFR is used in patients with extremes of body mass index for purposes of drug dosing, the eGFR should be multiplied by the estimated BMI. [facility] CHEM PANEL Alk Phos 111 39 - 136 08/18/2014 [facility] CHEM PANEL AST 18 0 - 37 08/18/2014 [facility] CHEM PANEL ALT 31 0 - 65 08/18/2014 [facility] CHEM PANEL Bili Total 0.8 0.2 - 1.3 08/18/2014 [facility] CHEM PANEL Albumin Lvl 4.0 3.5 - 5.0 08/18/2014 [facility] CHEM PANEL Glucose Lvl 108 70 - 99 08/18/2014 <sup>6</sup>Interpretive Data: Adult ref erence range values reflect the clinical guidelines
of the [place] [employer]. [facility] CHEM PANEL Total Protein 6.9 6.4 - 8.4 08/18/2014 [facility] CHEM PANEL Calcium Lvl 8.8 8.5 - 10.5 08/18/2014 [facility] CHEM PANEL CO2 29 24 - 32 08/18/2014 [facility] CHEM PANEL Creatinine Lvl 0.8 0.5 - 1.4 08/18/2014 [facility] CHEM PANEL BUN 7 7 - 22 08/18/2014 [facility] CHEM PANEL Sodium Lvl 141 135 - 145 08/18/2014 [facility] CHEM PANEL Chloride Lvl 105 95 - 109 08/18/2014 [facility] CHEM PANEL Potassium Lvl 4.2 3.5 - 5.1 08/18/2014 [facility] CHEM PANEL AGAP 11.2 10.0 - 20.0 08/18/2014 [facility] CHEM PANEL B/C Ratio 9 6 - 25 08/18/2014 [facility] CHEM PANEL Globulin 2.9 2.0 - 4.0 08/18/2014 [facility] CHEM PANEL A/G Ratio 1.4 0.7 - 1.6 08/18/2014 [facility] HEMATOLOGY Anisocyte 1+ *ABN* (08/18/14 8:09 AM) None Seen 08/18/2014 [facility] HEMATOLOGY Macrocyte 2+ *ABN* (08/18/14 8:09 AM) None Seen 08/18/2014 [facility] HEMATOLOGY Eosinophils # 0.1 0.0 - 0.5 08/18/2014 [facility] HEMATOLOGY Basophils 0.3 0.0 - 1.0 08/18/2014 [facility] HEMATOLOGY Monocytes 2.7 2.0 - 12.0 08/18/2014 [facility] HEMATOLOGY Segs-Bands # 4.4 1.5 - 8.1 08/18/2014 [facility] HEMATOLOGY Lymphocytes 4.2 20.0 - 40.0 08/18/2014 [facility] HEMATOLOGY Eosinophils 1.2 0.0 - 4.0 08/18/2014 [facility] HEMATOLOGY Segs 91.6 45.0 - 75.0 08/18/2014 [facility] Plt Morph Nayeli l (08/18/14 8:09 AM) 08/18/2014 [facility] Monocytes # 0.1 0.0 - 0.8 08/18/2014 [facility] Lymphocytes # 0.2 1.0 - 5.5 08/18/2014 [facility] Hct 34.0 36.0 - 48.0 08/18/2014 [facility] RBC 3.18 4.20 - 5.40 08/18/2014 [facility] Hgb 11.4 12.0 - 16.0 08/18/2014 [facility] WBC 4.8 3.7 - 10.4 08/18/2014 [facility] RDW 21.5 11.5 - 14.5 08/18/2014 [facility] MCHC 33.7 32.0 - 36.0 08/18/2014 [facility] MCH 36.0 27.0 - 31.0 08/18/2014 [facility] MCV 106.8 80.0 - 98.0 08/18/2014 [facility] MPV 8.8 7.4 - 10.4 08/18/2014 [facility] Platelet 252 133 - 450 08/18/2014 [facility] BLOOD BANK RESULTS Antibody Scrn Negative (07/07/14 8:30 AM) 07/07/2014 [facility] BLOOD BANK RESULTS ABO/Rh O POS 07/07/2014 [facility] BLOOD BANK RESULTS RBC product Product available (07/07/14 8:26 AM) 07/07/2014 [facility] CHEM PANEL A/G Ratio 1.1 0.7 - 1.6 06/30/2014 [facility] CHEM PANEL AGAP 8.0 10.0 - 20.0 06/30/2014 [facility] CHEM PANEL Globulin 2.9 2.0 - 4.0 06/30/2014 [facility] CHEM PANEL B/C Ratio 15 6 - 25 06/30/2014 [facility] CHEM PANEL Sodium Lvl 139 135 - 145 06/30/2014 [facility] CHEM PANEL Potassium Lvl 4.0 3.5 - 5.1 06/30/2014 [facility] CHEM PANEL Chloride Lvl 106 95 - 109 06/30/2014 [facility] CHEM PANEL Calcium Lvl 8.7 8.5 - 10.5 06/30/2014 [facility] CHEM PANEL eGFR 98 06/30/2014 <sup>1</sup>Result Comment: The eGFR is calculated using the CKD-EPI formula. In most young, healthy individuals the eGFR will be >90 mL/min/1.73m2. The eGFR declines with age. An eGFR of 60-89 may be normal in some populations, particularly the elderly, for whom the CKD-EPI formula has not been extensively validated. Use of the eGFR is not recommended in the following populations:& lt;br/>
Individuals with unstable creatinine concentrations, including patients and those with serious co-morbid conditions.

Patients with extremes in muscle mass or diet.

The data above are obtained from the National Kidney Disease Education Program (NKDEP) which additionally recommends that when the eGFR is used in patients with extremes of body mass index for purposes of drug dosing, the eGFR should be multiplied by the estimated BMI. [facility] CHEM PANEL Glucose Lvl 99 70 - 99 06/30/2014 <sup>4</sup>Interpretive Data: Adult ref erence range values reflect the clinical guidelines
of the [place] [employer]. [facility] CHEM PANEL CO2 29 24 - 32 06/30/2014 [facility] CHEM PANEL Total Protein 6.2 6.4 - 8.4 06/30/2014 [facility] CHEM PANEL BUN 9 7 - 22 06/30/2014 [facility] CHEM PANEL Creatinine Lvl 0.6 0.5 - 1.4 06/30/2014 [facility] CHEM PANEL ALT 16 0 - 65 06/30/2014 [facility] CHEM PANEL Albumin Lvl 3.3 3.5 - 5.0 06/30/2014 [facility] CHEM PANEL AST 7 0 - 37 06/30/2014 [facility] CHEM PANEL Alk Phos 140 39 - 136 06/30/2014 [facility] CHEM PANEL Bili Total 0.6 0.2 - 1.3 06/30/2014 [facility] CHEM PANEL Magnesium Lvl 1.9 1.8 - 2.4 06/30/2014 [facility] HEMATOLOGY Basophils 0.1 0.0 - 1.0 06/30/2014 [facility] HEMATOLOGY Lymphocytes 1.6 20.0 - 40.0 06/30/2014 [facility] HEMATOLOGY Monocytes 0.6 2.0 - 12.0 06/30/2014 [facility] HEMATOLOGY Eosinophils 0.1 0.0 - 4.0 06/30/2014 [facility] HEMATOLOGY Plt Morph Nayeli l (06/30/14 12:15 PM) 06/30/2014 [facility] HEMATOLOGY RBC Morph Nayeli l (06/30/14 12:15 PM) 06/30/2014 [facility] HEMATOLOGY Segs-Bands # 11.4 1.5 - 8.1 06/30/2014 [facility] Anisocyte 1+ *ABN* (06/30/14 12:15 PM) None Seen 06/30/2014 [facility] HEMATOLOGY Macrocyte 1+ *ABN* (06/30/14 12:15 PM) None Seen 06/30/2014 [facility] Lymphocytes # 0.2 1.0 - 5.5 06/30/2014 [facility] Monocytes # 0.1 0.0 - 0.8 06/30/2014 [facility] Segs 97.6 45.0 - 75.0 06/30/2014 [facility] HEMATOLOGY MPV 9.6 7.4 - 10.4 06/30/2014 [facility] HEMATOLOGY WBC 11.7 3.7 - 10.4 06/30/2014 [facility] RBC 2.56 4.20 - 5.40 06/30/2014 [facility] HEMATOLOGY Hct 26.1 36.0 - 48.0 06/30/2014 [facility] HEMATOLOGY Platelet 88 133 - 450 06/30/2014 [facility] HEMATOLOGY RDW 21.9 11.5 - 14.5 06/30/2014 [facility] Hgb 8.6 12.0 - 16.0 06/30/2014 [facility] HEMATOLOGY MCV 102.1 80.0 - 98.0 06/30/2014 [facility] HEMATOLOGY MCHC 32.8 32.0 - 36.0 06/30/2014 [facility] MCH 33.5 27.0 - 31.0 06/30/2014 [facility] CHEM PANEL Magnesium Lvl 2.1 1.8 - 2.4 06/25/2014 [facility] CHEM PANEL A/G Ratio 1.3 0.7 - 1.6 06/25/2014 [facility] CHEM PANEL B/C Ratio 11 6 - 25 06/25/2014 [facility] CHEM PANEL Globulin 2.9 2.0 - 4.0 06/25/2014 [facility] CHEM PANEL AGAP 3.2 10.0 - 20.0 06/25/2014 [facility] CHEM PANEL eGFR 69 06/25/2014 <sup>2</sup>Result Comment: The eGFR is calculated using the CKD-EPI formula. In most young, healthy individuals the eGFR will be >90 mL/min/1.73m2. The eGFR declines with age. An eGFR of 60-89 may be normal in some populations, particularly the elderly, for whom the CKD-EPI formula has not been extensively validated. Use of the eGFR is not recommended in the following populations:& lt;br/>
Individuals with unstable creatinine concentrations, including patients and those with serious co-morbid conditions.

Patients with extremes in muscle mass or diet.

The data above are obtained from the National Kidney Disease Education Program (NKDEP) which additionally recommends that when the eGFR is used in patients with extremes of body mass index for purposes of drug dosing, the eGFR should be multiplied by the estimated BMI. [facility] CHEM PANEL Chloride Lvl 108 95 - 109 06/25/2014 [facility] CHEM PANEL Potassium Lvl 4.2 3.5 - 5.1 06/25/2014 [facility] CHEM PANEL Calcium Lvl 8.8 8.5 - 10.5 06/25/2014 [facility] CHEM PANEL Creatinine Lvl 0.9 0.5 - 1.4 06/25/2014 [facility] CHEM PANEL Sodium Lvl 138 135 - 145 06/25/2014 [facility] CHEM PANEL Glucose Lvl 96 70 - 99 06/25/2014 <sup>5</sup>Interpretive Data: Adult ref erence range values reflect the clinical guidelines
of the [place] [employer]. [facility] CHEM PANEL CO2 31 24 - 32 06/25/2014 [facility] CHEM PANEL Total Protein 6.6 6.4 - 8.4 06/25/2014 [facility] CHEM PANEL ALT 36 0 - 65 06/25/2014 [facility] CHEM PANEL Albumin Lvl 3.7 3.5 - 5.0 06/25/2014 [facility] CHEM PANEL AST 24 0 - 37 06/25/2014 [facility] CHEM PANEL Alk Phos 122 39 - 136 06/25/2014 [facility] CHEM PANEL BUN 10 7 - 22 06/25/2014 [facility] CHEM PANEL Bili Total 0.4 0.2 - 1.3 06/25/2014 [facility] Hypochrom 1+ (06/25/14 2:30 PM) None Seen 06/25/2014 [facility] Schistocyte 1-3 p er HPF (06/25/14 2:30 PM) None Seen 06/25/2014 [facility] Polychrom Moder ate *ABN* (06/25/14 2:30 PM) None Seen 06/25/2014 [facility] Plt Morph Nayeli l (06/25/14 2:30 PM) 06/25/2014 [facility] Metamyelocytes 3.0 0.0 - 1.0 06/25/2014 [facility] Atypical Lymphs 0.0 <=0.0 % 06/25/2014 [facility] Segs-Bands # 2.1 1.5 - 8.1 06/25/2014 [facility] Monocytes # 0.4 0.0 - 0.8 06/25/2014 [facility] Basophils # 0.0 0.0 - 0.2 06/25/2014 [facility] Lymphocytes # 0.6 1.0 - 5.5 06/25/2014 [facility] Segs 56.0 45.0 - 75.0 06/25/2014 [facility] HEMATOLOGY Bands 10.0 0.0 - 11.0 06/25/2014 [facility] Monocytes 11.0 2.0 - 12.0 06/25/2014 [facility] Lymphocytes 19.0 20.0 - 40.0 06/25/2014 [facility] Basophils 1.0 0.0 - 1.0 06/25/2014 [facility] RDW 20.5 11.5 - 14.5 06/25/2014 [facility] MPV 8.8 7.4 - 10.4 06/25/2014 [facility] Platelet 275 133 - 450 06/25/2014 [facility] Hgb 9.6 12.0 - 16.0 06/25/2014 [facility] MCHC 33.2 32.0 - 36.0 06/25/2014 [facility] RBC 2.86 4.20 - 5.40 06/25/2014 [facility] HEMATOLOGY WBC 3.2 3.7 - 10.4 06/25/2014 [facility] HEMATOLOGY MCH 33.5 27.0 - 31.0 06/25/2014 [facility] HEMATOLOGY Hct 28.9 36.0 - 48.0 06/25/2014 [facility] HEMATOLOGY MCV 101.0 80.0 - 98.0 06/25/2014 [facility] CHEM PANEL Alk Phos 121 39 - 136 06/15/2014 [facility] CHEM PANEL Bili Total 0.3 0.2 - 1.3 06/15/2014 [facility] CHEM PANEL BUN 10 7 - 22 06/15/2014 [facility] CHEM PANEL CO2 30 24 - 32 06/15/2014 [facility] CHEM PANEL Total Protein 6.0 6.4 - 8.4 06/15/2014 [facility] CHEM PANEL AST 20 0 - 37 06/15/2014 [facility] CHEM PANEL ALT 22 0 - 65 06/15/2014 [facility] CHEM PANEL Glucose Lvl 94 70 - 99 06/15/2014 <sup>6</sup>Interpretive Data: Adult ref erence range values reflect the clinical guidelines
of the [place] [employer]. [facility] CHEM PANEL eGFR 79 06/15/2014 <sup>3</sup>Result Comment: The eGFR is calculated using the CKD-EPI formula. In most young, healthy individuals the eGFR will be >90 mL/min/1.73m2. The eGFR declines with age. An eGFR of 60-89 may be normal in some populations, particularly the elderly, for whom the CKD-EPI formula has not been extensively validated. Use of the eGFR is not recommended in the following populations:& lt;br/>
Individuals with unstable creatinine concentrations, including patients and those with serious co-morbid conditions.

Patients with extremes in muscle mass or diet.

The data above are obtained from the National Kidney Disease Education Program (NKDEP) which additionally recommends that when the eGFR is used in patients with extremes of body mass index for purposes of drug dosing, the eGFR should be multiplied by the estimated BMI. [facility] CHEM PANEL Creatinine Lvl 0.8 0.5 - 1.4 06/15/2014 [facility] CHEM PANEL Sodium Lvl 139 135 - 145 06/15/2014 [facility] CHEM PANEL Potassium Lvl 3.9 3.5 - 5.1 06/15/2014 [facility] CHEM PANEL Albumin Lvl 3.3 3.5 - 5.0 06/15/2014 [facility] CHEM PANEL Chloride Lvl 104 95 - 109 06/15/2014 [facility] CHEM PANEL Calcium Lvl 8.7 8.5 - 10.5 06/15/2014 [facility] CHEM PANEL A/G Ratio 1.2 0.7 - 1.6 06/15/2014 [facility] CHEM PANEL AGAP 8.9 10.0 - 20.0 06/15/2014 [facility] CHEM PANEL Globulin 2.7 2.0 - 4.0 06/15/2014 [facility] CHEM PANEL B/C Ratio 12 6 - 25 06/15/2014 [facility] CHEM PANEL Magnesium Lvl 2.0 1.8 - 2.4 06/15/2014 [facility] HEMATOLOGY MCV 95.9 80.0 - 98.0 06/15/2014 [facility] HEMATOLOGY Hct 25.8 36.0 - 48.0 06/15/2014 [facility] HEMATOLOGY RDW 16.1 11.5 - 14.5 06/15/2014 [facility] HEMATOLOGY MCHC 33.1 32.0 - 36.0 06/15/2014 [facility] HEMATOLOGY MCH 31.7 27.0 - 31.0 06/15/2014 [facility] HEMATOLOGY Hgb 8.5 12.0 - 16.0 06/15/2014 [facility] RBC 2.69 4.20 - 5.40 06/15/2014 [facility] WBC 1.1 3.7 - 10.4 06/15/2014 <sup>7</sup>Result Comment: Critical Res ult(s) called to Fortunato SERNA at 06/15/2014 10:54 byab. Read back OK. [facility] HEMATOLOGY Platelet 67 133 - 450 06/15/2014 [facility] HEMATOLOGY MPV 10.0 7.4 - 10.4 06/15/2014 [facility] RBC Morph Nayeli l (06/15/14 10:35 AM) 06/15/2014 [facility] HEMATOLOGY Plt Morph Nayeli l (06/15/14 10:35 AM) 06/15/2014 [facility] HEMATOLOGY Monocytes # 0.2 0.0 - 0.8 06/15/2014 [facility] Lymphocytes # 0.3 1.0 - 5.5 06/15/2014 [facility] HEMATOLOGY Segs-Bands # 0.5 1.5 - 8.1 06/15/2014 [facility] HEMATOLOGY Basophils 1.6 0.0 - 1.0 06/15/2014 [facility] HEMATOLOGY Eosinophils 0.8 0.0 - 4.0 06/15/2014 [facility] HEMATOLOGY Monocytes 23.3 2.0 - 12.0 06/15/2014 [facility] HEMATOLOGY Segs 50.4 45.0 - 75.0 06/15/2014 [facility] Lymphocytes 23.9 20.0 - 40.0 06/15/2014 [facility] RBC Morph Nayeli l (06/03/14 9:53 AM) 06/03/2014 [facility] Tot Cell Ct 100 06/03/2014 [facility] Atypical Lymphs 0.0 <=0.0 % 06/03/2014 [facility] NRBC 1 06/03/2014 [facility] Bands 14.0 0.0 - 11.0 06/03/2014 [facility] CHEM PANEL eGFR 69 05/28/2014 <sup>1</sup>Result Comment: The eGFR is calculated using the CKD-EPI formula. In most young, healthy individuals the eGFR will be >90 mL/min/1.73m2. The eGFR declines with age. An eGFR of 60-89 may be normal in some populations, particularly the elderly, for whom the CKD-EPI formula has not been extensively validated. Use of the eGFR is not recommended in the following populations:& lt;br/>
Individuals with unstable creatinine concentrations, including patients and those with serious co-morbid conditions.

Patients with extremes in muscle mass or diet.

The data above are obtained from the National Kidney Disease Education Program (NKDEP) which additionally recommends that when the eGFR is used in patients with extremes of body mass index for purposes of drug dosing, the eGFR should be multiplied by the estimated BMI. [facility] CHEM PANEL Creatinine Lvl 0.9 0.5 - 1.4 05/28/2014 [facility] CHEM PANEL Sodium Lvl 143 135 - 145 05/28/2014 [facility] CHEM PANEL Potassium Lvl 3.4 3.5 - 5.1 05/28/2014 [facility] CHEM PANEL Calcium Lvl 8.7 8.5 - 10.5 05/28/2014 [facility] CHEM PANEL Chloride Lvl 103 95 - 109 05/28/2014 [facility] CHEM PANEL AST 14 0 - 37 05/28/2014 [facility] CHEM PANEL Alk Phos 126 39 - 136 05/28/2014 [facility] CHEM PANEL ALT 21 0 - 65 05/28/2014 [facility] CHEM PANEL Albumin Lvl 3.4 3.5 - 5.0 05/28/2014 [facility] CHEM PANEL Bili Total 0.2 0.2 - 1.3 05/28/2014 [facility] CHEM PANEL CO2 31 24 - 32 05/28/2014 [facility] CHEM PANEL BUN 12 7 - 22 05/28/2014 [facility] CHEM PANEL Glucose Lvl 86 70 - 99 05/28/2014 <sup>4</sup>Interpretive Data: Adult ref erence range values reflect the clinical guidelines
of the [place] [employer]. [facility] CHEM PANEL Total Protein 6.4 6.4 - 8.4 05/28/2014 [facility] CHEM PANEL A/G Ratio 1.1 0.7 - 1.6 05/28/2014 [facility] CHEM PANEL Globulin 3.0 2.0 - 4.0 05/28/2014 [facility] CHEM PANEL B/C Ratio 13 6 - 25 05/28/2014 [facility] CHEM PANEL AGAP 12.4 10.0 - 20.0 05/28/2014 [facility] CHEM PANEL Magnesium Lvl 1.7 1.8 - 2.4 05/28/2014 [facility] HEMATOLOGY Segs 23.0 45.0 - 75.0 05/28/2014 [facility] HEMATOLOGY Monocytes # 0.5 0.0 - 0.8 05/28/2014 [facility] HEMATOLOGY NRBC 2 05/28/2014 [facility] HEMATOLOGY Atypical Lymphs 0.0 <=0.0 % 05/28/2014 [facility] HEMATOLOGY Tot Cell Ct 100 05/28/2014 [facility] HEMATOLOGY Plt Morph Nayeli l (05/28/14 3:25 PM) 05/28/2014 [facility] HEMATOLOGY Bands 41.0 0.0 - 11.0 05/28/2014 [facility] HEMATOLOGY Lymphocytes 18.0 20.0 - 40.0 05/28/2014 [facility] HEMATOLOGY Myelocytes 8.0 <=0.0 % 05/28/2014 [facility] HEMATOLOGY Monocytes 7.0 2.0 - 12.0 05/28/2014 [facility] HEMATOLOGY Metamyelocytes 3.0 0.0 - 1.0 05/28/2014 [facility] HEMATOLOGY RBC Morph Nayeli l (05/28/14 3:25 PM) 05/28/2014 [facility] Segs-Bands # 4.2 1.5 - 8.1 05/28/2014 [facility] Lymphocytes # 1.2 1.0 - 5.5 05/28/2014 [facility] MCV 95.3 80.0 - 98.0 05/28/2014 [facility] MCHC 32.6 32.0 - 36.0 05/28/2014 [facility] MCH 31.1 27.0 - 31.0 05/28/2014 [facility] RDW 13.8 11.5 - 14.5 05/28/2014 [facility] Platelet 100 133 - 450 05/28/2014 [facility] HEMATOLOGY MPV 9.8 7.4 - 10.4 05/28/2014 [facility] Hct 29.9 36.0 - 48.0 05/28/2014 [facility] RBC 3.14 4.20 - 5.40 05/28/2014 [facility] WBC 6.6 3.7 - 10.4 05/28/2014 [facility] Hgb 9.8 12.0 - 16.0 05/28/2014 [facility] CHEM PANEL Magnesium Lvl 1.9 1.8 - 2.4 05/21/2014 [facility] ELECTROLYTES AGAP 11.0 10.0 - 20.0 05/21/2014 [facility] ELECTROLYTES Globulin 2.6 2.0 - 4.0 05/21/2014 [facility] ELECTROLYTES A/G Ratio 1.2 0.7 - 1.6 05/21/2014 [facility] ELECTROLYTES B/C Ratio 17 6 - 25 05/21/2014 [facility] ELECTROLYTES eGFR 93 05/21/2014 <sup>2</sup>Result Comment: The eGFR is calculated using the CKD-EPI formula. In most young, healthy individuals the eGFR will be >90 mL/min/1.73m2. The eGFR declines with age. An eGFR of 60-89 may be normal in some populations, particularly the elderly, for whom the CKD-EPI formula has not been extensively validated. Use of the eGFR is not recommended in the following populations:& lt;br/>
Individuals with unstable creatinine concentrations, including patients and those with serious co-morbid conditions.

Patients with extremes in muscle mass or diet.

The data above are obtained from the National Kid[employer] Disease Education Program (NKDEP) which additionally recommends that when the eGFR is used in patients with extremes of body mass index for purposes of drug dosing, the eGFR should be multiplied by the estimated BMI. [facility] ELECTROLYTES Chloride Lvl 105 95 - 109 05/21/2014 [facility] ELECTROLYTES Calcium Lvl 8.2 8.5 - 10.5 05/21/2014 [facility] ELECTROLYTES Creatinine Lvl 0.7 0.5 - 1.4 05/21/2014 [facility] ELECTROLYTES Sodium Lvl 141 135 - 145 05/21/2014 [facility] ELECTROLYTES Potassium Lvl 4.0 3.5 - 5.1 05/21/2014 [facility] ELECTROLYTES ALT 19 0 - 65 05/21/2014 [facility] ELECTROLYTES Albumin Lvl 3.1 3.5 - 5.0 05/21/2014 [facility] ELECTROLYTES AST 10 0 - 37 05/21/2014 [facility] ELECTROLYTES Alk Phos 141 39 - 136 05/21/2014 [facility] ELECTROLYTES Bili Total 0.5 0.2 - 1.3 05/21/2014 [facility] ELECTROLYTES BUN 12 7 - 22 05/21/2014 [facility] ELECTROLYTES Total Protein 5.7 6.4 - 8.4 05/21/2014 [facility] ELECTROLYTES CO2 29 24 - 32 05/21/2014 [facility] ELECTROLYTES Glucose Lvl 103 70 - 99 05/21/2014 <sup>5</sup>Interpretive Data: Adult ref erence range values reflect the clinical guidelines
of the [place] [employer]. [facility] Lymphocytes 3.0 20.0 - 40.0 05/21/2014 [facility] Atypical Lymphs 0.0 <=0.0 % 05/21/2014 [facility] Monocytes 0.0 2.0 - 12.0 05/21/2014 [facility] RBC Morph Nayeli l (05/21/14 3:03 PM) 05/21/2014 [facility] HEMATOLOGY Toxic Gran Moder ate *ABN* (05/21/14 3:03 PM) None Seen 05/21/2014 [facility] Plt Morph Nayeli l (05/21/14 3:03 PM) 05/21/2014 [facility] HEMATOLOGY Bands 9.0 0.0 - 11.0 05/21/2014 [facility] Segs 88.0 45.0 - 75.0 05/21/2014 [facility] Monocytes # 0.0 0.0 - 0.8 05/21/2014 [facility] Lymphocytes # 0.6 1.0 - 5.5 05/21/2014 [facility] Segs-Bands # 20.1 1.5 - 8.1 05/21/2014 [facility] RBC 3.28 4.20 - 5.40 05/21/2014 [facility] WBC 20.7 3.7 - 10.4 05/21/2014 [facility] Hgb 10.2 12.0 - 16.0 05/21/2014 [facility] Platelet 164 133 - 450 05/21/2014 [facility] MPV 9.8 7.4 - 10.4 05/21/2014 [facility] MCHC 32.7 32.0 - 36.0 05/21/2014 [facility] RDW 14.7 11.5 - 14.5 05/21/2014 [facility] Hct 31.3 36.0 - 48.0 05/21/2014 [facility] MCV 95.5 80.0 - 98.0 05/21/2014 [facility] MCH 31.2 27.0 - 31.0 05/21/2014 [facility] CHEM PANEL Alk Phos 164 39 - 136 05/12/2014 [facility] CHEM PANEL AST 8 0 - 37 05/12/2014 [facility] CHEM PANEL Bili Total 0.2 0.2 - 1.3 05/12/2014 [facility] CHEM PANEL ALT 24 0 - 65 05/12/2014 [facility] CHEM PANEL Total Protein 6.6 6.4 - 8.4 05/12/2014 [facility] CHEM PANEL eGFR 69 05/12/2014 <sup>3</sup>Result Comment: The eGFR is calculated using the CKD-EPI formula. In most young, healthy individuals the eGFR will be >90 mL/min/1.73m2. The eGFR declines with age. An eGFR of 60-89 may be normal in some populations, particularly the elderly, for whom the CKD-EPI formula has not been extensively validated. Use of the eGFR is not recommended in the following populations:& lt;br/>
Individuals with unstable creatinine concentrations, including patients and those with serious co-morbid conditions.

Patients with extremes in muscle mass or diet.

The data above are obtained from the National Kidney Disease Education Program (NKDEP) which additionally recommends that when the eGFR is used in patients with extremes of body mass index for purposes of drug dosing, the eGFR should be multiplied by the estimated BMI. [facility] CHEM PANEL Calcium Lvl 8.4 8.5 - 10.5 05/12/2014 [facility] CHEM PANEL Albumin Lvl 3.7 3.5 - 5.0 05/12/2014 [facility] CHEM PANEL CO2 29 24 - 32 05/12/2014 [facility] CHEM PANEL Creatinine Lvl 0.9 0.5 - 1.4 05/12/2014 [facility] CHEM PANEL Potassium Lvl 3.5 3.5 - 5.1 05/12/2014 [facility] CHEM PANEL Chloride Lvl 104 95 - 109 05/12/2014 [facility] CHEM PANEL Sodium Lvl 141 135 - 145 05/12/2014 [facility] CHEM PANEL BUN 13 7 - 22 05/12/2014 [facility] CHEM PANEL Glucose Lvl 111 70 - 99 05/12/2014 <sup>6</sup>Interpretive Data: Adult ref erence range values reflect the clinical guidelines
of the [place] [employer]. [facility] CHEM PANEL Globulin 2.9 2.0 - 4.0 05/12/2014 [facility] CHEM PANEL A/G Ratio 1.3 0.7 - 1.6 05/12/2014 [facility] CHEM PANEL B/C Ratio 14 6 - 25 05/12/2014 [facility] CHEM PANEL AGAP 11.5 10.0 - 20.0 05/12/2014 [facility] CHEM PANEL Magnesium Lvl 2.0 1.8 - 2.4 05/12/2014 [facility] HEMATOLOGY Platelet 159 133 - 450 05/12/2014 [facility] HEMATOLOGY RDW 13.5 11.5 - 14.5 05/12/2014 [facility] HEMATOLOGY MPV 10.1 7.4 - 10.4 05/12/2014 [facility] HEMATOLOGY MCH 31.2 27.0 - 31.0 05/12/2014 [facility] HEMATOLOGY MCHC 33.0 32.0 - 36.0 05/12/2014 [facility] HEMATOLOGY RBC 3.73 4.20 - 5.40 05/12/2014 [facility] HEMATOLOGY Hgb 11.7 12.0 - 16.0 05/12/2014 [facility] HEMATOLOGY MCV 94.6 80.0 - 98.0 05/12/2014 [facility] HEMATOLOGY Hct 35.3 36.0 - 48.0 05/12/2014 [facility] HEMATOLOGY WBC 9.5 3.7 - 10.4 05/12/2014 [facility] HEMATOLOGY Monocytes # 0.3 0.0 - 0.8 05/12/2014 [facility] HEMATOLOGY Lymphocytes # 1.1 1.0 - 5.5 05/12/2014 [facility] HEMATOLOGY Segs-Bands # 8.1 1.5 - 8.1 05/12/2014 [facility] HEMATOLOGY Plt Morph Nayeli l (05/12/14 2:31 PM) 05/12/2014 [facility] HEMATOLOGY RBC Morph Nayeli l (05/12/14 2:31 PM) 05/12/2014 [facility] HEMATOLOGY Segs 84.9 45.0 - 75.0 05/12/2014 [facility] HEMATOLOGY Lymphocytes 11.8 20.0 - 40.0 05/12/2014 [facility] HEMATOLOGY Basophils 0.4 0.0 - 1.0 05/12/2014 [facility] HEMATOLOGY Monocytes 2.9 2.0 - 12.0 05/12/2014 [facility] HEMATOLOGY Atypical Lymphs 0.0 <=0.0 % 05/05/2014 [facility] HEMATOLOGY NRBC 1 05/05/2014 [facility] HEMATOLOGY Myelocytes 3.0 <=0.0 % 05/05/2014 [facility] HEMATOLOGY Metamyelocytes 3.0 0.0 - 1.0 05/05/2014 [facility] HEMATOLOGY Bands 14.0 0.0 - 11.0 05/05/2014 [facility] HEMATOLOGY Eosinophils 1.7 0.0 - 4.0 04/29/2014 [facility] HEMATOLOGY Basophils 0.3 0.0 - 1.0 04/29/2014 [facility] HEMATOLOGY Eosinophils # 0.1 0.0 - 0.5 04/29/2014 [facility] CHEM PANEL Globulin 3.1 2.0 - 4.0 04/23/2014 [facility] CHEM PANEL A/G Ratio 1.3 0.7 - 1.6 04/23/2014 [facility] CHEM PANEL B/C Ratio 20 6 - 25 04/23/2014 [facility] CHEM PANEL AGAP 10.2 10.0 - 20.0 04/23/2014 [facility] CHEM PANEL Alk Phos 158 39 - 136 04/23/2014 [facility] CHEM PANEL AST 14 0 - 37 04/23/2014 [facility] CHEM PANEL ALT 19 0 - 65 04/23/2014 [facility] CHEM PANEL Bili Total 0.5 0.2 - 1.3 04/23/2014 [facility] CHEM PANEL Total Protein 7.1 6.4 - 8.4 04/23/2014 [facility] CHEM PANEL Albumin Lvl 4.0 3.5 - 5.0 04/23/2014 [facility] CHEM PANEL eGFR 79 04/23/2014 <sup>1</sup>Result Comment: The eGFR is calculated using the CKD-EPI formula. In most young, healthy individuals the eGFR will be >90 mL/min/1.73m2. The eGFR declines with age. An eGFR of 60-89 may be normal in some populations, particularly the elderly, for whom the CKD-EPI formula has not been extensively validated. Use of the eGFR is not recommended in the following populations:& lt;br/>
Individuals with unstable creatinine concentrations, including patients and those with serious co-morbid conditions.

Patients with extremes in muscle mass or diet.

The data above are obtained from the National Kidney Disease Education Program (NKDEP) which additionally recommends that when the eGFR is used in patients with extremes of body mass index for purposes of drug dosing, the eGFR should be multiplied by the estimated BMI. [facility] CHEM PANEL CO2 30 24 - 32 04/23/2014 [facility] CHEM PANEL Chloride Lvl 104 95 - 109 04/23/2014 [facility] CHEM PANEL Potassium Lvl 4.2 3.5 - 5.1 04/23/2014 [facility] CHEM PANEL Sodium Lvl 140 135 - 145 04/23/2014 [facility] CHEM PANEL Calcium Lvl 8.9 8.5 - 10.5 04/23/2014 [facility] CHEM PANEL Glucose Lvl 74 70 - 99 04/23/2014 <sup>2</sup>Interpretive Data: Adult ref erence range values reflect the clinical guidelines
of the [place] [employer]. [facility] CHEM PANEL Creatinine Lvl 0.8 0.5 - 1.4 04/23/2014 [facility] CHEM PANEL BUN 16 7 - 22 04/23/2014 [facility] CHEM PANEL Magnesium Lvl 2.2 1.8 - 2.4 04/23/2014 [facility] HEMATOLOGY Lymphocytes # 1.8 1.0 - 5.5 04/23/2014 [facility] HEMATOLOGY Segs-Bands # 4.6 1.5 - 8.1 04/23/2014 [facility] HEMATOLOGY Basophils 0.9 0.0 - 1.0 04/23/2014 [facility] HEMATOLOGY Eosinophils # 0.1 0.0 - 0.5 04/23/2014 [facility] Basophils # 0.1 0.0 - 0.2 04/23/2014 [facility] Monocytes 6.4 2.0 - 12.0 04/23/2014 [facility] Lymphocytes 25.7 20.0 - 40.0 04/23/2014 [facility] Eosinophils 1.7 0.0 - 4.0 04/23/2014 [facility] Segs 65.3 45.0 - 75.0 04/23/2014 [facility] Monocytes # 0.5 0.0 - 0.8 04/23/2014 [facility] Platelet 234 133 - 450 04/23/2014 [facility] RDW 13.6 11.5 - 14.5 04/23/2014 [facility] MPV 10.1 7.4 - 10.4 04/23/2014 [facility] MCHC 31.7 32.0 - 36.0 04/23/2014 [facility] MCH 30.1 27.0 - 31.0 04/23/2014 [facility] Hgb 13.1 12.0 - 16.0 04/23/2014 [facility] MCV 95.1 80.0 - 98.0 04/23/2014 [facility] Hct 41.4 36.0 - 48.0 04/23/2014 [facility] WBC 7.1 3.7 - 10.4 04/23/2014 [facility] RBC 4.35 4.20 - 5.40 04/23/2014 [facility] Pathology Reports No Data Provided for This Section Diagnostic Reports Report Value Date Source Chest wo contrast CT Radiation Dose CTDIVOL = 0 (mGy): DLP = 222 (mGy-cm) PROCEDURE INFORMATION: Exam: CT Chest Without Contrast Exam date and time: 02/13/2020 9:12 AM Age: 69 years old Clinical indication: Malignant neoplasm of unspecified site of unspecified female breast; Additional info: /c50.919 TECHNIQUE: Imaging protocol: Computed tomography of the chest without contrast. Radiation optimization: All CT scans at this facility use at least one of these dose optimization techniques: automated exposure control; mA and/or kV adjustment per patient size (includes targeted exams where dose is matched to clinical indication); or iterative reconstruction. COMPARISON: CHEST WO CONTRAST CT 09/10/2019 12:33 PM RADIATION DOSE METRICS: Total DLP (mGy-cm): 222 FINDINGS: Lungs: A calcified granuloma is present in the right upper lobe. A 0.3 cm right lower lobe pulmonary nodule (series 4, image 133) is not significantly changed. A 0.7 cm right lower lobe nodule (series 4, image 108) is not significantly changed. A 0.4 cm right lower lobe nodule (series 4, image 109) is stable. A 0.5 cm right lower lobe ground-glass nod ule (series 4, image 94) is stable. A 0.5 cm left lower lobe nodule (series 4, image 145) appears stable. A 0.3 cm left lower lobe nodule (series 4, image 109) appears stable. No new pulmonary nodules are seen. Pleural space: Unremarkable. No pneumothorax. No pleural effusion. Heart: The heart is normal in size. No pericardial effusion. Atherosclerotic calcification is seen in the left anterior descending coronary artery. Aorta: Unremarkable. No aortic aneurysm. Lymph nodes: No mediastinal or axillary lymphadenopathy. Evaluation of hilar lymph nodes is limited without intravenous contrast. Calcified small mediastinal and right hilar lymph nodes may represent sequelae of prior granulomatous infection. Gallbladder and bile ducts: The gallbladder is surgically absent. Bones/joints: Multifocal sclerotic changes at T7 through T9 and L2-L3 are not significantly changed. Sclerotic changes are also partially visualized in the cervical spine at the C5-C6 endplates. Soft tissues: Bilateral breast implants are present. IMPRESSION: 1. Scattered bilateral pulmonary nodules are not significantly changed. 2. Sclerotic changes in the spine appear similar to the prior exam. Differential considerations include chronic degenerative changes versus treated metastatic disease. Stephanie Davis MD On 02/13/2020 11:48:02; [id number] 02/13/2020 [facility] Bone Density Scan PROCEDURE IN FORMATION: Exam: XR DXA Bone Density, Axial Skeleton Exam date and time: 02/13/2020 9:53 AM Age: 69 years old Clinical indication: /z78.0- asymptomatic menopausal state. Breast carcinoma. Post treatment. TECHNIQUE: Imaging protocol: Dual energy x-ray absorptiometry performed. Bone mineral density analysis of the lumbar spine and the femoral neck or total hip. Readings are compared with gender matched average of normal, and with age, weight and ethnic origin (Z score) and with healthy young adults (T score). COMPARISON: DEXA scan 02/11/2019. FINDINGS: DXA Scanner make and model: Horizon W ([id number]) Lumbar spine: Bone mineral density of the lumbar spine is 1.217 g/cm? (previously 1.153). T score is 1.5. Z sc ore is 3.5. The bone mineral density is normal. Total Hip: Bone mineral density of the left hip is 0.824 g/cm? (previously 0.836). T score is -1.0. Z score is 0.4. The bone mineral density is compatible with osteopenia. Femoral neck: Bone mineral density of the left femoral neck is 0.712 g/cm? (previously 0.73). T score is -1.2. Z sc ore is 0.5. The bone mineral density is compatible with osteopenia. FRAX 10 Year Risk Major Osteoporotic Fracture %: 7.4% without prior fracture; 12% with prior fracture. FRAX 10 Year Risk Hip Fracture %: 0.9% without prior fracture; 1.4% with prior fracture. IMPRESSION: 1. Normal bone density of the lumbosacra l spine with no increased risk for fracture. Overall 5.3% increased lumbar bone density since 2019. 2. Osteopenia of the left hip and femora l neck. Roughly 2.5% decrease bone density in the left femoral neck and 1.4 % decrease in total left hip bone density since 2019. COMMENTS: World Health Organization Guidelines: Normal bone mineral density is T-score at or above -1. Osteopenia is T-score between -1 and -2.5. Osteoporosis is T-score of -2.5 or below. Severe osteoporosis is T-score of -2.5 or below with fracture(s). Jovan Taylor MD On 02/13/2020 13:44:25; [id number] 02/13/2020 [facility] Breast Mammo Scrn [facility] w elliott incl CAD MA BILATERAL DIGITAL SCREENING MAMMOGRAM 3D/2D WITH CAD: 02/13/2020 CLINICAL: /Routine. Current study was evaluated with a Computer Aided Detection (CAD) system. COMPARISON:Comparison is made to exams dated: 02/11/2019 mammogram, 02/07/2018 mammogram - [facility], 12/20/2016 mammogram, 06/05/2016 mammogram, 01/25/2016 mammogram - [facility], and 08/25/2015 mammogram - [facility]. Current study contains 8 films. TECHNIQUE: Digital Breast Tomosynthesis was performed and utilized for Interpretation. Meditecha Version 1.3 was utilized for computer aided detection. FINDINGS: The tissue of both breasts is heterogeneously dense, which could obscure detection of small masses. Bilateral retropectoral silicone implants are stable and intact and have a smooth contour with continuous vanegas. There is a stable benign appearing nodule in the left breast. There also is a post surgical scar with architectural distortion in the right breast in the posterior depth in the upper outer quadrant that is not significantly changed and less defined and correlates with surgical site and breast marker. Additionally, there are two stable biopsy clips in the right breast. There is a 6 mm round nodule with a circumscribed margin in the left breast at 7 o'clock anterior depth 6 cm from the nipple. This is decreased in size and correlates with the prior exam. No other significant masses, calcifications, or other findings are seen in either breast. IMPRESSION: BENIGN RECOMMENDATION:The 6 mm round nodule in the left breast most likely is a cyst and is benign. There is no mammographic evidence of malignancy. A 1 year screening mammogram is recommended.(02/13/2021) This exam was interpreted at [id number] for [facility] [place]. Willard Strauss sns/vee:02/13/2020 10:40:37 Moisture Meter Reader(s): Heydi Bowens, [facility] letter sent: BI-RADS 1/2 Dense Mammogram BI-RADS: 2 Benign 02/13/2020 [facility] wo contrast CT Radiation Dose CTDIVOL = 0 (mGy): DLP = 133.3 (mGy-cm) PROCEDURE INFORMATION: Exam: CT Chest Without Contrast Exam date and time: 09/10/2019 12:33 PM Age: 68 years old Clinical indication: Malignant neoplasm of unspecified site of unspecified female breast; Additional info: /follow-up for spots on lungs, HX of breast cancer TECHNIQUE: Imaging protocol: Computed tomography of the chest without contrast. Total DLP: 133.3 mGy-cm Radiation optimization: All CT scans at this facility use at least one of these dose optimization techniques: automated exposure control; mA and/or kV adjustment per patient size (includes targeted exams where dose is matched to clinical indication); or iterative reconstruction. COMPARISON: CHEST/ABDOMEN WO CONTRAST CT 03/14/2019 11:48 AM FINDINGS: Lungs: Right upper lobe calcified granuloma. Mild areas of scattered atelectasis. Subpleural reticulation in the right anterior chest may represent area of fibrosis. There is a small ground-glass nodule in the right middle lobe image 133 measuring 5 mm, likely unchanged given differences in slice selection.. Small nodule in the right lower lobe on image 152 measures 5 mm similar previous study. There is a 7 mm nodule in the right lower lobe on image 148 unchanged from previous study. A 4 m m nodule left lower lobe image 221 is unchanged. 2 mm nodule image 176 is unchanged. 4 mm nodule image 163 is unchanged. The nodules are similar to perform study in 2019 but were not identified on study of 2014. Pleural space: Unremarkable. No pneumothorax. No pleural effusion. Heart: Coronary calcifications identified in the LAD. Aorta: Unremarkable. No aortic aneurysm. Lymph nodes: Unremarkable. No enlarged lymph nodes. Gallbladder and bile ducts: Cholecystectomy. Bones/joints: Extensive sclerotic changes identified about the T8-T9, T9-T10 and to lesser. T10-T11 levels. There is also prominent sclerotic changes along the endplates of the L2-L3 level. Sclerotic disease is similar previous study. Soft tissues: Bilateral breast prostheses. There is a small hypodense fluid collection along the inferomedial aspect of the right breast prosthesis. Small irregular opacity in the right breast superiorly is unchanged. IMPRESSION: 1. Numerous bilateral pulmonary nodules, similar to previous study. Recommend continued follow-up imaging. 2. Small amount of leeann-implant fluid in the right breast. Correlate with follow-up breast ultrasound and mammogram if indicated. 3. Extensive areas of sclerosis in the m idthoracic spine and upper lumbar spine. This is similar to previous study, progressed from 2015 . Appearance is likely chronic degenerative versus treated metastatic disease. Suggest attention on follow-up imaging and consider follow-up bone scan. 4. Coronary atherosclerosis. Pratik Parekh MD On 09/10/2019 14:37:16; [id number] 09/10/2019 [facility] Chest/Abdomen wo IV contrast CT Study: CT CHEST AND ABDOMEN WITHOUT CONTRAST Clinical Indication: - follow-up to breast cancer; metastatic evaluation Comparison: CT abdomen pelvis 04/16/2017 Technique: Axial images with sagittal and coronal reconstructions were obtained following intestinal contrast only. CT imaging performed at this location utilizes radiation dose optimization techniques which include one or more of the following: -Automated exposure control -Adjustment of the mA and/or kV accordin g to patient size -Use of iterative reconstruction technVigoda ue CT Radiation Dose DLP 306 mGy-cm FINDINGS: CT CHEST: The lungs are emphysematous with mild interstitial scarring. Calcified right upper lobe granuloma is noted. 2 tiny benign-appearing right lower lobe densities are noted on series 3 image 64, largest measuring 7 mm. There are minor coronary artery calcifications. No gross hilar or mediastinal adenopathy is identified. No pleural or pericardial effusion is seen. Bilateral breast reconstruction is noted. CT ABDOMEN: The unenhanced liver is grossly unremarkable. Cholecystectomy has been performed. Common duct is not dilated. The spleen is normal in size and contains small calcific granulomas. The unenhanced kidneys, adrenals and pancreas are normal. There is a moderate amount of fecal material within the colon. No gross intestinal lesion is identified. There is moderate atherosclerosis and spondylosis. No definite skeletal metastatic lesion is identified. No adenopathy or ascites is seen. IMPRESSION: 1. No metastatic disease 2. 2 subcentimeter benign-appearing righ t lower lobe densities. 3. Cholecystectomy. 4. Moderate amount of colonic fecal mate rial. SL: [id number] 03/14/2019 [facility] Bone scan [place] Clinical Indicati on: - C50.911 Malignant neoplasm of unspecified site of right female breast; Comparison: CT chest abdomen of 03/14/2019. TECHNIQUE: Total body bone scan is performed using 26 mCi of technetium 99m-MDP. FINDINGS: Whole body delayed images are obtained. There is expected distribution of the radiotracer to the skeleton. Focal radiotracer uptake is present within the mid thoracic spine and lumbar spine about the L2-L3 level likely degenerative in etiology as seen on concurrent CT chest and abdomen. No definite corresponding sclerotic lesion detected. There are no abnormal foci of radiotracer activity to suggest metastatic disease or fracture with unremarkable appearing skull spine ribs pelvis and visualized extremities. Normal soft tissue and renal activity is noted. Normal bladder activity is seen. IMPRESSION: 1. Focal radiotracer uptake is present w ithin the mid thoracic spine and lumbar spine about the L2-L3 level likely degenerative in etiology as seen on concurrent CT chest and abdomen. No definite corresponding sclerotic lesion detected. 2. No convincing evidence of metastatic disease detected. SL: [id number] 03/14/2019 [facility] Breast Mammo Scrn [facility] w [facility]iott incl CAD MA BILATERAL DIGITAL SCREENING MAMMOGRAM 3D/2D WITH CAD: 02/11/2019 CLINICAL: Routine screening Z12.31. Current study was evaluated with a Computer Aided Detection (CAD) system. COMPARISON:Comparison is made to exams dated: 02/07/2018 mammogram - [facility], 12/20/2016 mammogram, 06/05/2016 mammogram, 01/25/2016 mammogram - [facility], 08/25/2015 mammogram, and 01/25/2015 mammogram - [facility]. TECHNIQUE: Digital Breast Tomosynthesis was performed and utilized for Interpretation. ADR Software Version 1.3 was utilized for computer aided detection. FINDINGS: There are scattered fibroglandular densities in both breasts. The patient is status post lumpectomy right breast. There are post operative and radiation changes in the right breast. Bilateral breast implants are stable. There is a stable benign appearing nodule in the left breast. There also are biopsy clips in the right breast. No significant masses, calcifications, or other findings are seen in either breast. There has been no significant interval change. IMPRESSION: BENIGN RECOMMENDATION:The patient is status post lumpectomy right breast. There is no mammographic evidence of malignancy. A 1 year screening mammogram is recommended.(02/12/2020) This exam was interpreted at [id number] for [facility] [facility]. Jarvis wright/penrad:02/11/2019 08:46:53 Moisture Meter Reader(s): Dahlia Davis [facility] letter sent: BI-RADS 1/2 Mammogram BI-RADS: 2 Benign 02/11/2019 [facility] Bone Density Scan BONE DENSITY : HISTORY: Breast carcinoma, post treatment. TECHNIQUE: Dual energy x-ray absorptiometry (DEXA) was done over the lumbar spine and left hip on a Tivix W scanner. FINDINGS: The total T-score over the lumbar spine is 1.0, consistent with normal bone density. The previous T-score on 08/12/2018 was 0.8, consistent with normal bone density. There has been a 1.9% increase in BMD since the last exam. The global T-score over the left hip is -0.9, consistent with normal bone density. The previous T-score was -0.5, consistent with normal bone density. There has been a 4.5% decrease in BMD since the last exam. The focal T-score over the left femoral neck is -1.1, consistent with osteopenia. The BMD is 0.730 g/sq cm. The previous T-score over the left femoral neck was -0.5, consistent with normal bone density, with a previous BMD of 0.794 g/sq cm. IMPRESSION: 1. Normal bone density of the lumbar spi ne. 2. Normal global bone density of the lef t hip. 3. Osteopenia of the left femoral neck. FRAX 10-year Fracture Risk Major Osteoporotic Fracture: Without prior fracture 7.3%, With prior fracture 12% Hip Fracture: Without prior fracture 0.7%, With prior fracture 1.2% FOR YOUR INFORMATION: The World Health Organization has established that OSTEOPOROSIS occurs at -2.5 or more standard deviations (T-score) below peak bone mass (T-score on the Hologic report). OSTEOPENIA occurs at -1.0 to -2.5 standard deviations (T-score) below peak bone mass. [id number] 02/11/2019 [facility] w contrast MRI EXAM: MR arthrogram of the right shoulder INDICATION: S/P ARTHOGRAM - M75.41 CARACOID IMPINGEMENT OF RT SHOULDER COMPARISON: None. TECHNIQUE: Multiplanar, multisequence magnetic resonance imaging of the right shoulder was performed following the intra-articular administration of gadolinium contrast. FINDINGS: Glenohumeral joint: Negative for acute bony fracture or joint dislocation. Intra-articular contrast distends the glenohumeral joint. No labral tear is seen. Glenohumeral ligaments are intact. There is no high-grade chondral defect of the humeral head or glenoid fossa. Mild subcortical cystic changes throughout the posterolateral humeral head and greater tuberosity are seen. Osseous acromion complex: The acromion is type II in morphology and shows horizontal orientation without significant narrowing of the supraspinatus outlet. No os acromiale is seen. There is mild AC joint osteoarthrosis with mild chondral thinning, synovitis, and periarticular cystic change in the distal clavicle. Rotator cuff tendons: Mild supraspinatus tendinosis is seen with scattered low- grade interstitial partial-thickness tears of the distal tendon at the footprint. Subscapularis, infraspinatus, and teres minor tendons are intact. Coracohumeral interval measures 9 mm AP dimension. Biceps tendon: Intact and without subluxation or dislocation. Soft tissues: No extracapsular mass or cystic fluid collection is seen. No muscular atrophy or denervation edema is present. IMPRESSION: 1. Mild supraspinatus tendinosis with sc attered low-grade interstitial partial- thickness tears of the distal tendon at the footprint. 2. No definitive evidence of subcoracoid impingement. 3. Negative for labral tear. 4. Mild AC joint osteoarthrosis. SL: [id number] 11/13/2018 [facility] Shoulder arthrogram DX Patient Name: JAQUAN HERNANDEZ : 1950; Age: 68 years Female MR: [id number] Study: Shoulder arthrogram DX 11/13/2018 12:41 CDT Clinical Indication: - M75.41 Impingement syndrome of right shoulder. COMPARISON: None EXAM: FLUOROSCOPY-GUIDED RIGHT SHOULDER INJECTION FOR MR ARTHROGRAM CONSENT: The patient denied any drug allergies. The patient denied intake of any blood thinners, including Plavix, aspirin and warfarin. The risks and benefits of the procedure, the risk of doing nothing, as well as alternative therapies were explained to the patient. The patient was then allowed to ask questions. The patient stated understanding and agreed to proceed. It is my judgment the patient does understand the treatment plan. REFERENCE AIR KERMA: 1 mGy Fluoroscopy time: 8 seconds TECHNIQUE: Appropriate time out procedures were performed. The skin was prepped and draped in the usual fashion under aseptic precautions. 1% lidocaine was utilized for local anesthesia. Under fluoroscopic guidance a 22 gauge long spinal needle was used to access the shoulder joint. 8 mL of a mixture of 0.1 mL gadolinium w ith 20 mL of normal saline combination were drawn into a 30 mL syringe and injected into the shoulder joint. Omnipaque cannot be used for guidance secondary to the patient's iodine ALLERGY. No immediate complications. IMPRESSION: Technically successful fluoroscopy-guided shoulder injection for arthrogram. SL: [id number] 11/13/2018 [facility] Esophagus BA swallow function video DX Patient Name: JAQUAN HERNANDEZ : 1950; Age: 68 years Female MR: [id number] Study: Esophagus BA swallow function video DX Order Time: 10/25/2018 9:41 CDT Clinical Indication: - R13.10 Dysphagia, unspecified. COMPARISON: None. REFERENCE AIR KERMA: 1.55 mGy Fluoroscopy time: 0.5 minutes TECHNIQUE: Fluoroscopic assistance was provided for the speech pathologist for modified barium swallow examination. Varying consistencies of barium were administered po. FINDINGS: Thin consistency barium: No aspiration or any significant laryngeal penetration. [place] consistency barium: No aspiration or any significant laryngeal penetration. Pudding coated barium: No aspiration or any significant laryngeal penetration. Barium with cracker preparation: No aspiration or any significant laryngeal penetration. IMPRESSION: Normal modified swallow. SL: [id number] 10/25/2018 [facility] Bone Density Scan Study: Bone Density Scan Clinical Indication: Osteoporosis screening, history of breast cancer with aromatase inhibitor use; Images of the axial lumbar spine and left hip have been performed using [employer] Discovery SL scanner. COMPARISON: None FINDINGS: The left hip bone mineral density is 93% of the peak reference bone mass with a T-score of -0.5. Left hip BMD is 0.875 g/cm2. Left femoral neck BMD is 0.794 g/cm2 and T-score of -0.5. The axial lumbar bone mineral density is 108% of the peak reference bone mass with a T-score 0.8. Axial lumbar average BMD is 1.131 g/cm2. IMPRESSION: 1. Normal bone mineral density of the le ft femoral neck. 2. Normal bone mineral density of the to leela left hip. 3. Normal bone mineral density of the aleksandr mbar spine. The World Health Organization has established that OSTEOPOROSIS occurs at -2.5 or more standard deviations (SD) below peak bone mass (T-score on the Hologic report). OSTEOPENIA (low bone mass) occurs at greater than -1.0 standard deviations to -2.5 standard deviations below peak bone mass. SL: [id number] 08/12/2018 [facility] Breast Complete Uni US COMPLETE ULTRASOUND OF RIGHT BREAST AND AXILLA: 02/07/2018 CLINICAL: /Pain. COMPARISON:Comparison is made to exams dated: 02/07/2018 mammogram - [facility] and 12/20/2016 ultrasound - [facility]. TECHNIQUE: Color flow and real-time ultrasound of the right breast four quadrants, retroareolar, and axilla regions were performed. Lees scale images of the real-time examination were reviewed. FINDINGS: There is a stable benign irregular shaped homogeneous hypoechoic scar with posterior shadowing at the surgical site in the right breast at 12 o'clock that is not significantly changed from prior ultrasound and correlates with previous biopsy site. No abnormalities were seen sonographically in the right axilla. IMPRESSION: BENIGN RECOMMENDATION:There is no sonographic evidence of malignancy. Old surgical scar seen at 12 o'clock is stable. Implants stable. A 1 year screening mammogram is recommended.(02/08/2019) This exam was interpreted at [id number] for [facility] [place]. Willard Strauss sns/:02/07/2018 16:09:19 Moisture Meter Reader(s): Monique Gillis, [facility] letter sent: BI-RADS 1/2 Ultrasound BI-RADS: 2 Benign 02/07/2018 [facility] Breast Mammo Diag [place] incl CAD MA BILATERAL DIGITAL DIAGNOSTIC MAMMOGRAM WITH CAD: 02/07/2018 Current study was evaluated with a Computer Aided Detection (CAD) system. COMPARISON:Comparison is made to exams dated: 12/20/2016 mammogram, 06/05/2016 mammogram, 01/25/2016 mammogram - [facility], 08/25/2015 mammogram, 01/25/2015 mammogram - [facility], and 02/18/2014 mammogram - [facility]. Current study contains 11 films. TECHNIQUE: Mammographic views were obtained using digital acquisition. Meditecha Version 1.3 was utilized for computer aided detection. FINDINGS: There are scattered fibroglandular densities in both breasts. Bilateral breast implants are intact. There is a stable 1.5 cm benign appearing nodule in the left breast in the lower outer quadrant that is not significantly changed. There also are post operative findings and a biopsy clip in the right breast. Additionally, there are post operative findings in the left breast. No significant masses, calcifications, or other findings are seen in either breast. IMPRESSION: BENIGN RECOMMENDATION:There is no mammographic evidence of malignancy. A 1 year screening mammogram is recommended.(02/08/2019) This exam was interpreted at [id number] for [facility] [place]. Willard tSrauss sns/:02/07/2018 14:25:25 Moisture Meter Reader(s): Brina Hurd, [facility] letter sent: BI-RADS 1/2 Mammogram BI-RADS: 2 Benign 02/07/2018 [facility] Spine cervical wo contrast MRI Study: Spine cervical wo contrast MRI Clinical Indication: Tech:Eric Potts - Cervicalgia. Patient states she has a nervous tick which causes substantial right sided neck pain and stiffness. Symptoms are new onset and have persisted over the past 6 months. History of Breast CA in 2013. Comparison: None TECHNIQUE: Multiplanar, multisequence magnetic resonance imaging of the cervical spine was performed without the administration of intravenous gadolinium contrast. FINDINGS: There is grade 1 retrolisthesis of C4 over C5 by 2 mm. Grade 1 retrolisthesis of C5 over C6 by 3 mm is also seen. No focal marrow signal abnormality is present. The prevertebral soft tissues, atlanto-dental interspace, and craniocervical junction are within normal limits. The visualized brainstem region is unremarkable. The cervical spinal cord is normal in size and signal. The discs are desiccated throughout the cervical spine. Moderate-severe multilevel disc height loss from C3-C4 through C6-C7 is seen with Modic type III degenerative endplate change about C5-C6. Mild disc height loss at C2-C3 is also present. DISC SPACES: C2-C3: No significant disc bulge or protrusion is seen. The facets are intact. There is no spinal canal stenosis or neural foraminal narrowing. C3-C4: Moderate-sized asymmetric, circumferential disc osteophyte complex is seen, eccentric to the left. Facets are intact. There is severe left neural foraminal narrowing without spinal canal stenosis. C4-C5: Moderate to large circumferential disc osteophyte complex is seen, producing mild anterior thecal sac effacement. Facets are intact. There is moderate-severe spinal canal stenosis with the thecal sac measuring 7.5 mm AP dimension. Severe bilateral neural foraminal narrowing is present. C5-C6: Large circumferential disc osteophyte complex is seen, producing mild anterior thecal sac effacement. Facets are intact. There is mild spinal canal stenosis with the thecal sac measuring 9.5 mm AP dimension. Severe bilateral neural foraminal narrowing, left greater than right, is present. C6-C7: Small circumferential disc osteophyte complex is seen. Facets are intact. There is no spinal canal stenosis. Mild to moderate bilateral neural foraminal narrowing is present. C7-T1: Small 1 mm diffuse disc bulge is seen. Mild facet arthrosis is noted. There is no spinal canal stenosis or neural foraminal narrowing. IMPRESSION: 1. Multilevel degenerative changes of th e cervical spine with severe left neural foraminal narrowing at C3-C4. 2. C4-C5 moderate-severe spinal canal st enosis with severe bilateral neural foraminal narrowing. 3. C5-C6 mild spinal canal stenosis with severe left neural foraminal narrowing. 4. C6-C7 mild to moderate bilateral neur al foraminal narrowing. SL: [id number] 10/21/2017 [facility] Brain wo contrast MRI Patient Name: JAQUAN HERNANDEZ : 1950; Age: 66 years Female MR: [id number] Study: Brain wo contrast MRI 06/10/2017 7:08 AM [employer] Clinical Indication: G31.84 Mild cognitive impairment, so stated,R26.2 Difficulty in walking, not elsewhere classified - Patient complained of memory loss. COMPARISON: Magnetic resonance imaging 12/26/2013. TECHNIQUE: MRI of the brain is performed without gadolinium contrast. Multiplanar T1, T2, FLAIR and diffusion weighted imaging are submitted. Full and complete exam was performed. FINDINGS: BRAIN PARENCHYMA: There is mild generalized cortical atrophy. Stable to slight progression of underlying periventricular white matter foci of increased T2 and FLAIR signal. There is no mass effect or midline shift. There are no extra-axial fluid collections. The corpus callosum appears normal. There is no diffusion weighted imaging or ADC map abnormality to suggest acute/subacute ischemia. There is no magnetic susceptibility to suggest recent or remote intracranial hemorrhage. CEREBELLOPONTINE REGIONS AND SKULL BASE: The cerebellopontine angles appear normal. The skull base, craniocervical junction, and brainstem are normal. The optic chiasm is normal. The sella and pineal regions are normal. VENTRICLES: The ventricles are normal in size and configuration. The basilar cisterns are normal. VESSELS: The expected intracranial flow voids are present. ORBITS, VISUALIZED PARANASAL SINUSES AND MASTOIDS: The visualized orbits are normal. The paranasal sinuses are normal. The mastoid air cells are clear. IMPRESSION: 1. No acute intracranial abnormality wi thout acute stroke, hemorrhage or mass. 2. Stable to slight progression of unde rlying white matter disease disease. SL: [id number] 06/10/2017 [facility] Abdomen/Pelvis wo IV contrast CT EXAM: CT ABDOMEN AND PELVIS WITHOUT CONTRAST DATE: 04/16/2017 11:31 AM CDT INDICATION: - K43.9 Ventral hernia without obstruction or gangrene ADDITIONAL INFORMATION: None. COMPARISON: 04/06/2016 TECHNIQUE: Volumetric CT acquisition of the abdomen and pelvis without the intravenous administration contrast. Axial, coronal and sagittal reconstructions. Oral contrast: Omni mix CT Radiation Dose DLP 776 mGy-cm AEC, mA/kV adjustment by patient size, and/or iterative reconstruction technique were used, per departmental dose-optimization program. FINDINGS: Lines and tubes: None. Lower thorax: Unremarkable. Evaluation of the solid organs is limited by lack of intravenous contrast. Liver and biliary tree: The liver is mildly steatotic. Gallbladder: Surgically absent. Pancreas: Normal. Spleen: Normal. Adrenals: Normal. Kidneys and ureters: Normal. No hydronephrosis. Bladder: Decompressed Reproductive organs: The uterus is surgically absent. The adnexal regions are unremarkable. Gastrointestinal tract: There is extensive sigmoid diverticulosis. Appendix: Not visualized. Peritoneum and retroperitoneum: No ascites or free air. Lymph nodes: No pathologic adenopathy. Vasculature: There are scattered vascular calcifications throughout the aorta and iliac arteries. Bones: No acute abnormality. Severe degenerative changes are again seen L4-L5. Soft tissues: Unremarkable. No hernia is identified. IMPRESSION: 1. Mild hepatic steatosis. 2. Cholecystectomy. 3. Extensive sigmoid diverticulosis. 4. Hysterectomy. 04/16/2017 [facility] [place] Breast Complete Uni US - BREAS T COMPLETE UNI US/R ULTRASOUND OF RIGHT BREAST AND RIGHT AXILLA: 12/20/2016 CLINICAL: Z85.3 Personal History Of Malignant Neoplasm Of Breast/Z85.3 Personal History Of Malignant Neoplasm Of Breast. Comparison is made to exams dated: 12/20/2016 mammogram, 06/14/2016 ultrasound biopsy, 06/05/2016 ultrasound, 06/05/2016 mammogram, 01/25/2016 ultrasound and 01/25/2016 mammogram - [facility]. Color flow and real-time ultrasound of the right breast and axilla were performed. There is a benign 1.3 cm area in the right breast at 4 o'clock middle depth 8 cm from the nipple. This area is of mixed echogenicity. This abnormality is decreased in size. Previous ultrasound guided biopsy showed fat necrosis. There also is a benign 5 mm oval area in the right breast at 2 o'clock middle depth 3 cm from the nipple. This oval area is hypoechoic with posterior acoustic shadowing. This abnormality is decreased in size. There is an associated biopsy clip. Previous biopsy of this area yielded benign results. Additionally, there is a benign irregular post surgical scar in the right breast at 12 o'clock posterior depth 6 cm from the nipple. This irregular post surgical scar is hypoechoic. This abnormality is less prominent. Bilateral implants are noted and are intact by ultrasound. The patient refers non-focal, regional pain in the upper right breast. There is no sonographic correlation. No abnormalities were seen sonographically in the right axilla. IMPRESSION: BENIGN - FOLLOW-UP RECOMMENDED Clinical management of the patient's pain is recommended. There is no sonographic evidence of malignancy. The 1.3 cm area in the right breast at 4 o'clock middle depth is consistent with fat necrosis and is benign. The 5 mm oval area in the right breast at 2 o'clock middle depth is benign. The irregular post surgical scar in the right breast at 12 o'clock posterior depth is benign. A follow-up mammogram in 12 months is recommended. SUMMARY: These findings were discussed with the patient at the time of examination. Derrick Bojorquez M.D. hh/:12/20/2016 15:17:32 copy to: Diony Emery MD, ph: Moisture Meter Reader: Yusra Flor, [facility] This exam was dictated and interpreted by [id number] for [facility]. letter sent: Normal [place] Ultrasound BI-RADS: 2 Benign 12/20/2016 [facility] Breast Mammo Diag [place] incl CAD MA - BREAST MAMMO DIAG [place] INCL CAD MA BILATERAL DIGITAL DIAGNOSTIC MAMMOGRAM WITH CAD: 12/20/2016 CLINICAL: Z85.3 Personal History Of Malignant Neoplasm Of Breast/Z85.3. Current study was evaluated with a Computer Aided Detection (CAD) system. Comparison is made to exams dated: 06/05/2016 mammogram, 01/25/2016 mammogram - [facility], 08/25/2015 mammogram, 01/25/2015 mammogram - [facility], 02/18/2014 mammogram - [facility] and 02/12/2014 mammogram - [facility]. There are scattered fibroglandular densities in both breasts. Patient complains of right upper breast pain. No mammographic correlate is identified. The patient reports no palpable lump. There is a benign mass in the left breast. There also are post operative findings in both breasts. Additionally there is a biopsy clip in the right breast. Bilateral retropectoral silicone implants are stable. Implants may obscure breast parenchyma, making mammographic interpretation difficult. No significant masses, calcifications, or other findings are seen in either breast. IMPRESSION: INCOMPLETE: NEEDS ADDITIONAL IMAGING EVALUATION Bilateral breast ultrasound has been requested and will be performed now. SUMMARY: Ultrasound will be performed at this time; please see separate report. Derrick Bojorquez M.D. hh/:12/20/2016 14:36:01 copy to: Diony Emery MD, ph: Moisture Meter Reader: Gauri OLIVAREZ(R)(M), [facility] This exam was dictated and interpreted by [id number] for [facility]. Mammogram BI-RADS: 0 Indeterminate 12/20/2016 [facility] Bone scan NM EXAM: NM Bone Roxanna nt Imaging Whole Body DATE: 09/18/2016 5:43 PM CDT INDICATION: Breast cancer, restaging. COMPARISON: Prior bone scan dated 04/06/2015 TECHNIQUE: Approximately 2 hours delayed whole body images were obtained after intravenous administration of 25.4 mCi of Tc-99m MDP. Additional static images of the chest and pelvis were also obtained. FINDINGS: Focal increased tracer uptake in the lower cervical spine and linear uptake across the disc space between L4/L5 vertebrae is consistent with degenerative changes. There is also irregular tracer uptake in the midthoracic spine which is again likely degenerative in nature. Mild focal increased tracer uptake in the bilateral patellae is also due to degenerative arthritis. There are no bony abnormalities to suggest bony metastases and no significant change compared to prior study. The rest of tracer distribution throughout the body is physiologic. IMPRESSION: No evidence of bony metastases. 09/18/2016 [facility] Liver w Liver vessels Doppler US EXAM: US ABDOMEN LIVER WITH DOPPLER DATE: 09/18/2016 11:20 AM CDT INDICATION: R74.8 Abnormal levels of other serum enzymes - breast cancer restaging ADDITIONAL INFORMATION: None. COMPARISON: CT abdomen 12/10/2015 TECHNIQUE: Multiplanar grayscale and color Doppler ultrasound of the right upper quadrant. Additionally duplex color Doppler of the hepatic vasculature is also available for review. FINDINGS: Liver: Craniocaudal length: 15.3 cm. Echogenicity: Normal. Surface nodularity: Normal. Mass (size and location): None. Portal vein: 1 cm with normal directional flow Bile ducts: Common bile duct diameter: 0.27 cm. Intrahepatic ducts: Normal. Gallbladder: Status post cholecystectomy Pancreas: Is visualized in the region of the body and head which appear unremarkable. Spleen: Craniocaudal length: 9.9 cm. Mass or focal lesion (size and location): None. Right kidney: Not imaged Ascites: None. Lees scale duplex color Doppler and spectral waveform analysis of the hepatic vasculature including main portal vein right and left portal veins, hepatic veins, main hepatic artery right and left hepatic arteries, splenic artery and vein are available for review. There is normal directional flow with patency in the visualized arteries and veins. Main hepatic artery gives peak systolic velocity of 80 cm/s with resistive index of 0.61. IMPRESSION: 1. Unremarkable liver ultrasound with D trishapler. 2. Status post cholecystectomy. 09/18/2016 [facility] Breast BX Uni w Clip Primary Side US - BREAST BX UNI W CLIP PRIMARY SIDE US/R MULTIPLE ULTRASOUND GUIDED BIOPSIES RIGHT BREAST WITH MARKING DEVICES INSERTED AND POST DIGITAL MAMMOGRAPHIC IMAGIN06/14/2016 CLINICAL: N63 Breast Mass. Correlation is made to exams dated: 06/05/2016 mammogram, 06/05/2016 ultrasound, 01/25/2016 ultrasound, 01/25/2016 mammogram - [facility], 01/25/2015 mammogram - [facility] and 02/18/2014 ultrasound - [facility]. An ultrasound guided biopsy using real-time ultrasound was performed for the oval lesion located in the right breast at 4 o'clock middle depth 8 cm from the nipple. This was described on the previous ultrasound report. The skin was prepped in the usual manner. Local anesthetic was administered to the access site. The abnormality was approached from the lateral aspect. A 14 gauge biopsy needle was placed adjacent to the abnormality under ultrasound guidance. Once the needle was documented to be in the correct location, two specimens were obtained using an [employer] automated firing device. A titanium clip was inserted into the biopsy cavity. A skin adhesive and a sterile dressing were applied to the access site. Post procedure digital mammographic imaging demonstrates the clip at the targeted area. The specimens were sent to the laboratory for pathological analysis. A second ultrasound guided biopsy using real-time ultrasound was performed for the irregular shaped lesion located in the right breast at 2 o'clock middle depth 3 cm from the nipple. This was described on the previous mammography and ultrasound reports. The skin was prepped in the usual manner. Local anesthetic was administered to the access site. The abnormality was approached from the c audocranial aspect. A 14 gauge biopsy needle was placed adjacent to the abnormality under ultrasound guidance. Once the needle was documented to be in the correct location, three specimens were obtained using an Achieve automated firing device. A titanium clip was inserted into the biopsy cavity. A skin adhesive and a sterile dressing were applied to the access site. Post procedure digital mammographic imaging demonstrates the clip at the targeted area. The specimens were sent to the laboratory for pathological analysis. IMPRESSION: ULTRASOUND GUIDED BIOPSY BENIGN Ultrasound guided biopsy of the lesion in the right breast at 4 o'clock middle depth 8 cm from the nipple was successful with no apparent post procedure complications. Pathology indicates benign fat necrosis (FN). Pathology results are concordant with mammography and ultrasound findings. Ultrasound guided biopsy of the lesion in the right breast at 2 o'clock middle depth 3 cm from the nipple was successful with no apparent post procedure complications. Pathology indicates benign breast tissue with stromal fibrosis. Pathology results are concordant with mammography and ultrasound findings. A follow-up mammogram and an ultrasound in 6 months is recommended to demonstrate stability. Derrick Bojorquez M.D. hh/:06/16/2016 12:19:04 copy to: Diony Emery MD, ph: Moisture Meter Reader: Yusra Flor [facility] Outpatient Imaging Department This exam was dictated and interpreted by [id number] for [facility]. letter sent: Post Bx Results 06/14/2016 [facility] Breast Complete Uni US - BREAS T COMPLETE UNI US/R ULTRASOUND OF RIGHT BREAST: 06/05/2016 CLINICAL: Lump Or Mass In Breast. Comparison is made to exams dated: 01/25/2016 ultrasound, 01/25/2016 mammogram - [facility] Outpatient Imaging Department, 08/25/2015 mammogram - [facility], 06/05/2016 mammogram - [facility] Out[facility] Imaging [facility], 01/25/2015 mammogram - [facility] and 02/23/2014 ultrasound biopsy - [facility]. Color flow and real-time ultrasound of the right breast were performed. An implant is present. The post lumpectomy scar is seen at 12-1 o'clock. Of note, the patient gives a history of recent fat injection into the breast at the scar site. There is an 8 mm oval area in the right breast at 2 o'clock middle depth. This oval area is of mixed echogenicity with posterior acoustic shadowing. This correlates as an incidental finding. There also is a 5.4 cm lobulated area in the right breast at 4 o'clock middle depth. This lobulated area is hyperechoic but of mixed echogenicity. This correlates as palpated and with mammography findings. No other sonographic abnormalities are present in the right breast. There is no lymphadenopathy in the right axilla. IMPRESSION: SUSPICIOUS OF MALIGNANCY - FOLLOW-UP RECOMMENDED The 8 mm oval area in the right breast at 2 o'clock middle depth is at an intermediate suspicion for malignancy. An ultrasound guided biopsy is recommended. The 5.4 cm lobulated area in the right breast at 4 o'clock middle depth most likely is fat necrosis and is at a low suspicion for malignancy. An ultrasound guided biopsy is recommended. SUMMARY: These findings and recommendations were discussed with the patient at the time of exam. Dr. Jenny Stevens M.D. Additional Observers: Bulmaro Reynolds M.D. egk/:06/05/2016 19:10:59 copy to: Diony Emery MD, ph: Moisture Meter Reader: Yusra Flor [facility] Outpatient Imaging Department This exam was dictated and interpreted by [id number] for [facility]. letter sent: Biopsy Ultrasound BI-RADS: 4b Suspicious abnormality - intermediate suspicion of malignancy 06/05/2016 [facility] Digital Mammo DX Uni [place] - DIGI LEELA MAMMO DX UNI MA/R UNILATERAL RIGHT DIGITAL DIAGNOSTIC MAMMOGRAM WITH CAD: 06/05/2016 CLINICAL: N63 Unspecified Lump In Breast. Current study was evaluated with a Computer Aided Detection (CAD) system. Comparison is made to exams dated: 01/25/2016 mammogram - [facility] Outpatient Imaging Department, 08/25/2015 mammogram, 01/25/2015 mammogram - [facility], 06/05/2016 ultrasound, 01/25/2016 ultrasound - [facility] Out[facility] Imaging [facility] and 02/23/2014 ultrasound biopsy - [facility]. There are scattered fibroglandular densities in the right breast. The patient is status post right lumpectomy and implant reconstruction. Right retropectoral silicone implant is noted and imaged with the Amena technique. There is a 3 cm irregular asymmetry in the right breast posterior depth medial region seen on the craniocaudal view only. This correlates as palpated at 4 o'clock. There also is a 2.2 cm irregular asymmetry in the right breast posterior depth superior region seen on the mediolateral oblique view only. No other significant masses or calcifications are seen in the breast. IMPRESSION: INCOMPLETE: NEEDS ADDITIONAL IMAGING EVALUATION The 3 cm irregular asymmetry in the right breast posterior depth medial region seen on the craniocaudal view only is indeterminate. An ultrasound is recommended. The 2.2 cm irregular asymmetry in the right breast posterior depth superior region seen on the mediolateral oblique view only is consistent with a post surgical scar and is benign. SUMMARY: Ultrasound will be performed at this time; please see separate report. Dr. Jenny Stevens M.D. Additional Observers: Bulmaro Reynolds M.D. egk/:06/05/2016 19:12:18 copy to: Diony Emery MD, ph: Moisture Meter Reader: Gauri Kang RT(R)(M), [facility] Out[facility] Imaging Department This exam was dictated and interpreted by [id number] for [facility]. Mammogram BI-RADS: 0 Indeterminate 06/05/2016 [facility] Knee wo contrast MRI EXAM: MRI of the right knee without contrast INDICATION: M23.91 Unspecified internal derangement of right knee. Posterior right knee pain. COMPARISON: None. TECHNIQUE: Multiplanar, multisequence magnetic resonance imaging of the right knee was performed without the administration of intravenous gadolinium contrast. FINDINGS: Intercondylar notch: ACL and PCL are intact. Medial compartment: Mild intrasubstance degeneration throughout the medial meniscus body and posterior horn is seen without discrete tear. Focal full- thickness cartilage fissuring with mild underlying cystic change along the medial tibial plateau is seen. MCL is intact. Lateral compartment: No meniscal tear or chondral defect is seen. LCL complex is intact. Posterolateral corner structures are intact. Patellofemoral compartment: Diffuse full-thickness cartilage fissuring with underlying cystic change along the patellar apex and medial patellar facet is seen. Extensor mechanism: Quadriceps and patellar tendons are intact. Other findings: Physiologic joint fluid is seen. No acute bony fracture or stress-related marrow edema is seen. IMPRESSION: 1. 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 2. Focal high-grade chondrosis of the me dial tibial plateau. 3. Mild intrasubstance degeneration of t he medial meniscus body and posterior horn without discrete tear. SL: [id number] 02/02/2016 [facility] Lower Venous Doppler Unilat US EXAM: US RIGHT LOWER EXTREMITY VENOUS DOPPLER DATE: 01/21/2016 11:23 AM CDT INDICATION: Right calf swelling. ADDITIONAL INFORMATION: None. COMPARISON: None. TECHNIQUE: Multiplanar grayscale, color Doppler and spectral Doppler ultrasound images of the right lower extremity veins. DISCUSSION: RightThigh Veins: Common Femoral: Patent. Femoral (SFV): Patent. Popliteal: Patent. Proximal Greater Saphenous: Patent. Deep Femoral Veins: Patent. Right peroneal and posterior tibial veins also be evaluated with no deep vein thrombosis. No subcutaneous interstitial edema or fluid collection seen corresponding to the site of swelling in the right calf. IMPRESSION: 1. Normal. No deep venous thrombosis (D VT). 2. No subcutaneous interstitial edema o r fluid collection corresponding to the site of swelling in the right calf. 01/25/2016 [facility] Breast Complete Uni US - BREAS T COMPLETE UNI US/R ULTRASOUND OF RIGHT BREAST: 01/25/2016 CLINICAL: C50.919 Br Ca. Comparison is made to exams dated: 01/25/2016 mammogram - [facility] Out[facility] Imaging [facility], 08/25/2015 mammogram and 01/25/2015 mammogram - [facility]. Color flow and real-time ultrasound of the right breast were performed. Lees scale images of the real-time examination were reviewed. There is a benign 2.2 cm x 2.3 cm x 0.6 cm post surgical scar in the right breast at 1 o'clock posterior depth 6 cm from the nipple. This post surgical scar is hypoechoic. This correlates as palpated, to the reported pain and with mammography findings. No suspicious sonographic correlate is identified for the patient's right breast pain. IMPRESSION: BENIGN Clinical management of the patient's pain is recommended. The 2.2 cm x 2.3 cm x 0.6 cm post surgical scar in the right breast is benign. Return to annual mammogram screening schedule is recommended. SUMMARY: These findings were discussed with the patient in detail at the time of examination. Sesar Baird M.D. [facility]/:01/25/2016 16:50:26 copy to: Diony Emery MD, ph: Moisture Meter Reader: Yusra Flor [facility] Outpatient Imaging Department This exam was dictated and interpreted by [id number] for [facility]. letter sent: Benign Right Ultrasound BI-RADS: 2 Benign 01/25/2016 [facility] Digital Mammo DX [place] - DIGI LEELA MAMMO DX [place] BILATERAL DIGITAL DIAGNOSTIC MAMMOGRAM WITH CAD: 01/25/2016 Current study was evaluated with a Computer Aided Detection (CAD) system. Comparison is made to exams dated: 08/25/2015 mammogram, 01/25/2015 mammogram - [facility], 02/18/2014 mammogram - [facility] and 02/12/2014 mammogram - [facility]. There are scattered fibroglandular densities in both breasts. Bilateral retropectoral silicone implants appear intact. Patient complains of new right breast pain overlying the surgical scar. No suspicious mammographic correlate is identified. The patient reports no palpable lump. There is a benign calcification in both breasts. There also is a benign mass in the left breast. No significant masses, calcifications, or other findings are seen in either breast. IMPRESSION: INCOMPLETE: NEEDS ADDITIONAL IMAGING EVALUATION Right breast ultrasound will be performed for further evaluation. SUMMARY: Ultrasound will be performed at this time; please see separate report. Sesar Baidr M.D. [facility]/:01/25/2016 16:44:25 copy to: Diony Emery MD, ph: Moisture Meter Reader: Kristen JACKSON)(Italo), [facility] Out[facility] Imaging Department This exam was dictated and interpreted by [id number] for [facility]. Mammogram BI-RADS: 0 Indeterminate 01/25/2016 [facility] Abdomen/Pelvis wo IV contrast CT Patient Name: JAQUAN HERNANDEZ : 1950; Age: 65 years y/o Female MR: [id number] Study: Abdomen/Pelvis wo IV contrast CT 12/10/2015 2:34 PM CDT Ordering Physician: Vernon Harris MD Clinical Indication: bloating symptom, epigastric pain; centimeters for 2 months. History of breast cancer, in remission. Comparison: CT chest abdomen pelvis 04/06/2015. TECHNIQUE: Helical imaging was performed diaphragm through the symphysis with multiplanar reformations obtained. FINDINGS: Evaluation is limited due to lack of intravenous contrast. LOWER CHEST: A 4 mm left lower lobe nodule is unchanged compared to prior examination. Minimal lingula and right middle lobe linear atelectasis is seen. Minimal contrast is seen in the distal esophagus. No pleural or pericardial effusion is identified. SOLID ORGANS: Tiny calcified right liver granulomas are seen. Gallbladder is absent. Tiny calcified splenic granulomas are also seen. The spleen, pancreas, and bilateral adrenal glands are grossly within normal limits. Bilateral kidneys are within normal limits. BOWEL: Large and small bowel is normal in caliber. Moderate amount of stool is seen in the colon. Descending and sigmoid colon diverticulosis is seen, severe in the sigmoid colon. No bowel inflammatory changes identified. PERITONEUM: No intraperitoneal free air is seen. No intraperitoneal free fluid is identified. RETROPERITONEUM: No adenopathy. No aortic aneurysm is seen. PELVIS: Urinary bladder wall thickening is again seen without surrounding edema. The uterus is absent. Small fat-containing bilateral inguinal hernias are seen. MUSCULOSKELETAL: Dense sclerosis of the L4 and L5 vertebral bodies adjacent to the disc space is unchanged compared to prior examination. There is also disc collapse at this level.. Bilateral breast implants are partially imaged. IMPRESSION: 1. No acute intra-abdominal abnormality seen. 2. Interval placement of bilateral [address] implants. 3. Constipation. Otherwise, no signific ant interval change compared to prior examination. 4. No evidence of metastatic disease. SL: [id number] 12/10/2015 [facility] Bone Density Scan Patient Name : JAQUAN HERNANDEZ : 1950; Age: 65 years y/o Female MR: [id number] Study: Bone Density Scan 11/25/2015 1:58 PM CDT Ordering Physician: Joanne Granda MD Clinical Indication: C50.919 Malignant neoplasm of unspecified site of unspecified female breast. Comparison: 12/22/2014 FINDINGS: The axial lumbar bone mineral density is 103% of the expected age matched bone mass with a T-score 0.3. Axial lumbar average BMD is 1.078 g/cm2. This is increased 0.6% when compared to the prior exam. The left femoral neck bone mineral density is 83% of the expected age matched bone mass with a T-score of -1.3. Left femoral neck BMD is 0.706 g/cm2. The total femoral BMD is 0.865 g/cm2. This is decreased 0.1% when compared to the prior exam. IMPRESSION: 1. Normal bone mineral density of the aleksandr mbar spine. 2. Osteopenia of the left femoral neck. The World Health Organization has established that OSTEOPOROSIS occurs at -2.5 or more standard deviations (SD) below peak bone mass. OSTEOPENIA (low bone mass) occurs at -1.0 standard deviations to -2.5 standard deviations below peak bone mass. SL: [id number] 11/25/2015 [facility] Digital Mammo DX Uni MA - DIGI LEELA MAMMO DX UNI MA/R UNILATERAL RIGHT DIGITAL DIAGNOSTIC MAMMOGRAM WITH CAD: 08/25/2015 CLINICAL: Breast Cancer right breast IDC/DCIS s/p lumpectomy 02/2014 with XRT. Current study was evaluated with a Computer Aided Detection (CAD) system. Comparison is made to exams dated: 01/25/2015 mammogram - [facility], 02/18/2014 mammogram - [facility], 02/12/2014 mammogram, 02/11/2013 mammogram - [facility], 01/02/2012 mammogram - [facility] and 08/04/2010 mammogram - [facility]. There are scattered fibroglandular densities in the right breast. The patient is status post lumpectomy right breast. There are post operative and radiation changes in the right breast. There is a benign calcification in the right breast. Right subpectoral silicone implant is new. No significant masses, calcifications, or other findings are seen in the breast. IMPRESSION: BENIGN The patient is status post lumpectomy right breast. There is no mammographic evidence of malignancy. A follow-up bilateral diagnostic mammogram with possible ultrasound in 6 months is recommended to demonstrate stability given the patient's history of prior lumpectomy. The patient will be due for her annual exam at that time. The results were reviewed with the patient. Jarvis Helton M.D. jt/:08/25/2015 15:38:08 copy to: Diony Emery MD, ph: Moisture Meter Reader: Dahlia Davis, [facility] This exam was dictated and interpreted by [id number] for [facility]. letter sent: Normal exam Mammogram BI-RADS: 2 Benign 08/25/2015 [facility] Chest/Abdomen/Pelvis wo IV contrast CT EXAM: CT chest. HISTORY: Breast cancer, possible metastasis. COMPARISON: CT chest, abdomen and pelvis 04/06/2014. CHEST TECHNIQUE: Axial images obtained of the thorax without IV contrast. Sagittal and coronal reformats. DLP: mGy cm FINDINGS: Near-complete resolution of the previous seroma in the right breast. No bulky axillary or mediastinal nodes are seen. Stable calcified nodes in the mediastinum and mame. 5 mm lung nodule right upper lobe, serie s 3, image 20 appears new. Faint 5 mm groundglass nodule right lower lobe, image 25 and 4 mm groundglass nodule right lower lobe, image 24 are stable. Calcified granuloma right lung apex. Heart size normal. Coronary artery calcifications. Left subclavian Port-A-Cath. ABDOMEN and PELVIS TECHNIQUE: Axial images obtained through the abdomen and pelvis with oral contrast. Sagittal and coronal reformats. DLP: mGy cm FINDINGS: Abdomen and pelvis: Limited exam without IV contrast. Cholecystectomy. Calcified granuloma in the spleen. Unenhanced the liver, kidneys, adrenals and pancreas appear unremarkable. Diverticulosis of the sigmoid colon with retained contrast in several diverticula. The bladder is underdistended. No bulky adenopathy or free fluid. Hysterectomy. Calcification aorta. Moderately extensive Modic degenerative changes in the endplates of a few lower thoracic vertebral bodies and L4-L5 again noted and slightly progressed in the thoracic spine. IMPRESSION: 1. New 5 mm lung nodule right upper lobe may reflect a metastasis. A PET/CT can further evaluate. 2. No definite metastatic disease in the abdomen and pelvis without IV contrast. 3. Coronary artery calcifications. 4. Diverticulosis sigmoid colon. 5. Near complete resolution of the serom a in the right breast. SL:13 04/06/2015 [facility] Bone scan NM REASON FOR EXAMIN ATION: C50.919 Malignant neoplasm of unspecified site of unspecified female breast COMPARISON: Nuclear medicine bone scan from 04/06/2014 TECHNIQUE: Approximately 4 hours after the intravenous administration of 27.5 mCi of technetium 99m MDP, delayed whole-body images were obtained in the anterior and posterior projections. Additional dedicated images of the pelvis, chest, and calvarium were also acquired. FINDINGS: Prominent increased uptake in the lower lumbar spine approximately at the L4-L5 level is again noted and stable. Degenerative changes of the bilateral AC joints, patellofemoral compartments, and the left hindfoot are seen. Degenerative changes of the cervical spine are also seen. Normal soft tissue, renal, and bladder activity is identified. IMPRESSION: 1. Stable appearance of increased uptake at L4-L5 level, likely related to degenerative change. 2. Otherwise, no evidence of osteoblasti c metastatic disease. SL: 16 04/06/2015 [facility] Barium enema air contrast DX F luoro time - 3.83 minutes. COLON BARIUM ENEMA STUDY. CLINICAL INFORMATION: constipation 564.00, bloating symptom 787.3. COMPARISON: None. Double-contrast barium enema study was performed. Paper Machine Backtender image was obtained. FINDINGS: Initial content management consultant image demonstrates nonspecific nonobstructive bowel gas pattern. Postoperative cholecystectomy. Osseous structures are intact. Double contrast evaluation of the colon demonstrates multiple sigmoid diverticula and scattered colonic diverticula. No persistent stricture or colonic mass is present. There is moderate residual stool within the colon, most pronounced along the right colon limiting evaluation. IMPRESSION: 1. Limited study as above. No persistent stricture or colonic mass. 2. Moderate diverticulosis without evide nce of acute diverticulitis. 3. Moderate residual stool within the co landry, most pronounced along the right colon limiting evaluation. SL: 12 02/24/2015 [facility] Digital Mammo DX [place] - DIGI LEELA MAMMO DX [place] BILATERAL DIGITAL DIAGNOSTIC MAMMOGRAM WITH CAD: 01/25/2015 CLINICAL: Hx Of Breast Cancer right breast IDC/DCIS s/p lumpectomy 02/2014 with XRT. Current study was evaluated with a Computer Aided Detection (CAD) system. Comparison is made to exams dated: 02/18/2014 mammogram - [facility], 02/12/2014 mammogram - [facility], 01/02/2012 mammogram - [facility], 02/11/2013 mammogram - [facility], 08/04/2010 mammogram - [facility] and 06/14/2009 mammogram - [facility]. There are scattered fibroglandular densities in both breasts. The patient is status post lumpectomy right breast. There are post operative and radiation changes in the right breast. There is a chemotherapy port on the left side. There is a benign calcification in both breasts. There also is a benign mass in the left breast. No significant masses, calcifications, or other findings are seen in either breast. IMPRESSION: BENIGN The patient is status post lumpectomy right breast. There is no mammographic evidence of malignancy. A follow-up mammogram in 6 months is recommended to demonstrate stability. The results were reviewed with the patient. SUMMARY: A follow-up right diagnostic mammogram with possible ultrasound in 6 months is recommended to demonstrate stability given the patient's history of prior lumpectomy. Jarvis wright/vee:01/25/2015 13:51:16 Moisture Meter Reader: Ofelia Villa, [facility] This exam was dictated and interpreted by [id number] for [facility]. letter sent: Bilateral Benign Mammogram BI-RADS: 2 Benign 01/25/2015 [facility] Bone Density Scan PROCEDURE: Bone Density Scan CLINICAL INFORMATION breast cancer COMPARISON: None. FINDINGS: The lumbar spine bone mineral density is 1.07. This is 102% of the expected normal value, 0.2 standard deviations above normal. The left femoral neck bone mineral density is 0.71. This is 84% of the expected normal value, -1.2 standard deviations below normal. The left hip total bone mineral density is 0.87. IMPRESSION: 1. Normal bone mineral density of the aleksandr mbar spine. 2. Normal bone mineral density of the le ft femoral neck. SL: 13 12/22/2014 [facility] Chest 2 views DX PA and LATERA L CHEST (2 views) HISTORY: 466.0 acute bronchitis A prior study of 06/15/[address] scan of 04/06/2014 were reviewed. FINDINGS: The lungs are clear. There is a 3 mm calcified granuloma in the right upper lobe. There is very mild chronic elevation of the right hemidiaphragm. There is no evidence of an active or acute process within the chest. There are no pleural effusions. The heart and pulmonary vasculature are within normal limits. The regional skeleton is unremarkable. There is a left subclavian single-lumen Port-A-Cath. The catheter tip is in the superior vena cava. There are surgical clips in the right upper quadrant consistent with a prior cholecystectomy. CONCLUSION: 1. No active disease. 2. There is a left subclavian single-lum en Port-A-Cath. The catheter tip is in the superior vena cava. 3. There are surgical clips in the right upper quadrant consistent with a prior cholecystectomy. Coding: Chest 2 views CPT Code: 80869 SL: 14 Abdoul Ureña M.D. 12/22/2014 [facility] 1view EXAM: CHEST 1 VIEW DATE: Jun 15, 2014 05:18:00 PM INDICATION: Fever COMPARISON: March 17, 2014 at 1133 hours TECHNIQUE: Single AP view of the chest FINDINGS: Left subclavian Port-A-Cath is in place with distal tip projecting at distal superior vena cava. This is unchanged. Lung volumes have improved. Cardiac silhouette is of normal size and shape. Mediastinal contours are normal. Pulmonary vascularity is normal. Small calcified nodule is identified within the right upper lobe unchanged consistent with granuloma. A button artifact is superimposed upon the left midlung. The remainder of the lungs are clear. No effusions are identified. Osseous structures appear intact. There is a gentle S- shaped scoliotic curve of the upper thoracic spine, unchanged. Surgical clips are present in the right upper quadrant indicating prior cholecystectomy. IMPRESSION: 1. Left subclavian Port-A-Cath in place with distal tip projecting at distal superior vena cava without interval change. 2. Improved lung volume without acute ca rdiopulmonary disease. 3. Prior cholecystectomy . 06/15/2014 [facility] Chest/Abdomen/Pelvis w IV contrast CT I. CT SCAN OF THE CHEST WITH CONTRAST II. CT SCAN OF THE ABDOMEN WITH CONTRAST III. CT SCAN OF THE PELVIS WITH CONTRAST HISTORY: Breast carcinoma. A CT scan of the abdomen and pelvis from 11/07/[address] SCAN OF THE CHEST WITH CONTRAST. Technique: Helical CT images were obtained from the thoracic inlet to the upper abdomen following the administration of nonionic iodinated intravenous contrast. Sagittal and coronal reconstructions were provided. FINDINGS: There appear to be postoperative changes involving the right breast and right axilla. There is a 5.3 x 4.5 cm fluid collection within the right breast probably representing a seroma. There is mild hazy density in the right axilla presumably related to recent postoperative changes. Please correlate with surgical history. There is no evidence of intrathoracic metastasis. The lungs are clear. There is mild elevation of the right hemidiaphragm. There is a small calcified granuloma in the right upper lobe. There are no masses, infiltrates, nodules, other focal abnormalities. There are no pleural effusions. There is no hilar or mediastinal adenopathy. The heart is normal in size. There is no pericardial effusion.The aorta is normal in caliber. There is no evidence of aneurysm or dissection. There is a left subclavian Port-A-Cath which extends into the superior vena cava. There is extensive sclerotic density within the spine adjacent to the T8-T9 interspace involving inferior endplate of T8 and the superior endplate of T9. As this is symmetrical along both sides of the disc, this is probably discogenic (degenerative) in nature. Minimal similar changes are noted at T6-T7. It is noted even more extensive changes which are similar are noted in the lumbar spine at L4-L5. There are mild changes in the midthoracic spine. No suspicious appearing blastic or lytic lesions are seen involving the regional skeleton. CONCLUSION: 1. There appear to be postoperative nery nges involving the right breast and axilla. Please correlate with surgical history. 2. 5.3 x 4.5 cm fluid collection the rig ht breast, probably a seroma. 3. No evidence of intrathoracic metastas is. 4. No evidence of an active or acute pro cess within the chest the. 5. There is a left subclavian single-lum en Port-A-Cath. The catheter tip is in the superior vena cava. 6. Sclerotic density adjacent to the T8- T9 interspace is probably discogenic in origin. II. CT SCAN OF THE ABDOMEN WITH CONTRAST Technique: Helical CT images were obtained from the domes the diaphragms to the iliac crests following the administration of oral and nonionic iodinated intravenous contrast. III. CT SCAN OF THE PELVIS WITH CONTRAST. Technique: Helical CT images were obtained from the iliac crests to the pubic symphysis following the administration of oral and nonionic iodinated intravenous contrast. Sagittal and coronal reconstructions were provided. FINDINGS: There is no evidence of intra-abdominal metastasis. No mass or adenopathy is seen within the abdomen or pelvis. There are moderate diffuse fatty change involving the liver. The liver is otherwise unremarkable. No focal lesions are seen within the liver to suggest metastasis. Status post cholecystectomy. Surgical clips are noted in the right upper quadrant. There is mild dilatation the common bile duct (8-9 mm) consistent with post cholecystectomy change. There is no intrahepatic ductal dilatation. The spleen, pancreas, and adrenal glands are normal in appearance. The kidneys show good, symmetrical excretion without hydronephrosis. There are mild atherosclerotic change about the abdominal aorta and iliac arteries. There is no aneurysm or dissection. Note is made of a retroaortic left renal vein, a normal variant. As the left retroaortic renal vein inserts low into the inferior vena cava, this could be of clinical significance of the patient ever needs anterior vena cava filter. The uterus is not visualized. Presumably, the patient has had a prior hysterectomy. There is extensive sigmoid diverticulosis. There is mild to moderate diverticulosis of the descending colon. There is a moderate amount of fecal material within the colon (constipation). The gastrointestinal structures are otherwise unremarkable. There are tiny bilateral inguinal hernias. There is no herniation of bowel. There are extensive sclerotic changes adjacent to the L4-L5 interspace involving the inferior endplate of L4 and the superior endplate of L5. There is disc space narrowing and irregularity. Therefore, these findings are felt to be discogenic (degenerative) in nature and similar to that seen in the thoracic spine at T8-T9. There is also degenerative disc disease at L2-L3 with disc space narrowing. There are very mild degenerative changes elsewhere within the lumbar spine. No suspicious blastic or destructive lesions are seen. CONCLUSION: 1. No evidence of intra-abdominal metast asis. 2. Moderate diffuse fatty changes involv ing the liver. There is mild dilatation the common bile duct felt to represent post cholecystectomy change. 3. Extensive sigmoid diverticulosis. The re is mild to moderate diverticulosis of the descending colon. There is no evidence of diverticulitis. There is constipation 4. Tiny bilateral inguinal hernias. 5. Extensive sclerotic changes adjacent to the L4-L5 interspace felt to be discogenic in nature. Please see discussion above. Coding: Chest/Abdomen/Pelvis w contrast CT SL: 13 Abdoul Ureña M.D. 04/06/2014 [facility] Bone scan NM WHOLE-BODY BONE S CAN: PROCEDURE: 25 mCi of technetium 99m MDP were given intravenously followed by whole-body images. HISTORY: Breast cancer COMPARISON: CT thorax/abdomen/pelvis dated 04/06/2014 FINDINGS: No focal abnormal activity to suggest metastatic disease. IMPRESSION: No evidence of osseous metastatic disease. SL: 16 04/06/2014 [facility] Chest 1view EXAM: XR CHEST SIN GLE VIEW DATE: 03/17/2014. INDICATION: Port-A-Cath placement. COMPARISON: Barium swallow 04/09/2012. TECHNIQUE: A single radiograph was provided for interpretation. FINDINGS: A left subclavian approach Port-A-Cath is identified with the tip projecting at the SVC/RA junction. Lung volumes are diminished bilaterally accentuating the interstitial markings and hilar structures. A mild left retrocardiac opacity is identified, favoring atelectasis versus infiltrate. No pleural effusion is identified. No large pneumothorax is seen. The cardiomediastinal silhouette is within normal limits. Mild degenerative changes are noted within the osseous structures. IMPRESSION: 1. Left chest port in satisfactory posit ion. No large pneumothorax identified. 2. Low lung volumes with left retrocardi ac opacity favoring atelectasis versus infiltrate/aspiration. 03/17/2014 [facility] Lymphoscintigraphy NM EXAM: Ly mphatics and lymph nodes imaging, DATE: March 16, 2014 12:20:05 PM COMPARISON: Breast ultrasound 02/18/2014 CLINICAL INDICATION: Right breast cancer, lymph node mapping. TECHNIQUE: After administration of 5 mCi of Tc 99m filter sulfur colloid in the right subareolar region, multiple static images around the chest were obtained at one hour postinjection. FINDINGS: There is evidence of drainage to a right axillary lymph node at one hour postinjection. There is no evidence of drainage to internal mammary chain or other lymph node basins. IMPRESSION: There is evidence of drainage to right lower axillary lymph node at 1 hour post injection. 03/16/2014 [facility] Consultation Notes No Data Provided for This Section Discharge Summaries No Data Provided for This Section History and Physicals No Data Provided for This Section Vital Signs Vital Sign Value Date Comments Source Systolic (mm Hg) 169 02/16/2020 [facility] Diastolic (mm Hg) 83 02/16/2020 [facility] Heart Rate 108 02/16/2020 [facility] Respitory Rate 18 02/16/2020 [facility] Temperature Oral (F) 98.8 F 02/16/2020 [facility] Height 159 cm 02/16/2020 [facility] Weight 49 0 02/16/2020 [facility] BMI Calculated 19.38 02/16/2020 [facility] Systolic (mm Hg) 112 02/12/2019 [facility] Diastolic (mm Hg) 79 02/12/2019 [facility] Heart Rate 93 02/12/2019 [facility] Respitory Rate 16 02/12/2019 [facility] Temperature Oral (F) 98.7 F 02/12/2019 [facility] Height 159 cm 02/12/2019 [facility] Weight 50.545 02/12/2019 [facility] BMI Calculated 19.99 02/12/2019 [facility] Weight 50.9 07/22/2018 [facility] Height 159 cm 07/22/2018 [facility] BMI Calculated 20.13 07/22/2018 [facility] Heart Rate 89 07/22/2018 [facility] Respitory Rate 16 07/22/2018 [facility] Temperature Oral (F) 97.6 F 07/22/2018 [facility] Systolic (mm Hg) 119 07/22/2018 [facility] Diastolic (mm Hg) 75 07/22/2018 [facility] Weight 55.511 01/30/2018 [facility] Systolic (mm Hg) 117 01/30/2018 [facility] Diastolic (mm Hg) 74 01/30/2018 [facility] Heart Rate 91 01/30/2018 [facility] Respitory Rate 18 01/30/2018 [facility] Weight 55.182 01/21/2018 [facility] Height 159 cm 01/21/2018 [facility] BMI Calculated 21.83 01/21/2018 [facility] Systolic (mm Hg) 113 01/21/2018 [facility] Diastolic (mm Hg) 68 01/21/2018 [facility] Temperature Oral (F) 98.1 F 01/21/2018 [facility] Respitory Rate 17 01/21/2018 [facility] Heart Rate 75 01/21/2018 [facility] BMI Calculated 25.54 07/25/2017 [facility] Height 159.2 cm 07/25/2017 [facility] Weight 64.727 07/25/2017 [facility] Systolic (mm Hg) 128 07/25/2017 [facility] Diastolic (mm Hg) 74 07/25/2017 [facility] Heart Rate 75 07/25/2017 [facility] Temperature Oral (F) 98.2 F 07/25/2017 [facility] Respitory Rate 16 07/25/2017 [facility] BMI Calculated 26.66 12/27/2016 [facility] Weight 68.273 12/27/2016 [facility] Height 160.02 cm 12/27/2016 [facility] Heart Rate 72 12/27/2016 [facility] Respitory Rate 18 12/27/2016 [facility] Systolic (mm Hg) 117 12/27/2016 [facility] Diastolic (mm Hg) 67 12/27/2016 [facility] Heart Rate 96 07/24/2016 [facility] Weight 67.455 07/24/2016 [facility] BMI Calculated 26.35 07/24/2016 [facility] Height 160 cm 07/24/2016 [facility] Temperature Oral (F) 98 F 07/24/2016 [facility] Respitory Rate 18 07/24/2016 [facility] Systolic (mm Hg) 127 07/24/2016 [facility] Diastolic (mm Hg) 77 07/24/2016 [facility] Heart Rate 90 04/12/2016 [facility] Respitory Rate 16 04/12/2016 [facility] Temperature Oral (F) 98.4 F 04/12/2016 [facility] Height 160 cm 04/12/2016 [facility] BMI Calculated 24.5 04/12/2016 [facility] Weight 62.727 04/12/2016 [facility] Systolic (mm Hg) 133 04/12/2016 [facility] Diastolic (mm Hg) 76 04/12/2016 [facility] BMI Calculated 24.22 01/21/2016 [facility] Weight 62 0 01/21/2016 [facility] Height 160 cm 01/21/2016 [facility] Heart Rate 73 01/21/2016 [facility] Temperature Oral (F) 98.1 F 01/21/2016 [facility] Respitory Rate 16 01/21/2016 [facility] Systolic (mm Hg) 126 01/21/2016 [facility] Diastolic (mm Hg) 87 01/21/2016 [facility] Weight 59.273 10/20/2015 [facility] BMI Calculated 23.15 10/20/2015 [facility] Height 160.02 cm 10/20/2015 [facility] Temperature Oral (F) 97.7 F 10/20/2015 [facility] Respitory Rate 18 10/20/2015 [facility] Heart Rate 64 10/20/2015 [facility] Systolic (mm Hg) 137 10/20/2015 [facility] Diastolic (mm Hg) 63 10/20/2015 [facility] Weight 58.091 08/13/2015 [facility] BMI Calculated 22.69 08/13/2015 [facility] Height 160.02 cm 08/13/2015 [facility] Temperature Oral (F) 96.4 F 08/13/2015 [facility] Systolic (mm Hg) 143 08/13/2015 [facility] Diastolic (mm Hg) 75 08/13/2015 [facility] Respitory Rate 16 08/13/2015 [facility] Heart Rate 69 08/13/2015 [facility] Height 160.02 cm 08/10/2015 [facility] Weight 56.818 08/10/2015 [facility] BMI Calculated 22.19 08/10/2015 [facility] Weight 57.636 07/23/2015 [facility] BMI Calculated 22.51 07/23/2015 [facility] Height 160.02 cm 07/23/2015 [facility] Heart Rate 74 07/23/2015 [facility] Temperature Oral (F) 96.3 F 07/23/2015 [facility] Respitory Rate 18 07/23/2015 [facility] Systolic (mm Hg) 127 07/23/2015 [facility] Diastolic (mm Hg) 62 07/23/2015 [facility] Weight 57.273 07/02/2015 [facility] BMI Calculated 22.37 07/02/2015 [facility] Height 160 cm 07/02/2015 [facility] Temperature Oral (F) 97.5 F 07/02/2015 [facility] Systolic (mm Hg) 129 07/02/2015 [facility] Diastolic (mm Hg) 73 07/02/2015 [facility] Respitory Rate 18 07/02/2015 [facility] Heart Rate 68 07/02/2015 [facility] BMI Calculated 22.38 05/19/2015 [facility] Weight 57.318 05/19/2015 [facility] Height 160.02 cm 05/19/2015 [facility] Systolic (mm Hg) 143 05/19/2015 [facility] Diastolic (mm Hg) 65 05/19/2015 [facility] Heart Rate 74 05/19/2015 [facility] Temperature Oral (F) 96.1 F 05/19/2015 [facility] Respitory Rate 17 05/19/2015 [facility] Height 160.2 cm 05/17/2015 [facility] Weight 58 1 07/17/2014 [facility] BMI Calculated 22.6 05/17/2015 [facility] Respitory Rate 18 05/17/2015 [facility] Temperature Oral (F) 97.6 F 05/17/2015 [facility] Heart Rate 63 05/17/2015 [facility] Systolic (mm Hg) 120 05/17/2015 [facility] Diastolic (mm Hg) 71 05/17/2015 [facility] Height 160.02 cm 05/10/2015 [facility] Weight 56.818 05/10/2015 [facility] BMI Calculated 22.19 05/10/2015 [facility] Systolic (mm Hg) 140 04/16/2015 [facility] Diastolic (mm Hg) 79 04/16/2015 [facility] Heart Rate 67 04/16/2015 [facility] Respitory Rate 18 04/16/2015 [facility] Temperature Oral (F) 96.2 F 04/16/2015 [facility] Weight 57.045 04/16/2015 [facility] BMI Calculated 22.28 04/16/2015 [facility] Height 160.02 cm 04/16/2015 [facility] BMI Calculated 22.37 04/06/2015 [facility] Weight 57.273 04/06/2015 [facility] Height 160.02 cm 04/06/2015 [facility] Height 160.02 cm 03/05/2015 [facility] Weight 58.352 03/05/2015 [facility] BMI Calculated 22.79 03/05/2015 [facility] Respitory Rate 18 03/05/2015 [facility] Temperature Oral (F) 96.1 F 03/05/2015 [facility] Heart Rate 80 03/05/2015 [facility] Systolic (mm Hg) 136 03/05/2015 [facility] Diastolic (mm Hg) 68 03/05/2015 [facility] Height 160.02 cm 01/22/2015 [facility] BMI Calculated 22.77 01/22/2015 [facility] Weight 58.295 01/22/2015 [facility] Systolic (mm Hg) 110 01/22/2015 [facility] Diastolic (mm Hg) 56 01/22/2015 [facility] Respitory Rate 18 01/22/2015 [facility] Heart Rate 96 01/22/2015 [facility] Temperature Oral (F) 97.7 F 01/22/2015 [facility] Height 160.02 cm 01/01/2015 [facility] BMI Calculated 23.79 01/01/2015 [facility] Weight 60.909 01/01/2015 [facility] Systolic (mm Hg) 127 01/01/2015 [facility] Diastolic (mm Hg) 58 01/01/2015 [facility] Heart Rate 92 01/01/2015 [facility] Respitory Rate 18 01/01/2015 [facility] Temperature Oral (F) 97.2 F 01/01/2015 [facility] BMI Calculated 23.08 12/22/2014 [facility] Weight 59.091 12/22/2014 [facility] Height 160.02 cm 12/22/2014 [facility] Weight 60 0 12/11/2014 [facility] BMI Calculated 23.43 12/11/2014 [facility] Height 160.02 cm 12/11/2014 [facility] Systolic (mm Hg) 129 12/11/2014 [facility] Diastolic (mm Hg) 59 12/11/2014 [facility] Temperature Oral (F) 98.7 F 12/11/2014 [facility] Respitory Rate 18 12/11/2014 [facility] Heart Rate 78 12/11/2014 [facility] Height 160.02 cm 12/11/2014 [facility] Weight 60 0 12/11/2014 [facility] BMI Calculated 23.43 12/11/2014 [facility] Systolic (mm Hg) 127 12/11/2014 [facility] Diastolic (mm Hg) 59 12/11/2014 [facility] Temperature Oral (F) 98.7 F 12/11/2014 [facility] Respitory Rate 18 12/11/2014 [facility] Heart Rate 78 12/11/2014 [facility] Weight 61.591 11/20/2014 [facility] BMI Calculated 24.05 11/20/2014 [facility] Height 160.02 cm 11/20/2014 [facility] Heart Rate 76 11/20/2014 [facility] Temperature Oral (F) 97.5 F 11/20/2014 [facility] Respitory Rate 16 11/20/2014 [facility] Systolic (mm Hg) 119 11/20/2014 [facility] Diastolic (mm Hg) 57 11/20/2014 [facility] Systolic (mm Hg) 135 10/30/2014 [facility] Diastolic (mm Hg) 63 10/30/2014 [facility] Heart Rate 89 10/30/2014 [facility] Respitory Rate 20 10/30/2014 [facility] Temperature Oral (F) 96.1 F 10/30/2014 [facility] Weight 62.955 10/30/2014 [facility] BMI Calculated 24.59 10/30/2014 [facility] Height 160.02 cm 10/30/2014 [facility] BMI Calculated 24.54 10/09/2014 [facility] Weight 62.841 10/09/2014 [facility] Height 160.02 cm 10/09/2014 [facility] Respitory Rate 20 10/09/2014 [facility] Heart Rate 87 10/09/2014 [facility] Temperature Oral (F) 98.0 F 10/09/2014 [facility] Systolic (mm Hg) 141 10/09/2014 [facility] Diastolic (mm Hg) 87 10/09/2014 [facility] Systolic (mm Hg) 145 10/02/2014 [facility] Diastolic (mm Hg) 63 10/02/2014 [facility] Temperature Oral (F) 98.7 F 10/02/2014 [facility] Respitory Rate 18 10/02/2014 [facility] Heart Rate 85 10/02/2014 [facility] Weight 61.818 10/02/2014 [facility] BMI Calculated 24.14 10/02/2014 [facility] Height 160.02 cm 10/02/2014 [facility] Height 160.02 cm 09/25/2014 [facility] BMI Calculated 24.36 09/25/2014 [facility] Weight 62.386 09/25/2014 [facility] Systolic (mm Hg) 136 09/25/2014 [facility] Diastolic (mm Hg) 62 09/25/2014 [facility] Temperature Oral (F) 97 F 09/25/2014 [facility] Heart Rate 101 09/25/2014 [facility] Respitory Rate 18 09/25/2014 [facility] Weight 61.96 09/18/2014 [facility] BMI Calculated 24.2 09/18/2014 [facility] Height 160.02 cm 09/18/2014 [facility] Temperature Oral (F) 97.8 F 09/18/2014 [facility] Heart Rate 73 09/18/2014 [facility] Respitory Rate 16 09/18/2014 [facility] Systolic (mm Hg) 125 09/18/2014 [facility] Diastolic (mm Hg) 58 09/18/2014 [facility] Systolic (mm Hg) 135 08/28/2014 [facility] Diastolic (mm Hg) 74 08/28/2014 [facility] Respitory Rate 18 08/28/2014 [facility] Temperature Oral (F) 98.5 F 08/28/2014 [facility] Heart Rate 91 08/28/2014 [facility] Height 160.02 cm 08/28/2014 [facility] BMI Calculated 24.92 08/28/2014 [facility] Weight 63.807 08/28/2014 [facility] BMI Calculated 24.36 08/21/2014 [facility] Weight 62.386 08/21/2014 [facility] Height 160.02 cm 08/21/2014 [facility] Systolic (mm Hg) 113 08/21/2014 [facility] Diastolic (mm Hg) 62 08/21/2014 [facility] Heart Rate 96 08/21/2014 [facility] Respitory Rate 18 08/21/2014 [facility] Temperature Oral (F) 96.2 F 08/21/2014 [facility] Height 160 cm 08/17/2014 [facility] Weight 66 0 08/17/2014 [facility] BMI Calculated 25.78 08/17/2014 [facility] BMI Calculated 25.25 08/14/2014 [facility] Weight 64.659 08/14/2014 [facility] Height 160.02 cm 08/14/2014 [facility] Systolic (mm Hg) 141 08/14/2014 [facility] Diastolic (mm Hg) 70 08/14/2014 [facility] Heart Rate 80 08/14/2014 [facility] Respitory Rate 18 08/14/2014 [facility] Temperature Oral (F) 97.1 F 08/14/2014 [facility] BMI Calculated 24.32 07/27/2014 [facility] Weight 62.273 07/27/2014 [facility] Height 160.02 cm 07/27/2014 [facility] Height 160.02 cm 07/24/2014 [facility] BMI Calculated 24.73 07/24/2014 [facility] Weight 63.324 07/24/2014 [facility] Diastolic (mm Hg) 61 07/24/2014 [facility] Systolic (mm Hg) 124 07/24/2014 [facility] Heart Rate 93 07/24/2014 [facility] Temperature Oral (F) 96.7 F 07/24/2014 [facility] Respitory Rate 18 07/24/2014 [facility] Respitory Rate 20 07/17/2014 [facility] Systolic (mm Hg) 125 07/17/2014 [facility] Temperature Oral (F) 96 F 07/17/2014 [facility] Heart Rate 90 07/17/2014 [facility] Diastolic (mm Hg) 68 07/17/2014 [facility] Weight 63.636 07/17/2014 [facility] BMI Calculated 24.86 07/17/2014 [facility] Height 160 cm 07/17/2014 [facility] Diastolic (mm Hg) 57 07/07/2014 [facility] Temperature Oral (F) 96.1 F 07/07/2014 [facility] Respitory Rate 18 07/07/2014 [facility] Heart Rate 93 07/07/2014 [facility] Systolic (mm Hg) 118 07/07/2014 [facility] Height 160.02 cm 07/07/2014 [facility] BMI Calculated 25.43 07/07/2014 [facility] Weight 65.114 07/07/2014 [facility] Height 157.48 cm 04/24/2014 [facility] BMI Calculated 27.27 04/24/2014 [facility] Weight 67.636 04/24/2014 [facility] Temperature Oral (F) 97.5 F 04/24/2014 [facility] Systolic (mm Hg) 113 04/24/2014 [facility] Diastolic (mm Hg) 62 04/24/2014 [facility] Respitory Rate 18 04/24/2014 [facility] Heart Rate 87 04/24/2014 [facility] Weight 68.182 04/20/2014 [facility] BMI Calculated 26.63 04/20/2014 [facility] Height 160.02 cm 04/20/2014 [facility] Diastolic (mm Hg) 89 04/08/2014 [facility] Systolic (mm Hg) 164 04/08/2014 [facility] Height 162.56 cm 04/08/2014 [facility] Weight 77.074 04/08/2014 [facility] BMI Calculated 29.17 04/08/2014 [facility] Temperature Oral (F) 97.3 F 04/08/2014 [facility] Respitory Rate 16 04/08/2014 [facility] Heart Rate 89 04/08/2014 [facility] Diastolic (mm Hg) 78 03/25/2014 [facility] Respitory Rate 18 03/25/2014 [facility] Systolic (mm Hg) 137 03/25/2014 [facility] BMI Calculated 26.19 03/25/2014 [facility] Height 162.56 cm 03/25/2014 [facility] Temperature Oral (F) 97.2 F 03/25/2014 [facility] Heart Rate 78 03/25/2014 [facility] Weight 69.205 03/25/2014 [facility] Temperature Oral (F) 96.2 F 02/27/2014 [facility] Weight 68.75 02/27/2014 [facility] Heart Rate 80 02/27/2014 [facility] Respitory Rate 16 02/27/2014 [facility] Systolic (mm Hg) 129 02/27/2014 [facility] Diastolic (mm Hg) 87 02/27/2014 [facility] BMI Calculated 26.02 02/27/2014 [facility] Height 162.56 cm 02/27/2014 [facility] Encounters Location Location Details Encounter Type Encounter Number Reason For Visit Attending Provider ADM Date DC Date Status Source [facility] Outpatient Imaging [facility] Outpt Diag Services [id number] Brock Lee 12/26/2013 12/27/2013 [facility] [place] Outpt Diag Services [id number] 05 Sunday Mccauley 02/12/2014 02/13/2014 [facility] [place] [facility] [place] Outpt Diag Services [id number] 08 Sunday Formanner 02/18/2014 02/19/2014 OP [facility] [place] Outpt Diag Services [id number] 09 Sunday Mccauley 02/23/2014 02/24/2014 OP [facility] Outpatient [id number] Tressa Koroma 02/27/2014 02/28/2014 [facility] Outpatient [id number] Tressa Koroma 03/16/2014 03/17/2014 [facility] [place] Outpt Diag Services [id number] 10 Tressa Koroma 03/17/2014 03/18/2014 [facility] Outpatient [id number] Joanne Granda 03/25/2014 03/26/2014 [facility] Oncology [facility] Phone Message [id number] 03/31/2014 04/02/2014 [facility] Outpatient [id number] Joanne Granda 04/06/2014 04/07/2014 [facility] Outpatient [id number] Joanne Granda 04/08/2014 04/09/2014 [facility] OP Recurring [id number] Joanne Granda 04/13/2014 05/13/2014 [facility] Outpatient [id number] Joanne Granda 04/20/2014 04/21/2014 [facility] Outpatient [id number] Joanne Granda 04/23/2014 04/24/2014 [facility] OP Recurring [id number] Joanne Granda 04/29/2014 05/29/2014 [facility] OP Recurring [id number] Joanne Granda 06/03/2014 07/03/2014 [facility] OP Recurring [id number] Joanne Granda 06/26/2014 07/26/2014 [facility] [place] [facility] Phone Message [id number] 07/06/2014 07/08/2014 [facility] [place] [facility]cology [facility] Phone Message [id number] 07/13/2014 07/15/2014 [facility] [place] [facility] Phone Message [id number] 07/21/2014 07/23/2014 [facility] Outpatient [id number] Joanne Granda 07/27/2014 07/28/2014 [facility] OP Recurring [id number] Joanne Granda 07/31/2014 08/30/2014 [facility] OP Recurring [id number] Joanne Granda 08/06/2014 09/05/2014 [facility] Oncology [facility] Phone Message [id number] 08/18/2014 08/20/2014 [facility] OP Recurring [id number] Joanne Granda 08/27/2014 08/27/2014 [facility] OP Recurring [id number] Joanne Granda 09/04/2014 2014 [facility] OP Recurring [id number] Joanne Granda 09/10/2014 10/10/2014 [facility] Oncology [facility] Phone Message [id number] 10/02/2014 2014 [facility] Outpatient [id number] Diony Emery 10/06/2014 10/07/2014 [facility] Oncology [facility] Phone Message [id number] 10/07/2014 10/09/2014 [facility] OP Recurring [id number] Joanne Granda 10/09/2014 11/08/2014 [facility] OP Recurring [id number] Diony Rupert 10/21/2014 11/20/2014 [facility] OP Recurring [id number] Joanne Granda 10/29/2014 11/28/2014 [facility] OP Recurring [id number] Joanne Granda 11/20/2014 12/20/2014 [facility] OP Recurring [id number] Dionyjt Emery 11/20/2014 12/20/2014 [facility] OP Recurring [id number] Joanne Granda 12/10/2014 01/09/2015 [facility] Outpatient [id number] Joanne Granda 12/22/2014 12/23/2014 [facility] Oncology [facility] OP Recurring [id number] Joanne Granda 01/01/2015 01/31/2015 [facility] Outpatient [id number] Dionyjt Emery 01/19/2015 01/20/2015 [facility] Oncology [facility] Phone Message [id number] 01/19/2015 01/21/2015 [facility] OP Recurring [id number] Joanne Granda 01/21/2015 02/20/2015 [facility] Outpatient [id number] Dionyjt Emery 01/25/2015 01/26/2015 [facility] Oncology [facility] OP Recurring [id number] Joanne Granda 02/12/2015 03/14/2015 [facility] Outpatient [id number] Vernon Harris 02/24/2015 02/25/2015 [facility] OP Recurring [id number] Joanne Granda 03/03/2015 03/18/2015 [facility] OP Recurring [id number] Joanne Granda 03/23/2015 04/22/2015 [facility] Oncology [facility] OP Recurring [id number] Joanne Granda 03/24/2015 04/23/2015 [facility] Oncology [facility] Phone Message [id number] 03/24/2015 03/26/2015 [facility] [place] [facility] [place]cology [facility] Phone Message [id number] 03/30/2015 04/01/2015 [facility] Oncology [facility] Phone Message [id number] 03/30/2015 04/01/2015 [facility] Outpatient [id number] Joanne Granda 04/06/2015 04/07/2015 [facility] Outpatient [id number] Joanne Granda 05/10/2015 05/11/2015 [facility] Outpatient [id number] Joanne Granda 05/17/2015 05/18/2015 [facility] OP Recurring [id number] Joanne Granda 05/17/2015 06/16/2015 [facility] Oncology [facility] OP Recurring [id number] Joanne Granda 05/19/2015 06/18/2015 [facility] OP Recurring [id number] Joanne Granda 07/01/2015 07/31/2015 [facility] Oncology [facility] Outpatient [id number] Joanne Granda 07/02/2015 07/03/2015 [facility] Oncology [facility] OP Recurring [id number] Joanne Granda 07/23/2015 08/22/2015 [facility] Outpatient [id number] Diony Emery 07/28/2015 07/29/2015 [facility] Outpatient [id number] Joanne Granda 08/10/2015 08/11/2015 [facility] OP Recurring [id number] Joanne Granda 08/12/2015 09/11/2015 [facility] Outpatient [id number] Joanne Granda 08/25/2015 08/26/2015 [facility] OP Recurring [id number] Joanne Granda 10/19/2015 11/18/2015 [facility] Oncology [facility] Outpatient [id number] oJanne Granda 10/20/2015 10/21/2015 [facility] Outpatient [id number] Joanne Granda 11/25/2015 11/26/2015 [facility] Outpatient [id number] Vernon Harris 12/10/2015 12/11/2015 [facility] Recurring [id number] Joanne Granda 01/20/2016 02/19/2016 [facility] Outpatient [id number] Joanne Granda 01/21/2016 01/22/2016 [facility] Outpatient [place] Outpatient [id number] Joanne Granda 01/25/2016 01/26/2016 [facility] Outpatient Imaging [place] Outpt Diag Services [id number] Joanne Granda 01/25/2016 01/26/2016 [facility] Outpatient [id number] Vinayak Fowler 02/02/2016 02/03/2016 [facility] Recurring [id number] Joanne Granda 04/11/2016 05/11/2016 [facility] Recurring [id number] Joanne Granda 04/12/2016 05/12/2016 [facility] Outpatient Imaging [facility] Outpatient [id number] Joanne Granda 06/05/2016 06/06/2016 [facility] [place] [facility] Outpatient Imaging [facility] Outpatient [id number] Joanne Granda 06/14/2016 06/15/2016 [facility] Recurring [id number] Joanne Granda 07/24/2016 08/23/2016 [facility] Outpatient [id number] Diony Emery 08/10/2016 08/11/2016 [facility] Phone Message [id number] 08/28/2016 08/29/2016 [facility] Outpatient [facility] Outpt Diag Services [id number] Joanne Granda 09/18/2016 09/19/2016 [facility] Outpatient Imaging [facility] Outpatient [id number] Joanne Granda 12/20/2016 12/21/2016 [facility] Recurring [id number] Joanne Granda 12/27/2016 01/26/2017 [facility] Outpatient [id number] Joanne Granda 01/11/2017 01/12/2017 [facility] [place] Outpt Diag Services [id number] 17 Clara Torreshta 04/16/2017 04/17/[address] [facility] Outpatient [id number] Yokasta Majmundar 06/10/2017 06/11/2017 [facility] Recurring [id number] Joanne Granda 07/25/2017 08/24/2017 [facility] Outpatient [id number] Yokasta Majmundar 10/21/2017 10/22/2017 [facility] Phone Message [id number] 12/04/2017 12/06/2017 [facility] Outpatient [id number] Dionyjt Emery 01/17/2018 01/17/2018 [facility] Oncology Re curring [id number] Joanne Granda 01/21/2018 02/20/2018 [facility] Outpatient [id number] Dionyjt Emery 01/30/2018 01/31/2018 [facility] [place] Outpatient [id number] Joanne Granda 02/06/2018 02/06/2018 [facility] Outpatient [id number] Joanne Granda 02/07/2018 02/08/2018 [facility] Recurring [id number] Joanne Granda 07/22/2018 08/21/2018 [facility] Outpatient [id number] Joanne Granda 08/12/2018 08/13/2018 [facility] SMR [place] OP Therapy Patients [id number] Vinayak Fowler 2018 11/03/2018 [facility] Outpatient [id number] Brock Zurita 10/25/2018 10/26/2018 [facility] Outpatient [id number] Vinayak Fowler 11/13/2018 11/14/2018 [facility] Outpatient [id number] Joanne Granda 02/11/2019 02/12/2019 [facility] Oncology Re curring [id number] Joanne Jesus Alberto 02/12/2019 03/14/2019 [facility] Outpatient [id number] Joanne Jesus Alberto 03/14/2019 03/15/2019 [facility] Outpatient [id number] Esthela Ferrer 09/10/2019 09/11/2019 [facility] Oncology Ph one Message [id number] 02/11/2020 02/13/2020 [facility] Outpatient [id number] Joanne Jesus Alberto 02/13/2020 02/14/2020 [facility] Oncology Re curring [id number] Joanne Jesus Alberto 02/16/2020 03/17/2020 [facility] Procedures Procedure Code Date Perfomer Comments Source Biopsy, breast, with placement of breast localization device(s) (eg, clip, metallic pellet), when performed, and imaging of the biopsy specimen, when performed, percutaneous; each additional lesion, including ultrasound guidance (List separately in additi [id number] 06/14/2016 [facility] Bone density scan [id number] 11/21/2015 [facility], KANE [facility] [place],[facility] Reconstruction of breast<sup>1</sup> [id number] 09/20/2015 implants in both breast [facility], LENORA Rashid, LENORA [place],[facility] Lumpectomy of breast [id number] 06/18/2013 [facility], LENORA Rashid, KANED [place],[facility] Gallbladder excision [id number] [facility], LENORA Rashid, LENORA Blank,[facility] Hysterectomy [id number] [facility], LENORA Rashid, LENORA [place],[facility] Assessment and Plan No Data Provided for This Section Plan of Care No Data Provided for This Section Social History Social History Date Source Social History TypeResponse Alcohol Current, Type Beer. Frequency: 3-5 times per week. Started age 23 Years. Previous treatment: None. Smoking Status Never smoker; Exposure to Tobacco Smoke None; Cigarette Smoking Last 365 Days No; Reg Smoking Cessation Counseling No1 entered on: 02/16/20 1never smoked 02/16/2020 [facility] Social History TypeResponse Alcohol Current, Type Beer. Frequency: 3-5 times per week. Started age 23 Years. Previous treatment: None. Smoking Status Never smoker; Exposure to Tobacco Smoke None; Cigarette Smoking Last 365 Days No; Reg Smoking Cessation Counseling No1 entered on: 07/22/18 1never smoked [facility]/30[facility] Social [facility] TypeResponse Alcohol Current, Type Beer. Frequency: 3-5 times per week. Started age 23 Years. Previous treatment: None. Smoking Status Never smoker; Exposure to Tobacco Smoke None; Cigarette Smoking Last 365 Days No; Reg Smoking Cessation Counseling No1 entered on: 02/12/19 1never smoked 01/30/2018 [facility] Social History TypeResponse Alcohol Current, Type Beer. Frequency: 3-5 times per week. Started age 23 Years. Previous treatment: None. Smoking Status Never smoker; Exposure to Tobacco Smoke None; Cigarette Smoking Last 365 Days No; Reg Smoking Cessation Counseling No1 entered on: 07/22/18 1never smoked 01/30/2018 [facility] [place] Social History TypeResponse Alcohol Current, Type Beer. Frequency: 3-5 times per week. Started age 23 Years. Previous treatment: None. Smoking Status Never smoker; Exposure to Tobacco Smoke None; Cigarette Smoking Last 365 Days No; Reg Smoking Cessation Counseling No1 entered on: 02/12/19 1never smoked 01/30/2018 [facility] Social History TypeResponse Alcohol Current, Type Beer. Frequency: 3-5 times per week. Started age 23 Years. Previous treatment: None. Smoking Status Never smoker; Exposure to Tobacco Smoke None; Cigarette Smoking Last 365 Days No; Reg Smoking Cessation Counseling No1 entered on: 07/25/17 1never smoked 07/25/2017 [facility] Social History TypeResponse Alcohol Current, Type Beer. Frequency: 3-5 times per week. Started age 23 Years. Previous treatment: None. Smoking Status Never smoker; Exposure to Tobacco Smoke None; Cigarette Smoking Last 365 Days No; Reg Smoking Cessation Counseling No1 1never smoked 12/27/2016 [facility] Blank Family History No Data Provided for This Section Advance Directives No Data Provided for This Section Functional Status No Data Provided for This Section
--- OUTSIDE RECORDS SUMMARY | 2020-04-30 21:26 | XMS REPORT | Continuity of Care Document ---
Author Author [facility] t Organization [facility] Address [address] [place] [address] Phone Unavailable Care Team Providers Care Lens Grinder Rough Name Role Phone CHRISTOPHER MONTENEGRO MD PCP Jose Rafael ENRIQUE Attphys Unavailable SWEETDaksha LAIGISEL Attphys Unavailable Payers Payer Name Policy Type Policy Number Effective Date Expiration Date Jose Rafael go Aet[employer] Pos [id number] 2016 00:00:00 [facility] Medicare A & B [id number] 2010 00:00:00 [facility] Problems Condition Name Condition Details Condition Category Status Onset Date Resolution Date Last Treatment Date Treating Clinician Comments Source Neuroleptic-induced tardive dyskinesia Neuroleptic-induced t ardive dyskinesia Disease Active 2019-03-13 00:00:00 Andrew Reagan Neuroleptic-induced Parkinsonism Neuroleptic-induced Parkinsonis m Disease Active 2019-03-13 00:00:00 Carolina Islam Essential tremor Essential tremor Disease Active 2019-03-13 00:00:00 Andrew Reagan Bipolar affective disorder in remission Bipolar affective di sorder in remission Disease Active 2019-03-13 00:00:00 Andrew Reagan Allergies, Adverse Reactions, Alerts Allergy Name Allergy Type Status Severity Reaction(s) Onset Date Inacti ve Date Treating Clinician Comments Source Sulfa (Sulfonamide Antibiotics) Propensity to adverse reactions to drug Active Other (See Comments) 2019-03-18 00:00:00 'throa t closes up' Morales Islam Codeine Allergy to Substance Active 2017-08-08 00:00:00 [facility] MYCIN Allergy to Substance Active 2017-08-08 00:00:00 [facility] Codeine Propensity to adverse reactions to drug Active GI Intolerance 2017-07-04 00:00:00 Andrew Edilia geremias Iodine Propensity to adverse reactions to drug Active Other (See Comments) 2017-07-04 00:00:00 Injectable- throat closes up Andrew Reagan Erythromycin Propensity to adverse reactions to drug Active Anaphylaxis 2016-04-12 00:00:00 PT IS ALLERGIC TO ALL "MYCIN S" Andrew Reagan Penicillins Propensity to adverse reactions to drug Active Anaphylaxis 2016-04-12 00:00:00 Andrew Edilia reginoist Penicillin Allergy to Substance Active Mild 2006-11-22 00:00:00 [facility] Sulfa (Sulfonamide Antibiotics) Allergy to Substance Active Mild 2006-11-22 00:00:00 [facility] Iodine Allergy to Substance Active Mild 2006-11-22 00:00:00 [facility] Family History Family Member Diagnosis Comments Start Date Stop Date Source Natural brother Diabetes Andrew Puckett ethodist Natural father Esophageal cancer Taz Reagan Natural mother Hypertension Andrew Reagan Social History Social Habit Start Date Stop Date Quantity Comments Source Sex Assigned At Taz Reagan Tobacco use and exposure 2019-03-31 00:00:00 2019-03-31 00:00:00 Neve r used Andrew Reagan Alcohol intake 2019-03-31 00:00:00 2019-03-31 00:00:00 Current drinker of alcohol (finding) Andrew Reagan Smoking Status Start Date Stop Date Source Never smoker Andrew Godo t Medications Ordered Medication Name Filled Medication Name Start Date Stop Da te Current Medication? Ordering Clinician Indication Dosage Frequency Signature (SIG) Comments Components Source omeprazole (PriLOSEC) 40 MG capsule 2019-03-27 16:16:11 Yes 40mg QD Take 40 mg by mouth nightly. Andrew lee clonAZEPAM (KlonoPIN) 2 MG tablet 2019-03-27 16:16:11 Yes 2mg QD Take 2 mg by mouth nightly. Andrew Reagan atorvastatin (LIPITOR) 20 MG tablet 2019-03-27 16:16:11 Yes 20mg QD Take 20 mg by mouth nightly. Andrew lee diazePAM (VALIUM) 10 MG tablet 2019-03-27 16:16:11 Yes 10mg Take 10 mg by mouth daily. 1-2 tabs PRN Andrew edwards DULoxetine (CYMBALTA) 60 MG capsule 2019-03-27 16:16:11 Yes 60mg QD Take 60 mg by mouth nightly. Andrew lee anastrozole (ARIMIDEX) 1 mg chemo tablet 2019-03-27 16:16:11 Yes 1mg QD Take 1 mg by mouth nightly. Andrew edwards lamoTRIgine (LaMICtal) 200 MG tablet 2019-03-27 16:16:11 Ye s 200mg QD Take 200 mg by mouth nightly. Andrew norris ascorbic acid, vitamin C, (VITAMIN C) 500 MG tablet 2018-06 16:16:11 Yes 1000mg QD Take 1,000 mg by mouth daily. Andrew Reagan calcium carbonate-vitamin D3 500 mg-200 unit per tablet 2019-03-27 16:16:11 Yes 1{tbl} Q.5D Take 1 tablet by mouth 2 (two) times a d ay with meals. Andrew Reagan cyanocobalamin (VITAMIN B-12) 1000 MCG tablet 2019-03-27 16:16:1 1 Yes 1000ug QD Take 1,000 mcg by mouth daily. Andrew Reagan pyridoxine, vitamin B6, (B-6) 100 MG tablet 2019-03-27 16:16:11 Yes 100mg QD Take 100 mg by mouth daily. Andrew Reagan LINZESS 145 mcg capsule 2019-02-13 00:00:00 Yes 145ug Take 145 mcg by mouth as needed. Andrew Reagan lisinopril (PRINIVIL,ZESTRIL) 10 mg tablet 2017-10-05 00:00:00 Yes QD nightly. Andrew Reagan ziprasidone (GEODON) 80 MG capsule 2017-06-24 00:00:00 Yes 160mg QD 160 mg nightly. Andrew Reagan Anastrozole 1 Mg Tablet Anastrozole 1 Mg Tablet Yes 1 Bedtime [facility] Atorvastatin Calcium (Lipitor) 20 Mg Tablet Atorvastat in Calcium (Lipitor) 20 Mg Tablet Yes 20 Daily [facility] Clonazepam 0.5 Mg Tablet Clonazepam 0.5 Mg Tablet Yes 2 Bedtime [facility] Diazepam 5 Mg Tablet Diazepam 5 Mg Tablet Yes 10 Bedtime [facility] Duloxetine Hcl (Cymbalta) 20 Mg Capcr Duloxetine Hcl (Cymbalta) 20 Mg Capcr Yes 60 Bedtime [facility] Lamorgine Lamorgine Yes 300 Bedtime [facility] Lisinopril Unknown Strength Lisinopril Unknown Strength Yes 10 Bedtime [facility] Omeprazole 40 Mg Capsule. Omeprazole 40 Mg Capsule. Yes 40 Bedtime [facility] Ziprasidone (Geodon) 20 Mg Cap Ziprasidone (Geodon) 20 Mg Cap Yes 120 Bedtime [facility] Sapris , Sapris , 2017-09-13 00:00:00 No Bedtime [facility] Atorvastatin Calcium (Lipitor*) 10 Mg Tablet, 10 Mg Or al Atorvastatin Calcium (Lipitor*) 10 Mg Tablet, 10 Mg Oral 2017-09-03 00:00:00 No 10 [facility] Duloxetine Hcl (Cymbalta) 20 Mg Capcr, 20 Mg Oral Dulo xetine Hcl (Cymbalta) 20 Mg Capcr, 20 Mg Oral 2017-09-03 00:00:00 No 20 Bed time [facility] Procedures Procedure Date / Time Performed Performing Clinician [facility] Computed tomography of brain without radiopaque contrast 201 02-21-26 00:00:00 CARMINA ENRIQUE [facility] Plan of Care Planned Activity Planned Date Details Comments Source Future Scheduled Test 2020-01-17 00:00:00 INFLUENZA VACCINE [code = INFLUENZA VACCINE] [facility] Scheduled Test 2019-06-15 00:00:00 BREAST CANCER SCRE ENING [code = BREAST CANCER SCREENING] [facility] Scheduled Test 2016-10-03 00:00:00 65+ PNEUMOCOCCAL V ACCINE (1 of 1 - PPSV23) [code = 65+ PNEUMOCOCCAL VACCINE (1 of 1 - PPSV23)] [facility] Scheduled Test 2001-10-03 00:00:00 COLONOSCOPY SCREEN ING [code = COLONOSCOPY SCREENING] [facility] Scheduled Test 2001-10-03 00:00:00 SHINGLES VACCINES (#1) [code = SHINGLES VACCINES (#1)] [facility] Encounters Start Date/Time End Date/Time Encounter Type Admission Type [facility] Care Department Encounter ID Source 2019-09-10 13:23:18 Outpatient [facility] [id number] [facility] 2019-03-05 08:21:03 Outpatient [facility] [id number] [facility] 2020-02-16 10:35:00 2020-02-16 10:35:00 Outpatient [facility] [id number] [facility] 2020-02-13 07:52:00 2020-02-13 07:52:00 Outpatient [facility] [id number] [facility] 2019-09-10 12:11:00 2019-09-10 12:11:00 Outpatient [facility] [id number] [facility] 2019-02-12 12:41:00 2019-02-12 12:41:00 Outpatient [facility] [id number] [facility] 2019-02-11 06:57:00 2019-02-11 06:57:00 Outpatient [facility] [id number] [facility] 2018-12-11 13:26:00 2018-12-11 16:10:00 Departed Emergency Room 1 CARMINA ENRIQUE [facility] [id number] [facility] 2017-08-07 21:45:00 2017-08-08 01:50:00 Departed Emergency Room ER NANCY MCKINNEY [facility] [id number] [facility] Results Test Description Test Time Test Comments Results Result Comments Source Creatine Kinase MB 2018-12-11 15:49:00 Test Item Creatine Kinase MB (test code = 11628-1) 1.80 0-5.0 [facility]landTroponin [id number] 15:49:00* Test Item Value Reference Range Interpretation Comments Troponin I (test code = TPR3012) 0.004 0-0.300 [facility] Tommj2804-10-84 15:42:00* Test Item Value Reference Range Interpretation Comments Sodium Level (test code = 2951-2) 144 136-145 [facility]Potassium Qlows0657-85-75 15:42:00* Test Item Value Reference Range Interpretation Comments Potassium Level (test code = 2823-3) 3.3 3.5-5.1 L [facility]landChloride Xpnmj0668-48-78 15:42:00* Test Item Value Reference Range Interpretation Comments Chloride Level (test code = 2075-0) 106 98-107 [facility]landCarbon Dioxide Zxroh2609-95-53 15:42:00* Test Item Value Reference Range Interpretation Comments Carbon Dioxide Level (test code = 2028-9) 28 22-29 [facility]landAnion [id number] 15:42:00* Test Item Value Reference Range Interpretation Comments Anion Gap (test code = 01954-5) 13.3 8-16 [facility]landBlood Urea Wsoyxygr6148-28-68 15:42:00* Test Item Value Reference Range Interpretation Comments Blood Urea Nitrogen (test code = 3094-0) 12 - [facility]landCreatinine2019-06-26 15:42:00* Test Item Value Reference Range Interpretation Comments Creatinine (test code = 2160-0) 0.78 0.57-1.11 [facility]landBUN/Creatinine Hesoo2542-55-66 15:42:00* Test Item Value Reference Range Interpretation Comments BUN/Creatinine Ratio (test code = 3097-3) 15 12-10 [facility]landEstimat Glomerular Filtration Rate 2018-12-11 15:42:00* Test Item Value Reference Range Interpretation Comments Estimat Glomerular Filtration Rate (test code = 811821274) > 60 >60 Ranges were taken from the National Kidney Disease Education Program and the [facility] literature.Reference ranges:60 or greater: Mymwiz31-24 ( for 3 consecutive months): Chronic kidney disease 15 or less: Kidney failureHCA Houston Healthcare MainlandGlucose Iiwze6947-47-52 15:42:00* Test Item Value Reference Range Interpretation Comments Glucose Level (test code = SSD2655) 74 74-118 [facility]landCalcium Vifyj2850-84-05 15:42:00* Test Item Value Reference Range Interpretation Comments Calcium Level (test code = 87647-6) 9.1 8.4-10.2 [facility]landTotal Ghwfzcdwm9690-97-11 15:42:00* Test Item Value Reference Range Interpretation Comments Total Bilirubin (test code = 1975-2) 0.1 0.2-1.2 L [facility] MainlandAspartate Amino Transf (AST/SGOT) 2018-12-11 15:42:00* Test Item Value Reference Range Interpretation Comments Aspartate Amino Transf (AST/SGOT) (test code = Aspartate Amino Transf (AST/SGOT)) 14 5-34 [facility]landAlanine Aminotransferase (ALT/SGPT) 2018-12-11 15:42:00* Test Item Value Reference Range Interpretation Comments Alanine Aminotransferase (ALT/SGPT) (test code = 1742-6) 17 0-55 [facility]landTotal Tlhphkc6924-84-81 15:42:00* Test Item Value Reference Range Interpretation Comments Total Protein (test code = 2885-2) 6.2 6.5-8.1 L [facility]landAlbumin2019-06-26 15:42:00* Test Item Value Reference Range Interpretation Comments Albumin (test code = 1751-7) 3.8 3.5-5.0 [facility]landGlobulin2019-06-26 15:42:00* Test Item Value Reference Range Interpretation Comments Globulin (test code = 76269-0) 2.4 2.3-3.5 [facility]landAlbumin/Globulin Olneg9701-61-12 15:42:00 * Test Item Value Reference Range Interpretation Comments Albumin/Globulin Ratio (test code = 1759-0) 1.6 0.8-2.0 [facility]landAlkaline Miodgdbshmy3771-82-80 15:42:00* Test Item Value Reference Range Interpretation Comments Alkaline Phosphatase (test code = 6768-6) 98 40-150 [facility]landCreatine Fyfgvo9694-56-95 15:42:00* Test Item Value Reference Range Interpretation Comments Creatine Kinase (test code = 2157-6) 57 29-168 [facility]landWhite Blood Wlqov5126-74-31 15:30:00* Test Item Value Reference Range Interpretation Comments White Blood Count (test code = 6690-2) 4.33 4.8-10.8 L [facility]landRed Blood Qmert4588-48-55 15:30:00* Test Item Value Reference Range Interpretation Comments Red Blood Count (test code = 789-8) 3.75 3.6-5.1 [facility]landHemoglobin2019-06-26 15:30:00* Test Item Value Reference Range Interpretation Comments Hemoglobin (test code = 56875-3) 12.3 12.0-16.0 [facility]landHematocrit2019-06-26 15:30:00* Test Item Value Reference Range Interpretation Comments Hematocrit (test code = 4544-3) 37.7 34.2-44.1 [facility]landMean Corpuscular Vjczab8176-01-99 15:30:00* Test Item Value Reference Range Interpretation Comments Mean Corpuscular Volume (test code = 787-2) 100.5 81-99 H [facility]landMean Corpuscular Esoywkbtny3265-44-64 15:30:00* Test Item Value Reference Range Interpretation Comments Mean Corpuscular Hemoglobin (test code = 785-6) 32.8 28-32 H [facility]landMean Corpuscular Hemoglobin Concent 2018-12-11 15:30:00* Test Item Value Reference Range Interpretation Comments Mean Corpuscular Hemoglobin Concent (test code = 786-4) 32.6 31-35 [facility]landRed Cell Distribution Njfhp6428-57-70 15:30:00* Test Item Value Reference Range Interpretation Comments Red Cell Distribution Width (test code = 69106-2) 12.4 11.7 -14.4 [facility] MainlandPlatelet Lgfis1182-67-75 15:30:00* Test Item Value Reference Range Interpretation Comments Platelet Count (test code = 777-3) 211 140-360 [facility]landNeutrophils (%) (Auto)2018-12-11 15:30:00 * Test Item Value Reference Range Interpretation Comments Neutrophils (%) (Auto) (test code = 23966-7) 69.7 38.7-80.0 [facility]landLymphocytes (%) (Auto)2018-12-11 15:30:00 * Test Item Value Reference Range Interpretation Comments Lymphocytes (%) (Auto) (test code = 736-9) 21.0 18.0-39.1 [facility]landMonocytes (%) (Auto)2018-12-11 15:30:00* Test Item Value Reference Range Interpretation Comments Monocytes (%) (Auto) (test code = 5905-5) 7.2 4.4-11.3 [facility]landEosinophils (%) (Auto)2018-12-11 15:30:00 * Test Item Value Reference Range Interpretation Comments Eosinophils (%) (Auto) (test code = 713-8) 1.2 0.0-6.0 [facility]landBasophils (%) (Auto)2018-12-11 15:30:00* Test Item Value Reference Range Interpretation Comments Basophils (%) (Auto) (test code = 706-2) 0.7 0.0-1.0 [facility]landIM GRANULOCYTES %2018-12-11 15:30:00* Test Item Value Reference Range Interpretation Comments IM GRANULOCYTES % (test code = IM GRANULOCYTES %) 0.2 0.0- 1.0 [facility]landNeutrophils # (Auto)2018-12-11 15:30:00* Test Item Value Reference Range Interpretation Comments Neutrophils # (Auto) (test code = 751-8) 3.0 2.1-6.9 [facility]landLymphocytes # (Auto)2018-12-11 15:30:00* Test Item Value Reference Range Interpretation Comments Lymphocytes # (Auto) (test code = 64296-6) 0.9 1.0-3.2 L [facility]landMonocytes # (Auto)2018-12-11 15:30:00* Test Item Value Reference Range Interpretation Comments Monocytes # (Auto) (test code = 742-7) 0.3 0.2-0.8 [facility]landEosinophils # (Auto)2018-12-11 15:30:00* Test Item Value Reference Range Interpretation Comments Eosinophils # (Auto) (test code = 711-2) 0.1 0.0-0.4 [facility]landBasophils # (Auto)2018-12-11 15:30:00* Test Item Value Reference Range Interpretation Comments Basophils # (Auto) (test code = 704-7) 0.0 0.0-0.1 [facility] MainlandAbsolute Immature Granulocyte (auto 2018-12-11 15:30:00* Test Item Value Reference Range Interpretation Comments Absolute Immature Granulocyte (auto (lucien t code = Absolute Immature Granulocyte (auto) 0.01 0-0.1 [facility] MainlandUrine Opiates Xruifc3179-54-00 15:26:00* Test Item Value Reference Range Interpretation Comments Urine Opiates Screen (test code = 72225-7) NEGATIVE NEGATIVE ALL TESTS PERFORMED MANUALLY ON Nu-Pulse TOX/SEE TESTHCA Houston Healthcare MainlandUrine Barbiturates Mqrujg9477-13-98 15:26:00* Test Item Value Reference Range Interpretation Comments Urine Barbiturates Screen (test code = 094527668) NEGATIVE NEGA TIVE [facility] MainlandUrine Phencyclidine Tqcsic1717-08-11 15:26:00* Test Item Value Reference Range Interpretation Comments Urine Phencyclidine Screen (test code = 77579-1) NEGATIVE NEGAT ABI [facility] MainlandUrine Amphetamines Qvxaka6695-54-94 15:26:00* Test Item Value Reference Range Interpretation Comments Urine Amphetamines Screen (test code = 81837-2) NEGATIVE NEGATI VE [facility] MainlandUrine Methamphetamines Hraoqm0155-26-02 15:26:00* Test Item Value Reference Range Interpretation Comments Urine Methamphetamines Screen (test code = Urine Metha mphetamines Screen) NEGATIVE NEGATIVE [facility] MainlandUrine Benzodiazepines Zztftm4295-07-51 15:26:00* Test Item Value Reference Range Interpretation Comments Urine Benzodiazepines Screen (test code = 79869-9) POSITIVE NEG ATIVE H This test provides only a screen. Positive results should be repeated by a confi rmatory test.[facility] MainlandUrine Cocaine Screen 2018-12-11 15:26:00* Test Item Value Reference Range Interpretation Comments Urine Cocaine Screen (test code = 3398-5) NEGATIVE NEGATIVE [facility] MainlandUrine Cannabinoids Odwycx1444-31-72 15:26:00* Test Item Value Reference Range Interpretation Comments Urine Cannabinoids Screen (test code = 35259-7) NEGATIVE NEGATI VE THESE RESULTS ARE FOR MEDICAL TREATMENT ONLYTHIS REPORT CONTAINS UNCONFIR MED SCREENING RESULTS*POSITIVE RESULTS WILL BE CONFIRMED BY REFERENCE LAB UPON R EQUEST CUT-OFFDRUG CLASS CONCENTRATION ng/mLAmphetamines 1000Methamphetamines 1000Cocaine 300Opiate 300Phencyc lidine 25Cannabinoid 50Barbiturates 300Benzodiazepine 300Methadone 300[facility]landUrine Methadone Almqjn9527-21-63 15:26:00* Test Item Value Reference Range Interpretation Comments Urine Methadone Screen (test code = 68796-1) NEGATIVE NEGATIVE THESE RESULTS ARE FOR MEDICAL TREATMENT ONLYTHIS REPORT CONTAINS UNCONFIR MED SCREENING RESULTS*POSITIVE RESULTS WILL BE CONFIRMED BY REFERENCE LAB UPON R EQUEST CUT-OFFDRUG CLASS CONCENTRATION ng/mLAmphetamines 1000Methamphetamines 1000Cocaine Metabolite 300Opiate 300Phencyc lidine 25Cannabinoid 50Barbiturates 300Benzodiazepine 300Methadone 300[facility]landCT BRAIN [id number] 14:27:00 [facility] [address] [place] [address] Patient Name: JAQUAN HERNANDEZ MR #: [id number] : 1950 Age/Sex: 68/F Req #: [id number] Adm Physician: Ordered by: CARMINA ENRIQUE MD Report #: [id number] Location: ER Room/Bed: Procedure: [id number] CT/ CT BRAIN WO Exam Date: 12/11/18 Exam Time: 1402 REPORT STATUS: Signed Exam: Head CT without contrast History: Possible stroke, slurred speech Comparison studie s: Head CT 08/07/2017 and brain MRI 12/06/2011. Technique: Axial images we re obtained from the skull base to the vertex. Coronal and sagittal images rec onstructed from the axial data. Dose modulation, iterative reconstruction, an d/or weight based adjustment of the mA/kV was utilized to reduce the radiation dose to as low as reasonably achievable. Radiation dose: Total DLP: 921 mGy*cm. Estimated effective dose: DLP x 0.015 Intravenous contrast: N one Findings: Scalp: No abnormalities. Bones: No fractures. No destr uctive lytic or blastic lesions. Brain sulci: The prominent. Ventricles: Mild compensatory dilatation. No hydrocephalus. Extra-axial spaces: No masses, no fluid collection. Parenchyma: No mass, acute hemorrhage or acute co rtical insults. Scattered ill-defined hypodensities in the supratentorial whit e matter are nonspecific but most compatible with chronic microvascular ischem ic changes. Sellar/suprasellar region: No abnormalities. Craniocervical j unction: Patent foramen magnum. No Chiari one malformation. Incidental find ings: Atherosclerotic calcifications in the carotid siphons.. IMPRESSION : No acute intracranial abnormalities. No changes from the prior head CT of 08/07/2017. Chronic findings: 1. Mild generalized volume loss. 2. Moderate supratentorial chronic microvascular ischemic changes. Signed by: Dr. Omero Noel M.D. on 12/11/2018 2:32 PM Dictated By: OMERO NOEL MD 1432 Transcribed By: JAMILA on 12/11/18 1432 COPY TO: CARMINA ENRIQUE MD Sodium Clzfb6473-65-32 00:09:00* Test Item Value Reference Range Interpretation Comments Sodium Level (test code = 2951-2) 140 136-145 [facility]landPotassium Rzaan8558-43-27 00:09:00* Test Item Value Reference Range Interpretation Comments Potassium Level (test code = 2823-3) 4.0 3.5-5.1 [facility]landChloride Ckfhu0200-11-26 00:09:00* Test Item Value Reference Range Interpretation Comments Chloride Level (test code = 2075-0) 102 98-107 [facility]landCarbon Dioxide Immxo5847-14-31 00:09:00* Test Item Value Reference Range Interpretation Comments Carbon Dioxide Level (test code = 2028-9) 27 22-29 [facility] MainlandAnion [id number] 00:09:00* Test Item Value Reference Range Interpretation Comments Anion Gap (test code = 14542-9) 15.0 8-16 [facility]landBlood Urea Ybycfhow1701-92-51 00:09:00* Test Item Value Reference Range Interpretation Comments Blood Urea Nitrogen (test code = 3094-0) 16 7-26 [facility]landCreatinine2018-02-21 00:09:00* Test Item Value Reference Range Interpretation Comments Creatinine (test code = 2160-0) 0.81 0.57-1.11 [facility]landBUN/Creatinine Dcqwk9781-04-73 00:09:00* Test Item Value Reference Range Interpretation Comments BUN/Creatinine Ratio (test code = 3097-3) 20 6-25 [facility] MainlandEstimat Glomerular Filtration Rate 2017-08-08 00:09:00* Test Item Value Reference Range Interpretation Comments Estimat Glomerular Filtration Rate (test code = 19811-0) 60- >60 Ranges were taken from the National Kidney Disease Education Program and the [facility] literature.Reference ranges:60 or greater: Meswdd20-25 ( for 3 consecutive months): Chronic kidney disease 15 or less: Kidney failureHCA [facility] Healthcare MainlandGlucose Aaorq7611-68-08 00:09:00* Test Item Value Reference Range Interpretation Comments Glucose Level (test code = BXO2817) 119 74-118 H [facility]landCalcium Sglat9221-98-06 00:09:00* Test Item Value Reference Range Interpretation Comments Calcium Level (test code = 10678-5) 9.4 8.4-10.2 [facility]landTotal Bmbwtqwiy6360-92-83 00:09:00* Test Item Value Reference Range Interpretation Comments Total Bilirubin (test code = 1975-2) -0.3 0.2-1.2 [facility] MainlandAspartate Amino Transf (AST/SGOT) 2017-08-08 00:09:00* Test Item Value Reference Range Interpretation Comments Aspartate Amino Transf (AST/SGOT) (test code = Aspartate Amino Transf (AST/SGOT)) 22 5-34 [facility] MainlandAlanine Aminotransferase (ALT/SGPT) 2017-08-08 00:09:00* Test Item Value Reference Range Interpretation Comments Alanine Aminotransferase (ALT/SGPT) (test code = 1742-6) 21 0-55 [facility]landTotal Mtdotcu0901-88-34 00:09:00* Test Item Value Reference Range Interpretation Comments Total Protein (test code = 2885-2) 7.4 6.5-8.1 [facility]* Test Item Value Reference Range Interpretation Comments Albumin (test code = 1751-7) 3.6 3.5-5.0 [facility]ulin2018-02-21 00:09:00* Test Item Value Reference Range Interpretation Comments Globulin (test code = 46503-1) 3.8 2.3-3.5 H [facility]Album[facility]/Globulin Egiqi9011-25-41 00:09:00 * Test Item Value Reference Range Interpretation Comments Albumin/Globulin Ratio (test code = 1759-0) 0.9 0.8-2.0 [facility]landAlkaline Avbalmybqis0682-15-72 00:09:00* Test Item Value Reference Range Interpretation Comments Alkaline Phosphatase (test code = 6768-6) 116 40-150 [facility]landCreatine Glxakz1948-42-51 00:09:00* Test Item Value Reference Range Interpretation Comments Creatine Kinase (test code = 2157-6) 162 29-168 [facility]landCreat[facility] Kinase UC1310-52-47 00:09:00* Test Item Value Reference Range Interpretation Comments Creatine Kinase MB (test code = 51242-7) 1.20 0-5.0 [facility]landTroponin Y3588-23-85 00:09:00* Test Item Value Reference Range Interpretation Comments Troponin I (test code = NHS8397) -0.001 0-0.300 [facility]landWhite Blood Hquqf1428-17-89 00:05:00* Test Item Value Reference Range Interpretation Comments White Blood Count (test code = 6690-2) 5.14 4.8-10.8 [facility]landRed Blood Sqtau6522-84-14 00:05:00* Test Item Value Reference Range Interpretation Comments Red Blood Count (test code = 789-8) 3.60 3.6-5.1 [facility]landHemoglobin2018-02-21 00:05:00* Test Item Value Reference Range Interpretation Comments Hemoglobin (test code = 58072-8) 11.8 12.0-16.0 L [facility]Hematocrit2018-02-21 00:05:00* Test Item Value Reference Range Interpretation Comments Hematocrit (test code = 4544-3) 35.0 34.2-44.1 [facility]landMean Corpuscular Zwbpvc0815-87-51 00:05:00* Test Item Value Reference Range Interpretation Comments Mean Corpuscular Volume (test code = 787-2) 97.2 81-99 [facility]Mean Corpuscular Wgqmwptpxy7186-79-35 00:05:00* Test Item Value Reference Range Interpretation Comments Mean Corpuscular Hemoglobin (test code = 785-6) 32.8 28-32 [facility] Corpuscular Hemoglobin Concent 2017-08-08 00:05:00* Test Item Value Reference Range Interpretation Comments Mean Corpuscular Hemoglobin Concent (test code = 786-4) 33.7 31-35 [facility]landRed Cell Distribution Fzyuo9765-47-63 00:05:00* Test Item Value Reference Range Interpretation Comments Red Cell Distribution Width (test code = 70273-7) 12.3 11.7 -14.4 [facility]landPlatelet Mityj2919-30-48 00:05:00* Test Item Value Reference Range Interpretation Comments Platelet Count (test code = 777-3) 181 140-360 [facility]landNeutrophils (%) (Auto)2017-08-08 00:05:00 * Test Item Value Reference Range Interpretation Comments Neutrophils (%) (Auto) (test code = 55874-0) 69.4 38.7-80.0 [facility]landLymphocytes (%) (Auto)2017-08-08 00:05:00 * Test Item Value Reference Range Interpretation Comments Lymphocytes (%) (Auto) (test code = 736-9) 18.3 18.0-39.1 [facility]landMonocytes (%) (Auto)2017-08-08 00:05:00* Test Item Value Reference Range Interpretation Comments Monocytes (%) (Auto) (test code = 5905-5) 6.6 4.4-11.3 [facility]landEosinophils (%) (Auto)2017-08-08 00:05:00 * Test Item Value Reference Range Interpretation Comments Eosinophils (%) (Auto) (test code = 713-8) 4.9 0.0-6.0 [facility]landBasophils (%) (Auto)2017-08-08 00:05:00* Test Item Value Reference Range Interpretation Comments Basophils (%) (Auto) (test code = 706-2) 0.6 0.0-1.0 [facility]landIM GRANULOCYTES %2017-08-08 00:05:00* Test Item Value Reference Range Interpretation Comments IM GRANULOCYTES % (test code = IM GRANULOCYTES %) 0.2 0.0- 1.0 [facility]landNeutrophils # (Auto)2017-08-08 00:05:00* Test Item Value Reference Range Interpretation Comments Neutrophils # (Auto) (test code = 751-8) 3.6 2.1-6.9 [facility]landLymphocytes # (Auto)2017-08-08 00:05:00* Test Item Value Reference Range Interpretation Comments Lymphocytes # (Auto) (test code = 36724-5) 0.9 1.0-3.2 L [facility]landMonocytes # (Auto)2017-08-08 00:05:00* Test Item Value Reference Range Interpretation Comments Monocytes # (Auto) (test code = 742-7) 0.3 0.2-0.8 [facility]landEosinophils # (Auto)2017-08-08 00:05:00* Test Item Value Reference Range Interpretation Comments Eosinophils # (Auto) (test code = 711-2) 0.3 0.0-0.4 [facility]Basophils # (Auto)2017-08-08 00:05:00* Test Item Value Reference Range Interpretation Comments Basophils # (Auto) (test code = 704-7) 0.0 0.0-0.1 [facility]landAbsolute Immature Granulocyte (auto 2017-08-08 00:05:00* Test Item Value Reference Range Interpretation Comments Absolute Immature Granulocyte (auto (lucien t code = Absolute Immature Granulocyte (auto) 0.01 0-0.1 [facility]landCT [facility]RAIN WO [facility] [address] [place] [address] Patient Name: JAQUAN HERNANDEZ MR #: [id number] : 1950 Age/Sex: 66/F Req #: [id number] Adm Physician: Ordered by: NANCY MCKINNEY MD Report #: [id number] Location: ER Room/Bed: Procedure: [id number] CT/CT BRAIN WO Exam Date: Exam Time: REPORT STATUS: Signed Exam: Head CT wi thout contrast History: Dizziness Comparison studies: Brain MRI 12/14/2011 Technique: Axial images were obtained from the skull base to the vertex. Coronal and sagittal images reconstructed from the axial data. Intravenous c ontrast: None Findings: Scalp: No abnormalities. Bones: No fractures , blastic or lytic lesions. Brain sulci: Mildly prominent. Ventricles: Mi ld compensatory dilatation. No hydrocephalus. Extra-axial spaces: No masses, n o fluid collection. Parenchyma: No mass, acute hemorrhage or acute asha ical vascular insults. A few scattered hypodensities in the supratentorial whi te matter are nonspecific but most compatible with chronic small vessel ischem ic changes. Sellar/suprasellar region: No abnormalities. Craniocervical junction: Patent foramen magnum. No Chiari one malformation. Incidental fin dings: Atherosclerotic calcifications in the carotid siphons. IMPRESSION : No acute intracranial abnormalities. Chronic findings: 1. Mild g eneralized volume loss. 2. Moderate supratentorial microvascular ischemic nery nges. Signed by: Dr. Omero Noel M.D. on 08/08/2017 12:11 AM Dicta priyanka By: OMERO NOEL MD COPY TO: NANCY MCKINNEY MD
--- NOTE | 2020-04-30 21:35 | NUR ---
PT C NO RESPIRATORY DISTRESS. PT TOLERATING ICE WATER S COMPLAINT. MD AT BEDSIDE, ORDERED TO DISCHARGE.
[2020-04-30 21:42] VITALS: BP 108/57
== END 2020-04-30 21:43 | disposition home or self-care (01) ==
LOC: ER 20:17
DX: T17.220A Food in pharynx causing asphyxiation, initial encounter (principal); X58.XXXA Exposure to other specified factors, initial encounter; Y92.008 Other place in unspecified non-institutional (private) residence as the place of occurrence of the external cause; K21.9 Gastro-esophageal reflux disease without esophagitis; F31.9 Bipolar disorder, unspecified; Z85.3 Personal history of malignant neoplasm of breast; Z85.41 Personal history of malignant neoplasm of cervix uteri
CPT/HCPCS: 99283

== ENCOUNTER → 2020-05-31 | Day surgery (SDC) | payer OTHER, MEDICARE ==
[2020-05-27 13:44] LABS: EOSINOPHILS # (AUTO) 0.1 (0.0-0.4); EOSINOPHILS % 2.2 % (0.0-6.0); HEMATOCRIT 38.1 % (34.2-44.1); HEMOGLOBIN 12.2 g/dL (12.0-16.0); LYMPHOCYTES # (AUTO) 1.1 (1.0-3.2); LYMPHOCYTES % 27.4 % (18.0-39.1); MEAN CORPUSCULAR HEMOGLOBIN 32.3 pg (28-32); MEAN CORPUSCULAR VOLUME 100.8 fL (81-99); MONOCYTES # (AUTO) 0.4 (0.2-0.8); MONOCYTES % 10.3 % (4.4-11.3); NEUTROPHILS # (AUTO) 2.4 (2.1-6.9); NEUTROPHILS % 58.9 % (38.7-80.0); PLATELET COUNT 213 x10e3/uL (140-360); RED BLOOD COUNT 3.78 x10e6/uL (3.6-5.1); RED CELL DISTRIBUTION WIDTH 12.3 % (11.7-14.4)
[~2020-05-31] MED LIST changes: +FENTANYL CITRATE/PF 100MCG/2 ML INJ ONE; +LIDOCAINE HCL 2% LOCAL INJ 5 ML SDV VIAL INJ ONE; +ONDANSETRON HCL INJ 2MG/ML 2ML 2 MG/ML VIAL ONE; +PANTOPRAZOLE 40 MG 10ML VIAL ONE; +PROPOFOL IV EMULSION 10 MG/ML 20 ML VIAL ONE
[2020-05-31 08:30] VITALS: BP 127/74
[2020-06-02 16:10] LABS: ENDOMYSIAL ANTIBODIES, IGA Negative (Negative)
== END | disposition home or self-care (01) ==
LOC: ENDO 06:06
PROVIDERS: ATTEND Internal Medicine Gastroenterology
DX: K29.50 Unspecified chronic gastritis without bleeding (principal); K20.90 Esophagitis, unspecified without bleeding; K22.2 Esophageal obstruction; K29.70 Gastritis, unspecified, without bleeding; K31.7 Polyp of stomach and duodenum; K21.9 Gastro-esophageal reflux disease without esophagitis; Z86.010 Personal history of colon polyps; I10 Essential (primary) hypertension; Z88.5 Allergy status to narcotic agent; Z88.0 Allergy status to penicillin; Z88.2 Allergy status to sulfonamides; Z91.048 Other nonmedicinal substance allergy status; F31.9 Bipolar disorder, unspecified; Z85.3 Personal history of malignant neoplasm of breast; Z01.810 Encounter for preprocedural cardiovascular examination; Z01.812 Encounter for preprocedural laboratory examination; Z20.828 Contact with and (suspected) exposure to other viral communicable diseases
CPT/HCPCS: 36415; 43239; 43450; 82784; 83516; 85025; 86256; 93005; C9113; J2001; J2405; J2704; J3010; U0002